=== PATIENT | female | born 1965 | race Caucasian/White ===

== ENCOUNTER → 2017-03-03 | Outpatient (CLI) | payer BC ==
[~2017-03-03] MED LIST: CEPH500C2 PO; CYAN3INJ IM; FERRTAB18 PO; IMT50 PO; LSN20 PO; MTR800 PO; NXM/40 PO; PEDICHW50 PO; PROM1SYP PO; VNTHFA/IN INH
[2017-03-03 18:24] LABS: URINE APPEARANCE CLEAR (CLEAR); URINE BILIRUBIN NEG (NEG); URINE COLOR YELLOW; URINE NITRITE NEG (NEG); URINE PH 5.5 (4.5-7.5); URINE SPECIFIC GRAVITY 1.007 (1.000-1.030); UROBILINOGEN NEG (NEG)
[2017-03-03 18:27] LABS: INR 0.9 (0.9-1.1); PARTIAL THROMBOPLASTIN RATIO 1.2; PROTHROMBIN TIME (PATIENT) 9.6 SECONDS (9.0-12.0)
[2017-03-03 18:28] LABS: BASO % 0.5 %; BASO ABS # 0.02 K/uL (0-0.2); COMPLETE YES; EOS % 8.9 %; HEMATOCRIT 38.4 % (37-47); LYMPH % 25.3 %; LYMPH ABS # 1.02 K/uL (1.2-3.4); MEAN CELL VOLUME 80.8 fL (80-100); MEAN CORPUSCULAR HEMOGLOBIN 25.1 pg (25-34); MEAN PLATELET VOLUME 9.2 fL (7.4-10.4); MONO % 13.9 %; NEUT % 51.4 %; PLATELET COUNT 307 K/uL (130-400); RED BLOOD COUNT 4.75 M/uL (4.2-5.4); WHITE BLOOD COUNT 4.03 K/uL (4.8-10.8)
[2017-03-03 18:29] LABS: MANUAL MICROSCOPIC REQUIRED? NO; REVIEW REQ? NO
[2017-03-03 18:43] LABS: BLOOD UREA NITROGEN 8 mg/dl (7-18); BUN/CREATININE RATIO 13.3 (10-20); CALCIUM 8.8 mg/dl (8.5-10.1); CARBON DIOXIDE 31 mmol/L (21-32); CHLORIDE 103 mmol/L (98-107); CREATININE 0.58 mg/dl (0.60-1.20); GLUCOSE 80 mg/dl (70-99); POTASSIUM 4.1 mmol/L (3.5-5.1); SODIUM 140 mmol/L (136-145)
--- NOTE | 2017-03-03 19:25 | DIAGNOSTIC IMAGING REPORT ---
TWO VIEW CHEST CLINICAL HISTORY: Preoperative examination. FINDINGS: PA and lateral chest radiographs are compared to study dated 06/24/2015 and correlated with chest CT dated 09/07/2015. The PA view is degraded by patient rotation. The cardiomediastinal silhouette is unremarkable. There is mild atherosclerotic calcification of the thoracic aorta. Chronic interstitial thickening is similar to previous. The lungs and pleural spaces are clear. There is no pneumothorax. The bony thorax appears intact. IMPRESSION: No active disease in the chest. Electronically signed by: Juan Carlos Jimenez M.D. 03/03/2017 7:24 PM Dictated Date/Time: 03/03/2017 7:23 PM
== END | disposition home or self-care (01) ==
LOC: C.RAD 16:50
PROVIDERS: ATTEND Orthopaedic Surgery Sports Medicine
DX: Z01.810 Encounter for preprocedural cardiovascular examination (principal)

== ENCOUNTER 2017-03-07 05:35 | Observation (INO) | payer BC ==
[2017-03-03 14:38] VITALS: Ht 160 cm; Wt 80.9 kg
--- NOTE | 2017-03-06 20:12 | HISTORY & PHYSICAL EXAMINATION ---
DATE OF ADMISSION: 03/07/2017 SUBJECTIVE CHIEF COMPLAINT: Left ankle pain and cellulitis. HISTORY OF PRESENT ILLNESS: This is a patient who had a pantalar fusion done years ago and developed chronic cellulitis of the left lower extremity. She subsequently had the hardware removed, actually the fusion had healed and had a spacer placed into the area of the arnulfo made of antibiotic cement with a metal arnulfo in the central portion. The patient was doing well; however, over the past few months she has had worsening chronic cellulitis of the left lower extremity. She has had a change in her p.o. antibiotics which she has been on for multiple years. At this time, she is going to be set up for removal of the antibiotic cement spacer. PAST MEDICAL HISTORY: Asthma and acid reflux. SOCIAL HISTORY: The patient denies alcohol and tobacco use. PAST SURGICAL HISTORY: x4, gastric bypass surgery, multiple ankle surgeries and skin removal surgery. ALLERGIES: MORPHINE AND GENTAMICIN. CURRENT MEDICATIONS: Lisinopril 2.5 mg one p.o. daily, Imitrex 25 mg one p.o. at the onset of a headache, Advair Diskus one puff every 4 hours as needed, Nexium 40 mg one p.o. daily, levofloxacin 500 mg one p.o. daily, Augmentin 500/125 mg one p.o. b.i.d. and ibuprofen 800 mg one p.o. b.i.d. p.r.n. OBJECTIVE PHYSICAL EXAMINATION: GENERAL: The patient is alert and oriented x3. She is in no acute distress. She is a well-dressed, well-nourished 51-year-old female. Her affect is appropriate. CARDIOVASCULAR: Heart has a regular rhythm and rate without murmurs. LUNGS: Clear to auscultation. EXTREMITIES: Dorsalis pedis, posterior tib pulse +2/4. Cap refill is less than 2 seconds. LYMPHATIC: No evidence of any swollen lymph nodes. MUSCULOSKELETAL: The patient has a compensated gait favoring the left lower extremity. Upon inspection of the left lower extremity, the patient has well-healed surgical incisions of the left ankle and foot. There is mild erythema and moderate edema noted of the left lower extremity, she has diffuse tenderness. There is no range of motion secondary to ankle and subtalar fusions. NEUROLOGIC: Sensation is normal and intact distally. X-RAY EXAM: Multiple views of the left ankle demonstrate a metal arnulfo with slight curvature at the most inferior aspect to what appears to be a spacer of cement from the plantar calcaneus into the distal one-third aspect of the tibia. ASSESSMENT AND DIAGNOSES: 1. Chronic and recurrent cellulitis, left lower extremity. 2. Retained implant, left lower extremity. PLAN: The above assessment was discussed with the patient. At this time, it is recommended the patient have removal of the antibiotic cement from the plantar heel and possible implantation of Stimulan antibiotic beads into the canal. All potential risks, benefits, complications, alternatives and rehab have been discussed with the patient. At this time, she wishes to proceed with the surgery as indicated and she will be scheduled for the surgery on 03/07/2017.
[~2017-03-07] VITALS: Ht 160 cm; Wt 80.9 kg
[2017-03-07] VITALS (10 sets, daily range): BP systolic 106–143; BP diastolic 67–89; PULSE 74–90; TEMP 36.7–37.1; O2SAT 92–100
[~2017-03-07 05:35] MED LIST changes: -CEPH500C2 PO; -FERRTAB18 PO; -MTR800 PO
[2017-03-07] MEDS ORDERED: CEFAZOLIN 2000 MG/60 ML D5W IV SCH (06:00)
[2017-03-07] MEDS ORDERED: LACTATED RINGER'S 1000ML IV SCH (06:00)
[2017-03-07] MEDS ORDERED: DEXAMETHASONE SOD INJ 4 MG/ML VIAL ONE (06:23)
[2017-03-07] MEDS ORDERED: BUPIVACAINE/EPINEPHRINE 0.25% 1:200,000 30 ML VIAL ONE (06:23)
[2017-03-07] MEDS ORDERED: FENTANYL CITRATE INJ 50 MCG/1 ML 2 ML VIAL ONE ×2 (06:53→09:51)
[2017-03-07] MEDS ORDERED: MIDAZOLAM HCL 1 MG/ML 2ML VIAL ONE ×3 (06:53→08:10)
[2017-03-07] MEDS ORDERED: PROPOFOL IV EMULSION 10 MG/ML 20 ML VIAL IV ONE ×2 (06:53→08:34)
[2017-03-07] MEDS ORDERED: LIDOCAINE HCL 2% 2 ML VIAL (20MG/ML) ONE ×2 (06:53→08:34)
[2017-03-07] MEDS ORDERED: BUPIVACAINE 0.5 % 5 MG/1 ML MPF 30ML VIAL ONE (07:06)
--- NOTE | 2017-03-07 07:36 | History & Physical Bridge Note ---
H&P Re-Evaluation Bridge Note: I have examined the patient, reviewed the History & Physical and in the interval since the performance of the History & Physical I have noted the following changes of clinical significance: No changes noted
[2017-03-07] MEDS ORDERED: BACITRACIN 50000 UNIT VIAL ONE (07:54)
[2017-03-07] MEDS: VANCOMYCIN HCL 1000MG/20ML VIAL ONE ×2 (08:45→08:47)
[2017-03-07] MEDS ORDERED: SOD PHOSPHATE/SOD BIPHOSPHATE ENEMA 132 ML BTL PR PRN (09:30)
[2017-03-07] MEDS ORDERED: PROMETHAZINE HCL INJ 6.25 MG in SODIUM CHLORIDE 0.9% 50ML 50 ML IV PRN (09:30)
[2017-03-07] MEDS ORDERED: PROMETHAZINE HCL 12.5 MG/10 ML UDP PO PRN (09:30)
[2017-03-07] MEDS ORDERED: FENTANYL CITRATE INJ 50 MCG/1 ML 2 ML VIAL IV PRN (09:30)
[2017-03-07] MEDS ORDERED: ALUMINUM/MAGNESIUM/SIMETH (MAALOX MAX) 30 ML UDC PO PRN (09:30)
[2017-03-07] MEDS ORDERED: ALBUTEROL HFA 8 GM INHALER INH PRN (09:30)
[2017-03-07] MEDS ORDERED: SUMATRIPTAN SUCCINATE 50 MG TAB PO PRN (09:30)
[2017-03-07] MEDS ORDERED: BISACODYL 10 MG SUPP PR PRN (09:30)
[2017-03-07] MEDS ORDERED: EpHEDrine SULFATE INJ 50 MG/ML AMP IV PRN (09:30)
[2017-03-07] MEDS ORDERED: MAGNESIUM HYDROXIDE SUSP 30 ML UDC PO PRN (09:30)
[2017-03-07] MEDS ORDERED: ONDANSETRON INJ 2 MG/ML 2 ML VIAL IV PRN (09:30)
[2017-03-07] MEDS ORDERED: ZOLPIDEM TARTRATE 5 MG TAB PO PRN (09:30)
[2017-03-07] MEDS ORDERED: ATROPINE SULFATE 0.1 MG/ML 5ML SYR IV PRN (09:30)
--- NOTE | 2017-03-07 09:33 | [facility] Post Operative Brief Note ---
Immediate Operative Summary Operative Date March 07, 2017. Pre-Operative Diagnosis Left Retained antibiotic tibial nail; Cellulitis Post-Operative Diagnosis Left Retained antibiotic tibial nail; Cellulitis Procedure(s) Performed Left Removal Antibiotic Tibial Nail, Irrigation and Debridement Tibia, Talus and Calcaneus Bone; Implantation of Stimulan Antibiotic Beads Surgeon Dr. Anthony Harman Repairer Cylinder Heads Surgeon(s) Kyle Daly PA-C Estimated Blood Loss 10ml Findings See Dict Specimens SPECIMEN A: Explant Drains None Anesthesia Local w/ spinal and sedation Complication(s) None Disposition Recovery Room / PACU
--- NOTE | 2017-03-07 09:49 | Discharge Instructions ---
Discharge Instructions Date of Service March 07, 2017. Admission Reason for Admission: Left Ankle Painful Hardware Discharge Discharge Diagnosis / Problem: left ankle retained hardware, recurrent cellulitis Discharge Goals Goal(s): Decrease discomfort Activity Recommendations Activity Limitations: per Instructions/Follow-up section Weightbearing Status: Left non-weightbearing . Instructions / Follow-Up Instructions / Follow-Up PAIN MEDICATIONS: Recent Dilaudid prescriptions have been filled from pain management. You are to continue your Dilaudid from them for post operative care after discharge. Their clinic will be responsible for your pain prescriptions. ACTIVITY RECOMMENDATIONS: Limitations: No weight bearing to affected limb at all times. SPECIAL CARE INSTRUCTIONS: * Some drainage onto the dressing is normal and is no cause for alarm. * Some swelling is natural especially after walking. * When resting, keep your foot elevated above the level of your heart. * Call [facility] if you notice: -Increased drainage -Fever over 101 degrees F -Severe constant pain BANDAGE: * Leave bandage/cast in place unless otherwise directed. * Keep bandage/cast dry at all times. FOLLOW UP VISIT WITH DR. CHAVEZ If appointment is not already scheduled: Please call [facility] after you get home today to schedule a follow-up appointment for [address] Chavez at . Current Hospital Diet Patient's current hospital diet: Regular Diet Discharge Diet Recommended Diet: Regular Diet Procedures Procedures Performed: Left Removal Antibiotic Tibial Nail, Irrigation and Debridement Tibia, Talus and Calcaneus Bone; Implantation of Stimulan Antibiotic Beads Pending Studies Studies pending at discharge: no Medical Emergencies . Who to Call and When: Medical Emergencies: If at any time you feel your situation is an emergency, please call 911 immediately. . Non-Emergent Contact Non-Emergency issues call your: Surgeon Call Non-Emergent contact if: temperature is above 101, wound has increased drainage . "Provider Documentation" section prepared by Kyle Daly. . VTE Core Measure Inpt VTE Proph given/why not?: Ramin Shirley
[2017-03-07] MEDS ORDERED: IV FLUIDS COMPLETED PRN (10:00)
[2017-03-07] MEDS ORDERED: ONDANSETRON INJ 2 MG/ML 2 ML VIAL ONE (10:01)
--- NOTE | 2017-03-07 10:03 | OPERATIVE REPORT ---
DATE OF OPERATION: 03/07/2017 PREOPERATIVE DIAGNOSES: 1. Left retained antibiotic tibial nail. 2. Cellulitis, left lower extremity. POSTOPERATIVE DIAGNOSIS: Same. PROCEDURES: 1. Left removal of antibiotic tibial nail. 2. Irrigation and debridement of the tibia, irrigation and debridement of the talus, irrigation and debridement of the calcaneus. 3. Implantation antibiotic laden Stimulan beads with vancomycin. SURGEON: Dr. Harman. LABOR EXPEDITER: Kyle Daly PA-C who was present for patient positioning, sterile prep and drape, management of retractors and instruments. He was present through the critical portions of the case including wound closure, application of sterile dressing and transport of the patient to recovery. ANESTHESIA: Local with spinal and sedation. SPECIMENS: Explant from the left tibia. DRAINS: None. COMPLICATIONS: None. BLOOD LOSS: 10 mL. 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 She subsequently had been treated for osteomyelitis of the distal tibia prior to that which was essentially cleared as proven by indium-labeled white cell scan with sulfur colloid studies. The patient had a placement of antibiotic laden cement tibial nail placed to treat osteomyelitis which was supposed successful; however, the nail had been implanted for several months and it was due time to be removed. The patient also had intermittent cases of cellulitis without abscess of the left lower extremity managed with oral antibiotics and rest. The patient was then scheduled for removal of antibiotic tibial nail and implantation of stimulon antibiotic beads. All potential risks, benefits, complications, alternatives, rehab, potential for incomplete relief of symptoms, need for further surgery, DVT, PE, , persistent pain, swelling, scarring, weakness, neurovascular injury, wound complications, need for further surgery up to possibly leading to amputation of the lower extremity was discussed with the patient. The patient decided to proceed with the procedure as indicated. OPERATION AND FINDINGS: PROCEDURE: The patient was taken to the operative suite, placed supine on the operating room table. After review of the consent and identification of proper operative site, the patient was then sedated and a spinal anesthetic was administered by the anesthesiologist. Next, the patient was laid supine on the operating room table and the left lower extremity was then sterilely prepped and draped in usual fashion with a tourniquet applied high on the left lower extremity over cast padding. This was then followed by incision in the plantar aspect of the left heel inside the previous incision with a 15 blade scalpel. Next, the Metzenbaum scissors were used to carefully dissect through the plantar heel pad along the site of previous incision down to the level of the plantar calcaneus. The distal end of the cement tibial nail was then encountered and using a pair of heavy pliers the nail was then removed without difficulty. Next, a small curet was then introduced into the tibia, talus and calcaneus to debride the endosteal zone of the bones mentioned and then pulsatile lavage 6 liters with bacitracin was used to lavage until clear. After this was completed stimulon vancomycin laden antibiotic beads were created and then placed into the medullary canal of the tibia within the talus and the calcaneus and impacted with multiple instruments and a small mallet. The beats were then impacted with a small bone tamp and mallet. The wound was then irrigated once again with pulsatile lavage and then the tissue was closed full thickness with 2-0 nylon suture. Once this was completed an ankle block and local anesthetic was injected 0.5% Marcaine plain, approximately 30 mL and sterile compressive dressing and posterior plaster splint was applied overwrapped with an Mathew wrap. The tourniquet was released. The patient was awakened and taken to recovery in stable condition. I attest to the content of the Intraoperative Record and any orders documented therein. Any exceptio ns are noted below.
--- NOTE | 2017-03-07 10:21 | Anesthesiology Progress Note ---
Anesthesia Post Op Note Date & Time March 07, 2017 at 10:20 Vital Signs Pain Intensity: 2 Vital Signs Past 12 Hours Date Time Temp Pulse Resp B/P Pulse Ox O2 Delivery O2 Flow Rate FiO2 03/07/17 10:10 71 18 121/65 99 Nasal Cannula 3 03/07/17 09:55 75 18 133/74 99 Nasal Cannula 3 03/07/17 09:45 36.9 74 18 129/74 100 Nasal Cannula 3 03/07/17 09:35 73 16 124/81 100 Nasal Cannula 3 03/07/17 09:25 36.7 77 16 106/69 100 Nasal Cannula 3 03/07/17 06:02 37 90 18 106/88 96 Room Air Notes Mental Status: alert / awake / arousable, participated in evaluation Pt Amnestic to Procedure: Yes Nausea / Vomiting: adequately controlled Pain: adequately controlled Airway Patency, RR, SpO2: stable & adequate BP & HR: stable & adequate Hydration State: stable & adequate Neuraxial Anesthesia: was administered, sensory block is resolving Anesthetic Complications: no major complications apparent
[2017-03-07] MEDS: HYDROmorphone INJ 1 MG/ML SYR IV PRN ×8 (11:14→22:05)
[2017-03-07] MEDS: D5W AND 1/2NSS + 20MEQ KCL 1,000 ML IV SCH (11:14)
--- NOTE | 2017-03-07 11:37 | DIAGNOSTIC IMAGING REPORT ---
LEFT ANKLE 3 VIEWS CLINICAL HISTORY: Postoperative examination. FINDINGS: Three portable views of the left ankle are compared to a study dated 10/29/2015. The examination is performed through a splint, obscuring fine bony detail. The skeletal structures are osteopenic. There are postoperative changes from fusion of the left ankle joint. There is complete fusion of the tibia, the talus, and the calcaneus. The distal fibula has been resected. The orthopedic hardware has been removed as compared to previous. Radiodense structures fill the hardware cavity, possibly representing antibiotic material. Additional small radiodensities are seen along the plantar aspect of the foot at the level of the anterior calcaneus. No acute fracture is identified. No bony erosion or periostitis is seen. Degenerative spurring is seen along the dorsal aspect of the tarsal bones. Soft tissue edema is present throughout the visualized left lower extremity. IMPRESSION: 1. Diffuse soft tissue edema with no acute bony abnormality clearly identified. 2. There are postoperative changes from ankle joint fusion. Orthopedic hardware has been removed from previous. 3. Radiodensities fill the orthopedic hardware cavity, possible representing antibiotic material. Clinical correlation will be required. Dictated: 03/07/2017 10:14 AM Transcribed: 03/07/2017 11:37 AM [place] Electronically signed by: Juan Carlos Jimenez M.D. 03/07/2017 11:49 AM Dictated Date/Time: 03/07/2017 10:14 AM
[2017-03-07] MEDS: KETOROLAC TROMETHAMINE 30 MG/ML VIAL IV. SCH ×2 (11:56→17:28)
--- NOTE | 2017-03-07 11:57 | Medical Consult ---
Consultation Date of Consultation: March 07, 2017. Attending Physician: Anthony Harman D.O. Reason for Consultation: Recurrent cellulitis, post op History of Present Illness Patient is a 51-year-old female who was admitted to the hospital under the orthopedic service for concerns of chronic and recurrent left lower extremity cellulitis in the setting of antibiotic laden cement tibial nail placement following osteomyelitis of the distal tibia. Since that the patient has been noted cellulitis the extremity. She has been treated with oral antibiotic therapy, and most recently was on p.o. Augmentin. She was admitted for removal of the tibial nail and now had placement of antibiotic beads following that removal process this admission. I did discuss this patient with Kyle Denise PA-C as well. I reviewed the patient's records thoroughly. Cultures from previous infections were reviewed, it was noted that the patient has had MSSA in the. 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 She is currently being treated with IV Ancef postoperatively. She has not had any labs micro completed. She did have ankle x-ray which showed diffuse tissue edema with no acute bony abnormality the left ankle. Postoperative changes from ankle joint effusion were noted, and orthopedic hardware removal was also noted from previous exam. Past Medical/Surgical History Medical Problems: (1) Cellulitis of left lower extremity Permanent Comment: Recurrent Status: Acute (2) Fever Status: Acute Medical Problems: (1) Acute lumbar back pain (2) Acute pulmonary embolus (3) Anemia (4) Ankle pain (5) Asthma (6) Cellulitis (7) Cellulitis (8) cellulitis (9) Cellulitis and abscess of left lower extremity (10) Cellulitis of left lower leg (11) Cellulitis of leg (12) Cellulitis, wound, post-operative (13) Chills (14) Chronic abdominal pain (15) Encounter for wound re-check (16) Foot pain, left (17) GERD (gastroesophageal reflux disease) (18) Hypertension (19) intractable abdominal pain (20) Left leg cellulitis (21) Left leg cellulitis (22) Left leg cellulitis (23) Left leg pain (24) Leg pain, left (25) Migraine headache (26) Pain of left lower leg (27) Retained suture (28) Right hip pain (29) Sepsis (30) SIRS (systemic inflammatory response syndrome) (31) status post gastric by pass surgery 2 years back (32) Tachycardia (33) Wound cellulitis Family History Patient reports no known family medical history. Noncontributory Social History Smoking Status: Never Smoker Drug Use: none Marital Status: Occupation Status: employed Allergies Coded Allergies: Gentamicin (Verified Allergy, Intermediate, HIVES/RASH-GAVE BENADRYL 50MG IV, 03/07/17) Latex1 -Allergic Contact Dermititis (Verified Allergy, Unknown, SWOLLEN EYES, 03/07/17) UNSURE - ONLY HAPPENED ONCE Morphine (Verified Adverse Reaction, Unknown, Shaking, diaphoretic, rash, 03/07/17) Home Medications Reported Home Medications Medications Dose Route/Sig Max Daily Dose Days Date Category Dose Instructions Ventolin Hfa (Albuterol) 200 Puffs/61492 Mcg Aers 2-4 Puffs INH Q6H PRN 03/03/17 Reported Flintstones Chewable (Pediatric Multiple Vitamin W/) 1 Chw Chw 1 Tab PO QAM 05/23/16 Reported Vitamin B-12 Inj (Cyanocobalamin) Inj 1,000 Mcg IM MONTHLY 04/13/15 Reported Lisinopril 20 Mg Tab 20 Mg PO QAM 04/13/15 Reported Sumatriptan Succinate 50 Mg Tab 50 Mg PO UD PRN 04/13/15 Reported TAKE 1 TABLET AT ONSET OF MIGRAINE, MAY REPEAT IN 2 HOURS IF NEEDED. MAXIMUM OF 4 TABLETS/24 HOURS. Phenergan 6.25MG/5ML (Promethazine HCl) Syrp 12.5 Mg PO Q4H PRN 08/26/14 Reported Nexium (Esomeprazole Magnesium) 40 Mg Cap 40 Mg PO QAM 10/16/13 Reported Current Inpatient Medications Current Inpatient Medications Medications (Trade) Dose Ordered Sig/Rena Route Start Time Stop Time Status Last Admin Dose Admin Lactated Ringer's 1,000 ml @ 15 mls/hr Q24H IV 03/07/17 06:00 03/08/17 05:59 Cefazolin Sodium (Ancef 2000mg/60 ml D5W) 60 ml @ 100 mls/hr PREOP IV 03/07/17 06:00 03/07/17 18:00 03/07/17 07:41 100 MLS/HR Fentanyl Citrate (Fentanyl Inj) 50 mcg Q5M PRN IV 03/07/17 09:30 03/07/17 14:30 Ondansetron HCl 4 mg 4 mg ONE PRN IV 03/07/17 09:30 03/07/17 14:30 Promethazine HCl/ Sodium Chloride (Phenergan Inj/ Nss 50ml) 50.25 ml @ 202 mls/hr ONE PRN IV 03/07/17 09:30 03/07/17 14:30 Ephedrine Sulfate (EpHEDrine SULFATE INJ) 5 mg Q5M PRN IV 03/07/17 09:30 03/07/17 14:30 Atropine Sulfate (Atropine Sulfate 0.1MG/Ml Inj) 0.5 mg Q1M PRN IV 03/07/17 09:30 03/07/17 14:30 Albuterol (Ventolin Hfa Inhaler) as needed for SOB Q6H PRN INH 03/07/17 09:30 04/06/17 09:29 Cyanocobalamin (Vitamin B-12 Inj) 1,000 mcg Th@0900 IM 03/13/17 09:00 04/12/17 08:59 Lisinopril (Zestril Tab) 20 mg QAM PO 03/08/17 09:00 04/07/17 08:59 Multivitamins (Flintstones Complete Tab) 1 tab QAM PO 03/08/17 09:00 04/07/17 08:59 Promethazine HCl (Phenergan Syrup) 12.5 mg Q4H PRN PO 03/07/17 09:30 04/06/17 09:29 Sumatriptan Succinate (Imitrex Tab) 50 mg UD PRN PO 03/07/17 09:30 04/06/17 09:29 Pantoprazole Sodium 40 mg 40 mg QAM PO 03/08/17 09:00 04/07/17 08:59 Potassium Chloride/Dextrose/ Sod Cl (D5W And 1/2nss + 20meq KCl) 1,000 ml @ 75 mls/hr [id number] IV 03/07/17 11:00 04/06/17 10:59 03/07/17 11:14 75 MLS/HR Ketorolac Tromethamine (Toradol Inj) 30 mg Q6H IV. 03/07/17 12:00 03/08/17 06:01 Magnesium Hydroxide (Milk Of Magnesia Susp) 30 ml Q6H PRN PO 03/07/17 09:30 04/06/17 09:29 Bisacodyl (Dulcolax Supp) 10 mg DAILY PRN DC 03/07/17 09:30 04/06/17 09:29 Sodium Biphosphate/ Sodium Phosphate (Fleet Enema) 132 ml DAILY PRN DC 03/07/17 09:30 04/06/17 09:29 Senna (Senokot Tab) 17.2 mg HS PO 03/07/17 21:00 04/06/17 20:59 Docusate Sodium (coLACE CAP) 100 mg BID PO 03/07/17 21:00 04/06/17 20:59 Diphenhydramine HCl (Benadryl Cap) 25 mg Q8H PRN PO 03/07/17 09:30 04/06/17 09:29 Al Hydrox/Mg Hydrox/Simethicone (Maalox Max Susp) 15 ml Q4H PRN PO 03/07/17 09:30 04/06/17 09:29 Zolpidem Tartrate (Ambien Tab) 5 mg HSZ PRN PO 03/07/17 09:30 04/06/17 09:29 Multivitamins 1 tab 1 tab QAM PO 03/08/17 09:00 04/07/17 08:59 Cefazolin Sodium/ Dextrose (Ancef Iv/D5 50ml) 60 ml @ 100 mls/hr Q8H IV 03/07/17 16:00 03/08/17 00:35 Hydromorphone HCl (Dilaudid Inj) 1 mg Q1HWA PRN IV 03/07/17 09:30 03/21/17 09:29 03/07/17 11:14 1 MG Miscellaneous (Iv Fluids Completed) 1 ea PRN PRN N/A 03/07/17 10:00 03/07/18 09:59 Review of Systems Constitutional: No chills, No fever, No sweats, No weakness Eyes: No worsening of vision ENT: No hearing loss Respiratory: No cough, No hemoptysis Cardiovascular: No chest pain, No palpitations Abdomen: No diarrhea, No nausea, No pain, No vomiting Musculoskeletal: + joint pain (left ankle/foot), + swelling (left lower extremity ) Genitourinary - Female: No dysuria, No urinary frequency, No urinary urgency Integumentary: + color change (erythema of the left lower extremity) Physical Exam Date Time Temp Pulse Resp B/P Pulse Ox O2 Delivery O2 Flow Rate FiO2 03/07/17 10:59 78 17 134/88 03/07/17 10:30 97 Nasal Cannula 2.0 03/07/17 10:30 37.1 90 18 131/81 97 Nasal Cannula 2.0 03/07/17 10:30 Nasal Cannula 2.0 03/07/17 10:10 71 18 121/65 99 Nasal Cannula 3 03/07/17 09:55 75 18 133/74 99 Nasal Cannula 3 03/07/17 09:45 36.9 74 18 129/74 100 Nasal Cannula 3 03/07/17 09:35 73 16 124/81 100 Nasal Cannula 3 03/07/17 09:25 36.7 77 16 106/69 100 Nasal Cannula 3 03/07/17 06:02 37 90 18 106/88 96 Room Air General Appearance: WD/WN, no apparent distress Head: normocephalic, atraumatic Eyes: normal inspection, sclerae normal ENT: hearing grossly normal Neck: supple, trachea midline Respiratory/Chest: chest non-tender, lungs clear, normal breath sounds, no respiratory distress, no accessory muscle use Cardiovascular: regular rate, rhythm, no murmur Abdomen/GI: normal bowel sounds, non tender, soft Extremities/Musculoskelatal: + pertinent finding (very large dressing in the left lower extremity) Neurologic/Psych: alert, normal mood/affect, oriented x 3 Skin: warm/dry, no rash Laboratory Results LEFT ANKLE THREE VIEWS CLINICAL HISTORY: Postoperative examination. FINDINGS: Three portable views of the left ankle are compared to a study dated 10/29/2015. The examination is performed through a splint, obscuring fine bony detail. The skeletal structures are osteopenic. There are postoperative changes from fusion of the left ankle joint. There is complete fusion of the tibia, the talus, and the calcaneus. The distal fibula has been resected. The orthopedic hardware has been removed as compared to previous. Radiodense structures fill the hardware cavity, possibly representing antibiotic material. Additional small radiodensities are seen along the plantar aspect of the foot at the level of the anterior calcaneus. No acute fracture is identified. No bony erosion or periostitis is seen. Degenerative spurring is seen along the dorsal aspect of the tarsal bones. Soft tissue edema is present throughout the visualized left lower extremity. IMPRESSION: 1. Diffuse soft tissue edema with no acute bony abnormality clearly identified. 2. There are postoperative changes from ankle joint fusion. Orthopedic hardware has been removed from previous. 3. Radiodensities fill the orthopedic hardware cavity, possible representing antibiotic material. Clinical correlation will be required. Assessment & Plan Patient with left lower extremity recurrent cellulitis in the setting of previously infected hardware of the left ankle and antibiotic spacer in place [employer]. Since admission, the antibiotic spacer was removed and she is receiving IV Ancef currently. The patient's previous cultures from her left ankle grew MSSA. She therefore no longer has any hardware in her ankle. Would consider MRI to assess for chronic bone infection with recurrent cellulitis in the setting of previous hardware/recent abx spacer. Recommend continued antibiotic therapy likely for at least 2 weeks but possible for longer course pending MRI of the left ankle/foot. This patient may be a good candidate for IV Dalbavancin. Will discuss with orthopedics. PROVIDER ADDENDUM: Patient examined and reviewed with Ms. Royal. Agree with above assessment.
[2017-03-07] MEDS: CEFAZOLIN IV 2,000 MG in DEXTROSE 5% 50ML 50 ML IV SCH (16:05)
[2017-03-07] MEDS: DOCUSATE SODIUM 100 MG CAP PO SCH (20:43)
[2017-03-07] MEDS: SENNA 8.6 MG TAB PO SCH (20:43)
[2017-03-08] MEDS: HYDROmorphone INJ 1 MG/ML SYR IV PRN ×18 (00:12→23:54)
[2017-03-08] MEDS: CEFAZOLIN IV 2,000 MG in DEXTROSE 5% 50ML 50 ML IV SCH (00:17)
[2017-03-08] MEDS: KETOROLAC TROMETHAMINE 30 MG/ML VIAL IV. SCH ×2 (00:17→06:16)
[2017-03-08] MEDS: D5W AND 1/2NSS + 20MEQ KCL 1,000 ML IV SCH ×2 (00:18→12:55)
[2017-03-08] MEDS ORDERED: PROMETHAZINE HCL 25 MG/20 ML UDP PO PRN (01:45)
[2017-03-08] MEDS ORDERED: PROMETHAZINE HCL SYRUP 6.25 MG/5 ML PO PRN (01:45)
[2017-03-08 03:15] VITALS: BP 120/73; PULSE 77; TEMP 36.8; O2SAT 96
[2017-03-08 06:27] LABS: HEMATOCRIT 32.9 % (37-47); MEAN CELL VOLUME 79.3 fL (80-100); MEAN CORPUSCULAR HEMOGLOBIN 24.8 pg (25-34); MEAN CORPUSCULAR HGB CONC 31.3 g/dl (32-36); PLATELET COUNT 278 K/uL (130-400); RED BLOOD COUNT 4.15 M/uL (4.2-5.4); WHITE BLOOD COUNT 5.48 K/uL (4.8-10.8)
[2017-03-08 07:03] VITALS: BP 132/80; PULSE 71; TEMP 36.8; O2SAT 96
[2017-03-08] MEDS: MULTIVITAMIN TAB PO SCH (08:07)
[2017-03-08] MEDS: PANTOprazole SOD 40 MG TAB PO SCH (08:07)
[2017-03-08] MEDS: LISINOPRIL 20 MG TAB PO SCH (08:07)
[2017-03-08] MEDS: FLINTSTONES COMPLETE CHEWABLE TAB PO SCH (08:07)
[2017-03-08] MEDS: DOCUSATE SODIUM 100 MG CAP PO SCH ×2 (08:07→20:53)
--- NOTE | 2017-03-08 09:53 | Orthopedic Progress Note ---
Orthopedic Progress Note Date of Service March 08, 2017. Subjective Post OP Day: 1 Reports: feeling well, pain controlled w PO medications, Denies: SOB, calf pain , chest pain, complaints, light headedness, nausea / vomiting Objective calves soft nontender, dressing C/D/I, A&O x3, toes mobile Date Time Temp Pulse Resp B/P Pulse Ox O2 Delivery O2 Flow Rate FiO2 03/08/17 08:14 Room Air 03/08/17 07:03 36.8 71 19 132/80 96 Room Air 03/08/17 03:15 36.8 77 16 120/73 96 Room Air 03/08/17 00:10 Room Air 03/07/17 23:54 36.8 79 16 115/76 95 Room Air 03/07/17 19:13 36.7 83 18 106/67 94 Room Air 03/07/17 16:00 94 Room Air 03/07/17 14:51 36.8 74 18 111/77 94 Room Air 03/07/17 13:30 85 18 124/84 97 03/07/17 12:23 37.0 77 19 132/82 92 Room Air 03/07/17 11:30 79 18 143/89 100 03/07/17 10:59 78 17 134/88 03/07/17 10:30 97 Nasal Cannula 2.0 03/07/17 10:30 37.1 90 18 131/81 97 Nasal Cannula 2.0 03/07/17 10:30 Nasal Cannula 2.0 03/07/17 10:10 71 18 121/65 99 Nasal Cannula 3 03/07/17 09:55 75 18 133/74 99 Nasal Cannula 3 Laboratory Results 24 Hours: Test 03/08/17 05:32 Hematocrit 32.9 % Hemoglobin 10.3 g/dL Assessment & Plan Assessment: POD #1 Left Removal Antibiotic Tibial Nail, Irrigation and Debridement Tibia, Talus and Calcaneus Bone; Implantation of Stimulan, Antibiotic Beads Plan: Patient feels well. Awaiting ID consult for possible home with IV antibiotics vs PO antibiotics. Should be able to D/C tomorrow Inhouse Planning Pain Management: Dilaudid Discharge Planning Discharge Planning: home with home health
[2017-03-08 15:15] VITALS: BP 148/91; PULSE 79; TEMP 36.9; O2SAT 96
[2017-03-08] MEDS: SENNA 8.6 MG TAB PO SCH (20:53)
[2017-03-08 23:32] VITALS: BP 142/87; PULSE 75; TEMP 36.8; O2SAT 96
[2017-03-09] MEDS: HYDROmorphone INJ 1 MG/ML SYR IV PRN ×6 (01:34→09:52)
[2017-03-09] MEDS: D5W AND 1/2NSS + 20MEQ KCL 1,000 ML IV SCH (01:38)
[2017-03-09 05:55] LABS: HEMATOCRIT 32.8 % (37-47); MEAN CELL VOLUME 79.2 fL (80-100); MEAN CORPUSCULAR HEMOGLOBIN 24.9 pg (25-34); MEAN CORPUSCULAR HGB CONC 31.4 g/dl (32-36); PLATELET COUNT 275 K/uL (130-400); RED BLOOD COUNT 4.14 M/uL (4.2-5.4); WHITE BLOOD COUNT 5.75 K/uL (4.8-10.8)
[2017-03-09 07:22] VITALS: BP_SYST 137; BP_SYST 144; BP_DIAS 77; BP_DIAS 87; PULSE 81; PULSE 93; TEMP 36.7; O2SAT 100
--- NOTE | 2017-03-09 08:06 | Orthopedic Progress Note ---
Orthopedic Progress Note Date of Service March 09, 2017. Subjective Post OP Day: 2 Reports: feeling well, Denies: SOB, chest pain, complaints, light headedness, nausea / vomiting Additional Notes: Patient is feeling well today. She states pain is tolerable at time of examination. She would like to be discharged today if possible. Objective calves soft nontender, capillary refill less than 2 sec., dressing C/D/I, A&O x3 , toes mobile Date Time Temp Pulse Resp B/P Pulse Ox O2 Delivery O2 Flow Rate FiO2 03/09/17 07:42 Room Air 03/09/17 07:22 36.7 81 16 144/87 100 Room Air 03/08/17 23:32 36.8 75 16 142/87 96 Room Air 03/08/17 23:00 Room Air 03/08/17 15:30 Room Air 03/08/17 15:15 36.9 79 17 148/91 96 Room Air 03/08/17 11:35 Room Air 03/08/17 08:14 Room Air Laboratory Results 24 Hours: Test 03/09/17 05:13 Hematocrit 32.8 % Hemoglobin 10.3 g/dL Assessment & Plan Assessment: POD #2 Left Removal Antibiotic Tibial Nail, Irrigation and Debridement Tibia, Talus and Calcaneus Bone; Implantation of Stimulan, Antibiotic Beads Plan: Patient feels well. D/C today Will go home on Keflex 500mg QID for 30 days. Inhouse Planning Pain Management: Dilaudid Discharge Planning Discharge Planning: home with home health Pain Management: other (Will follow up with Pain management)
[2017-03-09] MEDS ORDERED: CEPH500C2 PO (08:08)
[2017-03-09] MEDS: PANTOprazole SOD 40 MG TAB PO SCH (08:39)
[2017-03-09] MEDS: LISINOPRIL 20 MG TAB PO SCH (08:39)
[2017-03-09] MEDS: DOCUSATE SODIUM 100 MG CAP PO SCH (08:39)
[2017-03-09] MEDS: FLINTSTONES COMPLETE CHEWABLE TAB PO SCH (08:39)
[2017-03-09] MEDS: MULTIVITAMIN TAB PO SCH (08:40)
[2017-03-09 09:04] VITALS: BP 144/87; PULSE 81; TEMP 36.7; O2SAT 100
[2017-03-13] MEDS ORDERED: CYANOCOBALAMIN 1000 MCG/ML VIAL IM SCH (09:00)
--- NOTE | 2017-03-19 08:32 | Discharge Summary ---
Orthopedic Discharge Summary Admission Date/Reason March 07, 2017 at 09:40 Left Ankle Painful Hardware. Discharge Date/Disposition March 09, 2017 Home Diagnosis Principal Diagnosis: left hindfoot retained hardware, left ankle chronic recurrent cellulitis Procedure(s) Performed 1. Left removal of antibiotic tibial nail. 2. Irrigation and debridement of the tibia, irrigation and debridement of the talus, irrigation and debridement of the calcaneus. 3. Implantation antibiotic laden Stimulan beads with vancomycin Consultations Infectious Disease Medication Reconciliation New Medications: Cephalexin Monohydrate (Keflex) 500 Mg Cap 500 MG PO QID, #120 CAP Continued Medications: Albuterol Hfa (Ventolin Hfa) 200 Puffs/11221 Mcg Aers 2-4 PUFFS INH Q6H PRN for Shortness of Breath, #1 INHALER Cyanocobalamin (Vitamin B-12 Inj) Inj 1000 MCG IM MONTHLY Esomeprazole Magnesium (Nexium) 40 Mg Cap 40 MG PO QAM, CAP Lisinopril (Lisinopril) 20 Mg Tab 20 MG PO QAM Pediatric Multiple Vitamin W/ (Flintstones Chewable) 1 Chw Chw 1 TAB PO QAM, TAB Promethazine (Phenergan 6.25MG/5ML) Syrp 12.5 MG PO Q4H PRN for Nausea, ML Sumatriptan Succinate (Sumatriptan Succinate) 50 Mg Tab 50 MG PO UD PRN for Migraine TAKE 1 TABLET AT ONSET OF MIGRAINE, MAY REPEAT IN 2 HOURS IF NEEDED. MAXIMUM OF 4 TABLETS/24 HOURS. Admission Physical Exam As per Admitting History & Physical. Hospital Course The patient underwent the above noted procedure on 03.07.17. She was monitored for pain over the next 2 days. She was also seen by infectious disease for proper antibiotic choice on discharge. She was then d/c'd home on 03.09.17. Discharge Instructions Please refer to the electronic Patient Visit Report (Discharge Instructions) for additional information. Discharge Goals Goal(s): Decrease discomfort Activity Recommendations Activity Limitations: per Instructions/Follow-up section Weightbearing Status: Left non-weightbearing . Instructions / Follow-Up Instructions / Follow-Up PAIN MEDICATIONS: Recent Dilaudid prescriptions have been filled from pain management. You are to continue your Dilaudid from them for post operative care after discharge. Their clinic will be responsible for your pain prescriptions. ACTIVITY RECOMMENDATIONS: Limitations: No weight bearing to affected limb at all times. SPECIAL CARE INSTRUCTIONS: * Some drainage onto the dressing is normal and is no cause for alarm. * Some swelling is natural especially after walking. * When resting, keep your foot elevated above the level of your heart. * Call [facility] if you notice: -Increased drainage -Fever over 101 degrees F -Severe constant pain BANDAGE: * Leave bandage/cast in place unless otherwise directed. * Keep bandage/cast dry at all times. FOLLOW UP VISIT WITH DR. CHAVEZ If appointment is not already scheduled: Please call [facility] after you get home today to schedule a follow-up appointment for [address] Chavez at . Current Hospital Diet Patient's current hospital diet: Regular Diet Discharge Diet Recommended Diet: Regular Diet Procedures Procedures Performed: Left Removal Antibiotic Tibial Nail, Irrigation and Debridement Tibia, Talus and Calcaneus Bone; Implantation of Stimulan Antibiotic Beads Pending Studies Studies pending at discharge: no Medical Emergencies . Who to Call and When: Medical Emergencies: If at any time you feel your situation is an emergency, please call 911 immediately. . Non-Emergent Contact Non-Emergency issues call your: Surgeon Call Non-Emergent contact if: temperature is above 101, wound has increased drainage
== END 2017-03-09 10:43 | disposition home or self-care (01) ==
LOC: ENRESERVTM → ENRESERVDT → C.ACU 05:35 → C.3E 09:40
PROVIDERS: ADMIT Orthopaedic Surgery Sports Medicine; ATTEND Orthopaedic Surgery Sports Medicine
DX: Z45.89 Encounter for adjustment and management of other implanted devices (principal); L03.116 Cellulitis of left lower limb; J45.909 Unspecified asthma, uncomplicated; I10 Essential (primary) hypertension; E66.9 Obesity, unspecified; Z86.14 Personal history of Methicillin resistant Staphylococcus aureus infection; Z91.040 Latex allergy status; Z88.5 Allergy status to narcotic agent; Z98.84 Bariatric surgery status; Z98.890 Other specified postprocedural states; Z88.1 Allergy status to other antibiotic agents; Z68.31 Body mass index [BMI] 31.0-31.9, adult

== ENCOUNTER → 2017-10-03 | Outpatient (CLI) | payer BC ==
--- NOTE | 2017-10-03 19:53 | DIAGNOSTIC IMAGING REPORT ---
KUB CLINICAL HISTORY: Generalized abdominal pain. FINDINGS: 2 AP supine abdominal radiographs are correlated with abdominal CT dated 07/08/2015. There is a nonobstructed abdominal bowel gas pattern. Moderate to severe constipation is observed. Suture material is seen in the left upper quadrant. Cholecystectomy clips are noted. No evidence of intraperitoneal free air is seen on these supine images. Phleboliths are observed in the pelvis. The bony structures appear intact. Mild lumbosacral spondylosis is observed. IMPRESSION: Moderate to severe constipation. Electronically signed by: Juan Carlos Jimenez M.D. 10/03/2017 7:52 PM Dictated Date/Time: 10/03/2017 7:51 PM
== END | disposition home or self-care (01) ==
LOC: C.RAD 19:09
PROVIDERS: ATTEND Family Medicine
DX: R10.84 Generalized abdominal pain (principal); K59.00 Constipation, unspecified

== ENCOUNTER → 2017-12-09 | Outpatient (CLI) | payer BC ==
[2017-12-09 12:08] LABS: RETIC COUNT % 1.3 % (0.5-2.0)
[2017-12-09 12:34] LABS: ALT/SGPT 18 U/L (12-78); AST/SGOT 11 U/L (15-37); BLOOD UREA NITROGEN 15 mg/dl (7-18); CALCIUM 9.2 mg/dl (8.5-10.1); CARBON DIOXIDE 28 mmol/L (21-32); CREATININE 0.64 mg/dl (0.60-1.20); GLUCOSE 99 mg/dl (70-99); POTASSIUM 4.4 mmol/L (3.5-5.1); SODIUM 136 mmol/L (136-145); TOTAL PROTEIN 7.9 gm/dl (6.4-8.2)
[2017-12-09 12:37] LABS: ALBUMIN 3.5 gm/dl (3.4-5.0); ALKALINE PHOSPHATASE 123 U/L (45-117)
== END | disposition home or self-care (01) ==
LOC: C.LAB1850 10:57
PROVIDERS: ATTEND Family Medicine
DX: D64.9 Anemia, unspecified (principal)

== ENCOUNTER 2024-10-11 09:55 | Observation (INO) ==
--- NOTE | 2024-06-24 13:37 | PAT Medication Instructions ---
Medication Instructions Date of Service June 24, 2024 Home Medications Medication Instructions Recorded estradiol 0.01% (0.1 mg/gram) 1 g vaginal DAILY #42.5 grams 01/28/24 vaginal cream albuterol sulfate 90 mcg/actuation aerosol inhaler (Ventolin HFA) 2 puff inhalation Q4 PRN cyanocobalamin (vitamin B-12) 1,000 mcg/mL injection solution 1,000 mcg IM .EVERY 3 MONTHS PRN hydromorphone 4 mg tablet 4 mg PO Q6 PRN lisinopril 20 mg tablet 20 mg PO QAM 06/30/20 [History Confirmed 06/23/24] multivitamin-calcium carb chewable tablet (Flintstones Plus Calcium chewable tablet) 1 tab PO QAM promethazine 6.25 mg/5 mL oral syrup 25 mg PO .Q4-6HRS PRN estradiol 0.01% (0.1 mg/gram) vaginal cream 1 g vaginal DAILY bupropion HCl 300 mg 24 hr tablet, extended release 300 mg PO QAM fluconazole 150 mg tablet 150 mg PO Q3D PRN semaglutide 2 mg/dose (8 mg/3 mL) subcutaneous pen injector (Ozempic) 2 mg subcut WK STOP 7 days before surgery semaglutide 2 mg/dose (8 mg/3 mL) subcutaneous pen injector (Ozempic) 2 mg subcut WK Continue as directed fluconazole 150 mg tablet 150 mg PO Q3D PRN(if needed) STOP taking 24 hours before surgery estradiol 0.01% (0.1 mg/gram) vaginal cream 1 g vaginal DAILY DO NOT take the morning of surgery cyanocobalamin (vitamin B-12) 1,000 mcg/mL injection solution 1,000 mcg IM .EVERY 3 MONTHS PRN multivitamin-calcium carb chewable tablet (Flintstones Plus Calcium chewable tablet) 1 tab PO QAM Take morning of surgery With a small sip of water, OTHERWISE NOTHING TO EAT OR DRINK AFTER MIDNIGHT: albuterol sulfate 90 mcg/actuation aerosol inhaler (Ventolin HFA) 2 puff inhalation Q4 PRN(use if needed; please bring with you to hospital day of surgery if possible) hydromorphone 4 mg tablet 4 mg PO Q6 PRN(if needed) promethazine 6.25 mg/5 mL oral syrup 25 mg PO .Q4-6HRS PRN(if needed) bupropion HCl 300 mg 24 hr tablet, extended release 300 mg PO QAM Take evening before surgery albuterol sulfate 90 mcg/actuation aerosol inhaler (Ventolin HFA) 2 puff inhalation Q4 PRN(if needed) hydromorphone 4 mg tablet 4 mg PO Q6 PRN(if needed) promethazine 6.25 mg/5 mL oral syrup 25 mg PO .Q4-6HRS PRN(if needed) Other Notes If you have any questions please call us at [phone] or [phone] or [phone] or [phone]
--- NOTE | 2024-09-15 14:19 | Anesthesiology Consultation ---
Date of Service September 15, 2024 Assessment & Plan (1) Encounter for pre-operative examination: - check BSG am DOS. - semaglutide instructions: Patient informed at PAT visit to stop 7 days prior to surgery-voiced understanding. Patient advised to check with prescriber to see if alternative diabetic management changes recommended while holding semaglutide-if so, patient to call back to PAT to update chart and discuss if any further preop medication instructions needed. - Outpatient joint assessment: Patient is currently scheduled for inpatient pathway. If re-evaluated and patient/surgeon requests outpatient pathway, patient is not ideal candidate for outpatient joint program from anesthesia standpoint. Chart Review Chart Review: Acceptable Risk for Surgery and Patient seen in Pre Admission Testing Teaching & Discussion Pre-Anesthesia Teaching/Discussion Notes: Instructed NPO after midnight before surgery, except medications with 15 cc of water. Medication instructions provided according to the [facility] guidelines. History Surgery Operation Date: 10/11/24 07:00 Proposed Procedures p Right Reverse Total Shoulder Arthroplasty - James Maher, Height/Weight Height: 5 ft 3 in Weight: 82.7 kg Allergies Allergy/AdvReac Type Severity Reaction Status Date / Time gentamicin Allergy Intermediate Hives, Rash Verified 09/13/24 09:01 latex Allergy Intermediate Swelling Verified 09/13/24 09:01 of Eyes morphine Allergy Unknown Rash, Verified 09/13/24 09:01 Shaking, Diaphoretic Medications Home Medications Medication Instructions Recorded Confirmed Last Taken albuterol sulfate 90 mcg/actuation 2 puff inhalation Q4 PRN Shortness 06/30/20 09/13/24 Unknown aerosol inhaler (Ventolin HFA) Of Breath Or Wheezing cyanocobalamin (vitamin B-12) 1,000 mcg IM .EVERY 3 MONTHS PRN 06/30/20 09/13/24 Unknown 1,000 mcg/mL injection solution Depending on Lab Results hydromorphone 4 mg tablet 4 mg PO Q6H PRN Pain 06/30/20 09/13/24 Unknown (Dilaudid) lisinopril 20 mg tablet 20 mg PO QAM 06/30/20 09/13/24 Unknown multivitamin-calcium carb chewable 1 tab PO QAM 06/30/20 09/13/24 Unknown tablet (Flintstones Plus Calcium chewable tablet) promethazine 6.25 mg/5 mL oral 25 mg PO .Q4-6HRS PRN Nausea And 06/30/20 09/13/24 Unknown syrup Vomiting estradiol 0.01% (0.1 mg/gram) 1 g vaginal DAILY #42.5 grams 01/28/24 09/13/24 Unknown vaginal cream bupropion HCl 300 mg 24 hr tablet, 300 mg PO QAM 06/23/24 09/13/24 Unknown extended release (Wellbutrin XL) fluconazole 150 mg tablet 150 mg PO Q3D PRN yeast infection 06/23/24 09/13/24 Unknown semaglutide 2 mg/dose (8 mg/3 mL) 2 mg subcut WK 06/23/24 09/13/24 09/13/24 subcutaneous pen injector (Ozempic) esomeprazole magnesium 20 mg 20 mg PO QAM 09/13/24 09/13/24 Unknown capsule,delayed release (Nexium) Past Medical History Medical History (Updated 09/15/24 @ 14:47 by Melba Brown PA-C) Anemia has received iron infusions in the past-last infusion over one year ago Asthma controlled, stable per pt; albuterol inhaler use 4-5 times per week on average-denies change or worsening Depression with anxiety GERD (gastroesophageal reflux disease) controlled, stable per pt Hx of pulmonary embolus (~2014) states was not present on subsequent imaging after admission-denies anticoagulation Hypertension controlled, stable per pt Migraine denies recent migraine PONV (postoperative nausea and vomiting) denies needing scop patch Patient denies h/o stroke, seizures, heart attack, heart failure, DM, or blood transfusions. Exercise / Class Metabolic Activity II 4-5 Yardwork/Stairs/Walk up hill (denies chest discomfort or shortness of breath with one flight of stairs) Past Surgical History Surgical History History of ankle surgery 17-20 surgeries on left ankle History of x 4 History of cholecystectomy History of gastric bypass with hernia repair Past Anesthesia History No Hx of Anesthesia Complications and No Family Hx of Anesthesia Complications History of PONV No Hx of Motion Sickness and History of PONV (denies needing scop patch) Social History Smoking Status: Never smoker Do You Dip or Chew Tobacco: No Hx Alcohol Use: No Hx Substance Use: No substance use type: does not use Review of Systems Patient denies chest pain, shortness of breath, dyspnea on exertion, snoring, witnessed apneas, fever, chills, cough, wheezing, or palpitations. Physical Exam Vital Signs Vitals BP 121/82 P 80 TEMP 98.6 SP02 98% on RA RESP 18 Physical Patient resting comfortably in chair in no acute distress, alert and oriented, responding appropriately throughout visit Full cervical extension range of motion without pain TMD 3.5 finger breadths Mallampati Score 2 Dentition: several chipped teeth, bridge, denies chipped or loose teeth, caps/crowns, or implants Lungs: normal respiratory effort. Good air movement, clear throughout to auscultation, no adventitious breath sounds Cardiac: regular rate and rhythm, no murmurs noted Carotid arteries: negative bruit bilat Lab Results Anesthesia Preop Results Results Anesthesia Widget: WBC 4.96 K/ul (4.8-10.8) 09/15/24 Hgb 11.5 g/dl (12.0-16.0) L 09/15/24 Hct 37.2 % (37.0-47.0) 09/15/24 Plt 273 K/uL (130-400) 09/15/24 Na 138 mmol/L (136-145) 08/20/24 K 4.6 mmol/L (3.5-5.1) 08/20/24 Cl 102 mmol/L (98-107) 08/20/24 CO2 31 mmol/L (21-32) 08/20/24 BUN 17 mg/dl (6-23) 08/20/24 Creat 0.60 mg/dl (0.6-1.2) 08/20/24 Glucose Level 89 mg/dl (70-99(Fasting)) 08/20/24 PT 10.8 Seconds (9.0-12.0) 09/15/24 PTT 29 Seconds (21-31) 09/15/24 INR 1.0 (0.9-1.1) 09/15/24 HA1c 5.5 % (4.5-5.6) 08/20/24 Blood Type O Negative 09/15/24 Antibody Screen NEGATIVE 09/15/24 Testing Electrocardiogram Date: 09/15/24 NSR, rate 79 bpm Chest X-Ray Date: 09/17/24 No acute cardiopulmonary process.
[~2024-10-11 09:55] MED LIST changes: +BUPIVACAINE 0.5 % 5 MG/1 ML PF 10ML VIAL ONE; -CYAN3INJ IM; -IMT50 PO; -LSN20 PO; -NXM/40 PO; -PEDICHW50 PO; -PROM1SYP PO; +SODIUM CHLORIDE 0.9% PF INJ 10 ML VIAL ONE; -VNTHFA/IN INH
[2024-10-11] MEDS: GABAPENTIN 600 MG DOSE PO SCH (10:40)
[2024-10-11] MEDS: dexAMETHasone**PF** 10 MG/ML VIAL IV SCH (10:40)
[2024-10-11] MEDS: LR 15ML/HR IV SCH (10:41)
[2024-10-11] MEDS: LR 60ML/HR IV SCH (10:41)
[2024-10-11] MEDS: ACETAMINOPHEN 500 MG TAB PO SCH ×2 (10:41→21:28)
[2024-10-11] MEDS: FAMOTIDINE 20 MG TAB PO SCH (10:41)
[2024-10-11] MEDS ORDERED: MIDAZOLAM HCL 1 MG/ML 2ML VIAL ONE ×2 (11:03)
[2024-10-11] MEDS ORDERED: LIDOCAINE 2% 2 ML VIAL/AMP(20MG/ML) INFIL ONE (11:03)
[2024-10-11] MEDS ORDERED: DEXAMETHASONE SOD INJ 4 MG/ML VIAL ONE (11:03)
[2024-10-11] MEDS ORDERED: fentaNYL citrate PF 100 MCG/2 ML VIAL ONE (11:03)
[2024-10-11] MEDS ORDERED: DROPERIDOL 5 MG/2 ML VIAL ONE (11:03)
[2024-10-11] MEDS ORDERED: ONDANSETRON INJ 2 MG/ML 2 ML VIAL ONE (11:03)
[2024-10-11] MEDS ORDERED: PROPOFOL IV EMULSION 10 MG/ML 20 ML VIAL IV ONE ×2 (11:03→12:57)
[2024-10-11] MEDS: SODIUM CHLORIDE 0.9% 1,000 ML IV SCH (11:04)
--- NOTE | 2024-10-11 11:24 | History & Physical Bridge Note ---
Date of Service October 11, 2024 History & Physical Bridge Note I have examined the patient, reviewed the History & Physical and in the interval since the performance of the History & Physical I have noted the following changes of clinical significance: no changes noted
[2024-10-11] MEDS ORDERED: ONDANSETRON INJ 2 MG/ML 2 ML VIAL IV PRN ×2 (12:23→14:01)
[2024-10-11] MEDS ORDERED: PROMETHAZINE HCL 6.25 MG in SODIUM CHLORIDE 0.9% 50 ML IV PRN (12:23)
[2024-10-11] MEDS ORDERED: KETOROLAC 30 MG/ML VIAL IV PRN (12:23)
[2024-10-11] MEDS ORDERED: ATROPINE SULFATE 0.1 MG/ML 10ML SYR IV PRN (12:23)
[2024-10-11] MEDS: TRANEXAMIC ACID 1,000 MG **IV Pre-op IV SCH (12:34)
[2024-10-11] MEDS: ceFAZolin 2000MG 2,000 MG/15 ML SYR IV SCH ×2 (12:43→20:22)
[2024-10-11] MEDS: TRANEXAMIC ACID 1,000 MG **IV Intra-op IV SCH (13:37)
[2024-10-11] MEDS: ROPIV 0.5% 246mg, Ketorolac 30mg, EPINEPHrine 0.5mg in NSS INFIL SCH (13:39)
[2024-10-11] MEDS: ORTHO JOINT ANESTHETIC ONE (13:40)
--- NOTE | 2024-10-11 13:40 | Operative Report ---
PG Post Operative Report Pre & Post Diagnosis Operation Date: 10/11/24 12:00 Preoperative diagnosis: Cuff tear arthropathy of the right shoulder Postop diagnosis: Cuff tear arthropathy of the right shoulder I identified the patient and participated in the time-out.: Yes Procedure Operation Date: 10/11/24 12:00 Procedure: Right reverse shoulder arthroplasty Surgeon James Maher DO Development Professional Matilde Babcock PA-C Estimated Blood Loss 200 Findings Consistent with Post-Op Diagnosis Specimens Right humeral head Description of Procedure Implants used: I used a [employer]omet Comprehensive reverse total shoulder arthroplasty system with a size 8 press fit micro humeral stem, a +6 offset humeral tray and a standard humeral bearing, a 25 mm baseplate with a 6.5 mm central screw and superior and inferior locking screws, and a size 36 mm eccentric glenosphere. Cami arrived at [facility] for the above procedure. She was seen in the preoperative holding area and the operative extremity was identified and signed. She was given a preoperative antibiotic, TXA, and an interscalene nerve block. She was taken back to the operating room, laid on table in supine position, and put under general anesthesia. She was then put into the beachchair position. The shoulder was then prepped and draped in sterile fashion. A timeout was done and the patient and the operative extremity was properly identified. A deltopectoral approach was used. Dissection was taken down through the fascia and the deltoid was retracted laterally and the conjoined tendon was retracted medially. The anterior shoulder was exposed. The biceps tendon was traumatically tenotomized. The subscapularis was then directly released off the lesser tuberosity with a peel technique. The inferior capsule was released and the humeral head was dislocated. A canal finding reamer was sent down the center of the humeral canal. Sequential reaming up to a size 8 reamer was done. Off that reamer, a proximal humeral resection guide was placed. The proximal humerus was resected at 135 of inclination and 25 of retroversion. Osteophytes were then removed and the glenoid was exposed. Time was spent doing a complete capsular and labral release. The glenoid guide was then placed in the inferior aspect of the glenoid. A 3.2 mm Steinmann pin was then placed into the glenoid vault at 10 of inclination. The glenoid baseplate was then reamed. The final size 25 mm baseplate was then impacted in the place. A 6.5 mm central screw was then placed followed by alves perior and inferior locking screws. A 36 mm eccentric glenosphere was then impacted into place. Surrounding soft tissues were then injected with 100 cc an orthopedic pain control cocktail. The proximal humerus was then exposed. Sequential broaching of the humerus up to a size 8 broach was done. Off that broach a +6 offset humeral tray was trialed. The shoulder was then reduced, brought through a full range of motion, and felt to be stable. The shoulder was then dislocated and the broach was removed. The final size 8 micro press-fit humeral stem was then impacted into place. A standard humeral bearing was then snapped onto a +6 offset humeral tray. The humeral tray was then impacted onto the humeral stem. The shoulder was once again reduced, brought through a full range of motion, and felt to be stable. The subscapularis was poor quality and unable to be repaired. A dilute betadyne lavage was then done for 3 minutes. The joint was then irrigated with normal saline solution. Hemostasis was obtained. The interval was closed with 2-0 Vicryl suture. The skin was then closed with 2-0 Vicryl and derik. A Silverlon dressing was placed and the arm was rested in a regular arm sling. She was then extubated and transferred to a hospital bed. She taken to the postanesthesia care unit in stable condition. She tolerated the procedure well. Matilde Babcock PA-C, was present for the entire procedure. He was critical for patient positioning, prepping, draping, retraction exposure, wound closure and application of sterile dressing. I attest to the content of the Intraoperative Record and any orders documented therein. Any exceptions are noted below.
[2024-10-11] MEDS ORDERED: MAGNESIUM HYDROXIDE SUSP 30 ML UDC PO PRN (14:01)
[2024-10-11] MEDS ORDERED: NALOXONE HCL 0.4 MG/1 ML VIAL/CARP IV PRN (14:01)
[2024-10-11] MEDS ORDERED: METOCLOPRAMIDE HCL INJ 5 MG/ML 2 ML VIAL IV PRN (14:01)
[2024-10-11] MEDS ORDERED: bisacodyL 10 MG SUPP PR PRN (14:01)
[2024-10-11] MEDS ORDERED: diphenhydrAMINE Capsule 25 MG CAP PO PRN (14:01)
[2024-10-11] MEDS ORDERED: CYANOCOBALAMIN 1000 MCG/ML VIAL IM PRN (14:05)
[2024-10-11] MEDS ORDERED: ALBUTEROL HFA 8 GM INHALER INH PRN (14:05)
[2024-10-11] MEDS ORDERED: PROMETHAZINE HCL 12.5 MG/10 ML UDP PO PRN (14:05)
[2024-10-11] MEDS: fentaNYL citrate PF 100 MCG/2 ML VIAL IV PRN (14:30)
--- NOTE | 2024-10-11 14:52 | Anesthesiology Progress Note ---
Date of Service October 11, 2024 Anesthesia Post Procedure Vital Signs Vital Signs: Temp Pulse Pulse Resp BP Pulse Ox O2 Del Method 10/11/24 14:35 79 14 120/65 100 Nasal Cannula 10/11/24 14:25 80 17 117/66 93 Nasal Cannula 10/11/24 14:15 82 28 H 124/58 L 98 Oxymask 10/11/24 14:05 36.7 C 82 18 121/76 100 Oxymask 10/11/24 10:34 36.7 C 91 H 20 120/76 96 Room Air O2 Flow Rate 10/11/24 14:35 2 10/11/24 14:25 2 10/11/24 14:15 4 10/11/24 14:05 6 10/11/24 10:34 Pain Intensity Right Shoulder: Pain Intensity: 5 Transfer of Care Handoff Completed per policy Notes Mental Status: alert / awake / arousable Patient Amnestic to Procedure: Yes Nausea / Vomiting: adequately controlled Pain: adequately controlled Airway Patency, RR, SpO2: stable & adequate BP & HR: stable & adequate Hydration State: stable & adequate Anesthetic Complications: no major complications apparent
--- NOTE | 2024-10-11 15:09 | XRay Report ---
XR shoulder RT min 2V routine HISTORY: 59 years-old Female Post shoulder surgery right shoulder arthroplasty COMPARISON: Chest radiograph 09/17/2024 TECHNIQUE: 2 views of the right shoulder FINDINGS: Reverse right shoulder arthroplasty with overlying skin derik, expected postoperative soft tissue s welling with deep tissue air. No acute fracture, dislocation or opaque foreign body. Mild right basil ar atelectasis. IMPRESSION: Satisfactory alignment of the right shoulder arthroplasty. ACT 112: Negative or not required by law. The above report was generated using voice recognition software. It may contain grammatical, syntax o r spelling errors. Electronically signed by: Smooth Jimenez M.D. 10/11/2024 3:08 PM
[2024-10-11] MEDS: KETOROLAC TROMETHAMINE 15 MG/ML VIAL IV SCH (17:29)
[2024-10-11] MEDS: DOCUSATE SODIUM 100 MG CAP PO SCH (20:22)
[2024-10-11] MEDS: SENNA 8.6 MG TAB PO SCH (20:22)
[2024-10-11] MEDS: HYDROmorphone INJ 0.5 MG/0.5 ML SYR IV PRN (21:29)
--- NOTE | 2024-10-12 06:42 | Orthopedic Progress Note ---
Date of Service October 12, 2024 Assessment & Plan (1) Status post reverse total replacement of left shoulder: Overall she is doing fairly well. She is having a little bit of pain in the right shoulder but is controlled.. She will be seen by physical therapy today for ambulation and range of motion exercises. She can be discharged to home later today. She will follow-up with orthopedics in 2 weeks. She has a pain management contract and will use the narcotics that she has from her pain management physician. Ely Almanza was seen and examined at bedside this morning. Overall she is doing fairly well. She has a little bit of pain in her right shoulder but is currently controlled. She is wearing her sling as instructed. She has no complaints.. Review of Systems All systems reviewed & are unremarkable except as noted in HPI & below. Physical Exam On physical exam of the right shoulder, the dressing is clean and dry. She is wearing her sling as instructed. She has some motion of her hand and her wrist but the nerve block is still in effect. Results & Data Results & Data Laboratory Results . Diagnostic Findings Postoperative x-rays of the right shoulder show the prosthesis to be in anatomic alignment without any evidence of fracture, dislocation, or loosening.. PG Care Time/CCT Total # of Minutes Spent Total Time Spent with Patient: Total time spent is greater than 50% in coordination of care (as documented) at patient's floor/unit and/or counseling patient: Coding Level of Care Code 31105 Post Operative Follow-Up Diagnoses Status post reverse total replacement of left shoulder Z96.612
--- NOTE | 2024-10-12 06:44 | Discharge Summary ---
Date of Service October 12, 2024 Principal Diagnosis Same as "Discharge Diagnosis" noted below under Discharge Instructions. Discharge Exam On physical exam of the right shoulder, the dressing is clean and dry. She is wearing her sling as instructed. She has some motion of her hand and her wrist but the nerve block is still in effect. Discharge Data Procedures Performed Operation Date: 10/11/24 12:00 Actual Procedures p Right Reverse Total Shoulder Arthroplasty(Right) - James Maher DO Ordered Studies 10/11/24 05:00 US - OR guided needle placemen Routine Hospital Course (1) Status post reverse total replacement of left shoulder: On October 11, 2024 Cami arrived at [facility] and underwent a left reverse shoulder replacement without complication. She had a general anesthetic and a left interscalene nerve block. Postoperatively she was placed in a sling and transferred to the general orthopedic floors. Her hospital course was uneventful. On postop day #1, her vital signs were stable and her pain was well-controlled. She was able to participate well with physical therapy doing ambulation and range of motion exercises. She was then discharged to home. She will follow-up with orthopedics in 2 weeks. PG Care Time/CCT Total # of Minutes Spent Total Time Spent with Patient: Total time spent is greater than 50% in coordination of care (as documented) at patient's floor/unit and/or counseling patient: Discharge Plan Discharge Items Patient Disposition: Home - Self-Care Reason For Visit: POST OP CARE, S/P RIGHT REVERSE SHOULDER ARTHRO Discharge Diagnosis: Left reverse shoulder replacement Activity: As commented below Non-emergency contact: Surgeon Call non-emergency contact if: your wound has increased redness and your wound has increased drainage Follow-up/Referrals: James Mixon [Primary Care Provider] - Diet: Regular Addtl Attending Provider Instructions: Activity and Therapy Recommendations: * If you are using [facility] then therapy will be provided at your home until they feel you have accomplished all of your goals. * If you are using [facility] then Physical Therapy will be provided until they feel you are ready to start Outpatient Physical Therapy. * If you are not using home therapy then Outpatient Physical Therapy should start about 3-5 days from your day of surgery. Therapy will last about 8-12 weeks * Wear your sling for 3 weeks, unless otherwise instructed. You may remove your sling to shower and to dress, but otherwise, you should be in your sling at all times, including while sleeping * The shoulder replacement is very stable and you can use your hand while in the sling * You were shown a series of exercises in the hospital. Do these exercises daily including the exercises you were shown in physical therapy. Medications: * Continue taking your home narcotics. * Cefadroxil -take the antibiotic twice a day for 10 days to help prevent infection. * Other medications may be prescribed for specific circumstances. If you have any questions, please call the office at . * Resume previous home medications unless otherwise instructed Dressing Care: Leave the Silverlon dressing in place for 7 days. After 7 days you may remove the dressing. If the incision is not draining then you may leave the derik open to air. If there is a little bit of drainage or if the derik are getting stuck on your clothing then cover the incision with a dry dressing. The derik will be removed at your 2 week follow-up appointment. Showering: You may shower with the Silverlon dressing in place. Do not let the shower spray hit the dressing directly. Pat the Silverlon dressing dry. If the dressing becomes wet underneath, then simply remove the dressing. Keep the incision dry until you are 7 days out from the day of surgery. After 7 days you may remove the Silverlon dressing and shower with the derik exposed. Let soapy water run over the derik and pat them dry. Do not scrub or soak the incision. Diet: You may resume your previous diet. Things To Watch For: * Drainage from the incision site that occurs more than one week after your surgery. * Increased redness at the incision site. * Fever above 102 degrees Fahrenheit. * Unusual chest pain or shortness of breath. * Call [facility] at with any of the above problems Follow-Up Visit: Follow-up with Dr. Maher's office 2-3 weeks after your day of surgery. We will remove your derik and answer any questions. If you have any additional questions or concerns, Dr Maher is usually in the office at the same time and will be available An appointment was probably scheduled when you signed-up for surgery in the office. If you have any questions call More detailed instructions as well as Frequently Asked Questions were provided in a folder by our office when you signed-up for surgery. Please review these instructions when you get home. If you have any further questions or concerns, please feel free to call the office at [phone] Pending Studies at Discharge: No Stand-Alone Forms: My [facility], Smoking Cessation Medications and DC Order Prescriptions: New cefadroxil 500 mg capsule 500 mg PO BID 10 Days Qty: 20 0RF Continued estradiol 0.01 % (0.1 mg/gram) cream 1 g vaginal DAILY Qty: 42.5 4RF Rx Instructions: Use daily for 14 days, then 2-3 times per week thereafter. promethazine 6.25 mg/5 mL syrup 25 mg PO .Q4-6HRS PRN (Reason: Nausea And Vomiting) Rx Instructions: 20ml dose lisinopril 20 mg tablet 20 mg PO QAM cyanocobalamin (vitamin B-12) 1,000 mcg/mL solution 1,000 mcg IM .EVERY 3 MONTHS PRN (Reason: Depending on Lab Results) albuterol sulfate [Ventolin HFA] 90 mcg/actuation HFA aerosol inhaler 2 puff INHALATION Q4 PRN (Reason: Shortness Of Breath Or Wheezing) hydromorphone [Dilaudid] 4 mg tablet 4 mg PO Q6H PRN (Reason: Pain) Flintstones Plus Calcium Tablet,Chewable 1 tab PO QAM bupropion HCl [Wellbutrin XL] 300 mg tablet extended release 24 hr 300 mg PO QAM Ozempic 2 mg/dose (8 mg/3 mL) Pen Injector 2 mg SUBCUT WK Rx Instructions: Friday fluconazole 150 mg tablet 150 mg PO Q3D PRN (Reason: yeast infection) Rx Instructions: Take tablet today, then repeat in 3 days. esomeprazole magnesium [Nexium] 20 mg Capsule,Delayed Release(Dr/Ec) 20 mg PO QAM Discharge Orders: Discharge Order (Routine); Ordered 10/12/24 Ordered By: James Maher Admission Data Admit Date/Time: 10/11/24 14:01 Attending Provider: James Maher Admit Provider: James Maher Primary Care Provider: James Mixon
[2024-10-12 07:12] VITALS: RESP 14
[2024-10-12] MEDS: dexAMETHasone 4 MG TAB PO SCH (07:16)
[2024-10-12] MEDS: lisinopril 20 MG TAB PO SCH (07:18)
[2024-10-12] MEDS: PANTOprazole 40 MG TAB PO SCH (07:18)
[2024-10-12] MEDS: MULTIVITAMIN TAB PO SCH (07:21)
[2024-10-12] MEDS ORDERED: [UNRECOGNIZED DRUG - OTHER] PO SCH (09:00)
[2024-10-12 11:39] VITALS: BP 116/63; PULSE 80; TEMP 98.4; O2SAT 94
== END 2024-10-12 13:21 | disposition home or self-care (01) ==
LOC: ASU 09:55 → 3E 09:55

== ENCOUNTER 2025-03-12 16:50 | Inpatient (IN) ==
--- NOTE | 2025-03-12 16:56 | Emergency Department Note ---
History of Present Illness General Chief complaint: Fall Stated complaint: LIGHT HEADED FELL ON ARM FELL TWICE Time Seen by Provider: 03/12/25 16:52 History of Present Illness This is a 59-year-old female that presents to the emergency department via private vehicle with complaints of "lightheaded, fell on arm". The patient notes that for the past 4 days she has felt dizzy described as a room spinning sensation/lightheaded. She notes that today around 10:30 AM she was ambulating and fell landing on the right arm. She notes right arm pain since that time and points to the distal right bicep/elbow region. She states that the "off balance" sensation has been for the past 4 days. She feels overall weak but not on 1 side or the other. No fevers, chills, nausea or vomiting. No chest pain or shortness of breath. No speech trouble. She notes that following the fall today at 10:30 AM, she fell again at 3:45 AM secondary to the dizziness. She does not believe she struck her head. She does not believe that she lost consciousness or syncopized. No preceding or current illness. No fevers. Home Medications Medication Instructions Recorded Confirmed Type albuterol sulfate 90 mcg/actuation 2 puff inhalation Q4 PRN Shortness 06/30/20 03/12/25 History aerosol inhaler (Ventolin HFA) Of Breath Or Wheezing cyanocobalamin (vitamin B-12) 1,000 mcg IM WK Depending on Lab 06/30/20 03/12/25 History 1,000 mcg/mL injection solution Results (Dodex) hydromorphone 4 mg tablet 4 mg PO Q6H PRN Pain 06/30/20 03/12/25 History (Dilaudid) lisinopril 20 mg tablet (Zestril) 10 mg PO QAM 06/30/20 03/12/25 History promethazine 6.25 mg/5 mL oral 25 mg PO .Q4-6HRS PRN Nausea And 06/30/20 03/12/25 History syrup Vomiting bupropion HCl 300 mg 24 hr tablet, 300 mg PO QAM 06/23/24 03/12/25 History extended release (Wellbutrin XL) esomeprazole magnesium 20 mg 20 mg PO QAM 09/13/24 03/12/25 History capsule,delayed release (Nexium) cyclobenzaprine 10 mg tablet 10 mg PO TID PRN muscle spasm #20 02/16/25 03/12/25 Rx tabs amoxicillin 500 mg tablet 2,000 mg PO DIRECTED PRN 1 HR 03/12/25 03/12/25 History PRIOR TO DENTAL PROCEDURES conjugated estrogens 0.625 mg/gram 0.625 mg vaginal .[id number] 03/12/25 03/12/25 History vaginal cream (Premarin) Allergies Allergy/AdvReac Type Severity Reaction Status Date / Time gentamicin Allergy Intermediate Hives, Rash Verified 03/12/25 17:35 latex Allergy Intermediate Swelling Verified 03/12/25 17:35 of Eyes morphine Allergy Intermediate Rash, Verified 03/12/25 17:35 Shaking, Diaphoretic Past Med/Surg History Problem List (Updated 03/13/25 @ 01:28 by Madhu Genao PA-C) Arm pain, right (Acute) Dizziness (Acute) Fall (Acute) Status post reverse total replacement of left shoulder (~10/2024) Dyspareunia in female Migraine headache (Chronic) Hypertension (Chronic) GERD (gastroesophageal reflux disease) (Chronic) Retained orthopedic hardware (Acute) Medical History PONV (postoperative nausea and vomiting) denies needing scop patch Anemia has received iron infusions in the past-last infusion over one year ago Depression with anxiety Hx of pulmonary embolus (~2014) states was not present on subsequent imaging after admission-denies anticoagulation Migraine denies recent migraine Hypertension controlled, stable per pt GERD (gastroesophageal reflux disease) controlled, stable per pt Asthma controlled, stable per pt; albuterol inhaler use 4-5 times per week on average-denies change or worsening Surgical History History of gastric bypass with hernia repair History of cholecystectomy History of x 4 History of ankle surgery 17-20 surgeries on left ankle Family History (Updated 03/12/25 @ 20:58 by Mau Combs MD, PhD) Father , at 75 years of age from lung CA in the setting of tobacco abuse. No problems noted. Mother , at 73 years of age from acute CVA, in the setting of lung CA with concomitant tobacco abuse, but no DM. No problems noted. 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: No Beliefs That Will Affect Care: None Current Living Situation: Spouse Feels Safe at Home: Yes Assistive Devices: Glasses Review of Systems A total of 10 systems reviewed and were otherwise negative Physical Exam Vital Signs Vital Signs - 24 hr 03/12/25 16:58 03/12/25 17:20 03/12/25 17:34 Temperature 36.4 C L Temperature Source Temporal Artery Scan Pulse Rate 96 H 90 Pulse Rate from SpO2 Sensor Respiratory Rate 18 20 20 Blood Pressure 139/80 Blood Pressure [Left Arm] 114/87 Blood Pressure Mean 99 Blood Pressure Mean [Left Arm] 96 Pulse Oximetry 98 92 96 Oxygen Delivery Method Room Air Room Air Sepsis Recent Fever Within 48 Hours No Sepsis New/Unexplained Change in Mental Status No Sepsis Action Taken by Nursing No Action Required 03/12/25 17:42 03/12/25 17:43 03/12/25 18:06 Temperature Temperature Source Pulse Rate 93 H 93 H Pulse Rate from SpO2 Sensor 87 Respiratory Rate 30 H 21 Blood Pressure Blood Pressure [Left Arm] Blood Pressure Mean Blood Pressure Mean [Left Arm] Pulse Oximetry 95 Oxygen Delivery Method Sepsis Recent Fever Within 48 Hours Sepsis New/Unexplained Change in Mental Status Sepsis Action Taken by Nursing 03/12/25 18:15 03/12/25 18:30 03/12/25 18:33 Temperature Temperature Source Pulse Rate 91 H 98 H Pulse Rate from SpO2 Sensor Respiratory Rate 18 23 Blood Pressure 146/90 H Blood Pressure [Left Arm] Blood Pressure Mean 98 Blood Pressure Mean [Left Arm] Pulse Oximetry Oxygen Delivery Method Sepsis Recent Fever Within 48 Hours Sepsis New/Unexplained Change in Mental Status Sepsis Action Taken by Nursing 03/12/25 18:45 03/12/25 18:51 03/12/25 19:00 Temperature Temperature Source Pulse Rate 100 H 103 H 96 H Pulse Rate from SpO2 Sensor 91 H 89 95 H Respiratory Rate 29 H 19 17 Blood Pressure Blood Pressure [Left Arm] Blood Pressure Mean Blood Pressure Mean [Left Arm] Pulse Oximetry 97 96 97 Oxygen Delivery Method Sepsis Recent Fever Within 48 Hours Sepsis New/Unexplained Change in Mental Status Sepsis Action Taken by Nursing VITAL SIGNS - Vital signs and nursing notes were reviewed. Stable and afebrile. GENERAL -59-year-old female appearing her stated age who is in no acute distress. Communicates well with provider and answers questions appropriately. SKIN - Without rashes. Ecchymosis to the right upper extremity noted. HEAD - NC/AT. EYES - PERRL with EOMI bilaterally. Sclera anicteric. Palpebral conjunctiva pink and moist with no injection noted. EARS - No deformities of external structures noted on gross examination bilaterally. No pain elicited with palpation of the tragus bilaterally. External auditory canals without discharge or otorrhea. Tympanic membranes pearly putnam without retraction or bulging. No fluid or purulent material visualized behind the TM. Handle of malleus, umbo, cone of light, pars tensa/flaccid all easily visualized. NOSE - Midline and without cyanosis. No epistaxis or purulent drainage noted. Septum midline without deviation or septal hematoma noted. MOUTH/OROPHARYNX - Without perioral cyanosis. Buccal mucosa pink and moist and without leukoplakia. Tongue midline with equal elevation of palate bilaterally. No tonsillar hypertrophy, erythema, or exudates noted. Fair dentition noted. NECK - Neck with FROM. Supple to palpation. No lymphadenopathy noted. No nuchal rigidity. LUNGS - Chest wall symmetric without accessory muscle use, intercostals retractions, or central cyanosis. Normal vesicular breath sounds CTA B/L. No wheezes, rales, or rhonchi appreciated. CARDIAC - RRR with S1/S2. No murmur, rubs, or gallops appreciated. ABDOMEN - Abdominal contour normal without pulsations or visible masses. BS normoactive all four quadrants. No tenderness, palpable masses, hepatosplenomegaly, or ascites noted. EXTREMITIES - No clubbing or peripheral cyanosis. +5/5 strength noted in UE/LE bilaterally. Right upper extremity tender throughout the distal bicep/distal humerus tracking to the right elbow. Remainder of the extremities are nontender. Extremities are appropriately warm and well-perfused. Bilateral radial pulses within normal limits. NEUROLOGIC - Cranial nerves II through XII grossly intact. Sensory intact to light touch throughout. Negative finger-nose. Negative drift. PSYCH -alert, oriented and pleasant on exam. Course Administered Medications Famotidine (Famotidine 40 Mg Tablet) [facility] [place] Stop: 04/11/25 19:59 Last Admin: 03/12/25 20:28 Dose: 40 mg Documented By: JOSE Hydromorphone HCl (Hydromorphone Inj 0.5 Mg/0.5 Ml Syr) 0.5 mg IV Q4H PRN PRN Reason: Pain Stop: 03/26/25 22:32 Last Admin: 03/13/25 00:18 Dose: 0.5 mg Documented By: CHERELLE Discontinued Medications Hydromorphone HCl (Hydromorphone Inj 0.5 Mg/0.5 Ml Syr) 0.25 mg IV NOW STA Stop: 03/12/25 17:30 Last Admin: 03/12/25 17:38 Dose: 0.25 mg Documented By: JOSE Hydromorphone HCl (Hydromorphone Inj 0.5 Mg/0.5 Ml Syr) 0.25 mg IV NOW STA Stop: 03/12/25 18:28 Last Admin: 03/12/25 18:30 Dose: 0.25 mg Documented By: JOSE Hydromorphone HCl (Hydromorphone Hcl 4 Mg Tab) 4 mg PO Q2H PRN PRN Reason: pain scale 6 to 10 Stop: 03/26/25 19:59 Last Admin: 03/12/25 22:04 Dose: 4 mg Documented By: CHERELLE Sodium Chloride (Nss) 1,000 mls @ 500 mls/hr IV .Q2H ONE Stop: 03/12/25 20:21 Last Infusion: 03/12/25 22:06 Dose: Infused Documented By: Admin: 03/12/25 18:30 Dose: 500 mls/hr Documented By: JOSE Ioversol (Optiray 320 125ml) 119 ml IV ONCE ONE Stop: 03/12/25 18:00 Last Admin: 03/12/25 17:59 Dose: 119 ml Documented By: BELLE Ondansetron HCl (Ondansetron Inj 2 Mg/Ml 2 Ml Vial) 4 mg IV NOW STA Stop: 03/12/25 17:30 Last Admin: 03/12/25 17:38 Dose: 4 mg Documented By: JOSE Medical Decision Making Laboratory Data 03/12/25 17:31 03/12/25 17:31 Lab Results 03/12/25 03/12/25 Range/Units 17:31 17:41 WBC 4.31 L (4.8-10.8) K/ul RBC 5.33 (4.20-5.40) M/uL Hgb 11.8 L (12.0-16.0) g/dl POC Hgb 13.6 (12.0-16.0) g/dl Hct 38.1 (37.0-47.0) % POC Hct 40 (37-47) % MCV 71.5 L (80.0-100.0) fL MCH 22.1 L (25.0-34.0) pg MCHC 31.0 L (32.0-36.0) g/dL RDW Std Deviation 45.4 (36.4-46.3) fL RDW Coeff of Jaymie 18.9 H (11.5-14.5) % Plt Count 278 (130-400) K/uL MPV 9.1 L (9.4-12.4) fL Immature Gran % (Auto) 0.2 % Neut % (Auto) 70.6 % Lymph % (Auto) 16.9 % [place] % (Auto) 10.2 % Eos % (Auto) 1.2 % Baso % (Auto) 0.9 % Neut # (Auto) 3.04 (1.40-6.50) K/uL Lymph # (Auto) 0.73 L (1.20-3.40) K/uL [place] # (Auto) 0.44 (0.11-0.59) K/uL Eos # (Auto) 0.05 (0.00-0.50) K/uL Baso # (Auto) 0.04 (0.00-0.20) K/uL Immature Gran # (Auto) 0.01 (0.01-0.20) K/uL PT 10.9 (9.0-12.0) Seconds INR 1.0 (0.9-1.1) APTT 31 (21-31) Seconds PTT Ratio 1.2 POC Sodium 141 (135-144) mmol/L Sodium 142 (136-145) mmol/L POC Potassium 3.9 (3.3-5.0) mmol/L Potassium 3.9 (3.5-5.1) mmol/L POC Chloride 104 (101-112) mmol/L Chloride 106 (98-107) mmol/L Carbon Dioxide 28 (21-32) mmol/L POC Total CO2 24 (24-31) mmol/L Anion Gap 8 (3-11) POC Anion Gap 19.0 (16-25) mmol/L POC BUN 9 (7-18) mg/dl BUN 10 (6-23) mg/dl Creatinine 0.52 L (0.6-1.2) mg/dl POC Creatinine 0.6 (0.6-1.3) mg/dl Est Cr Clr Drug Dosing 116.7 ml/min eGFR 107.63 BUN/Creatinine Ratio 19.2 (10-20) Glucose 98 (70-99(Fasting)) mg/dl POC Glucose (other) 99 (70-99) mg/dl Calcium 9.8 (8.6-10.3) mg/dl POC Ioniz Calcium Chris 1.26 (1.12-1.32) mmol/l Magnesium 1.9 (1.7-2.4) mg/dl Total Bilirubin 0.5 (0.2-1.0) mg/dl AST 20 (13-39) U/L ALT 21 (7-52) U/L Alkaline Phosphatase 112 H (34-104) U/L Troponin I High Sens 5.4 (0-14) pg/ml Total Protein 7.2 (6.0-8.3) gm/dl Albumin 4.1 (3.4-5.0) gm/dl Globulin 3.1 (2.5-4.0) gm/dl Albumin/Globulin Ratio 1.3 (0.9-2) TSH 1.086 (0.300-4.500) uIu/ml Lyme Disease Screen Negative (Negative) Imaging Data Radiologist's Impression: Chest X-Ray 03/12/25 17:19 EXAM: Radiograph of the Chest 1 View INDICATION: Trauma TECHNIQUE: Frontal view of the chest. COMPARISON: No relevant prior studies available. FINDINGS: Lungs and pleural spaces: No consolidation or pulmonary edema. No pleural effusion or pneumothorax. Heart: Shape and configuration within normal limits allowing for technique. Mediastinum: Small sliding hiatal hernia noted. Bones/joints: Visualized portion of right shoulder arthroplasty components well-seated and intact. No acute osseous abnormality. Rotator cuff thinning noted in the left shoulder. Soft tissues: No abnormality noted. No radiopaque foreign body noted. Vasculature: Mild ectatic aorta with minimal large calcification. Upper abdomen: No abnormality noted. IMPRESSION: No acute cardiopulmonary disease. ACT 112: N/A Electronically signed by Elizabeth Gamboa 03-12-2025 6:24 PM Head CTA 03/12/25 17:19 EXAM: CT Angiography Head and Neck With Intravenous Contrast INDICATION: Lightheadedness. Fell twice today. TECHNIQUE: [place]/head and neck CT angiography protocol performed with intravenous contrast. Sagittal and coronal reformatted images were created and reviewed. This CT exam was performed using one or more of the following dose reduction techniques: automated exposure control, adjustment of the mA and/or kV according to patient size, and/or use of iterative reconstruction technique. MIP reconstructed images were created and reviewed. CONTRAST: 119ml of Optiray 320 was administered intravenously. COMPARISON: None. FINDINGS: HEAD: Right anterior cerebral artery: No abnormality noted. No occlusion or significant stenosis. Anterior communicating artery is present. No aneurysm. Right middle cerebral artery: No abnormality noted. No occlusion or significant stenosis. No aneurysm. Right posterior cerebral artery: No abnormality noted. No occlusion or significant stenosis. No aneurysm. Right intracranial internal carotid artery: There is mild atherosclerotic plaque of the intracranial right internal carotid artery. No stenosis, aneurysm, occlusion or dissection. Right intracranial vertebral artery: No abnormality noted. No significant stenosis. No dissection or occlusion. Left anterior cerebral artery: No abnormality noted. No occlusion or significant stenosis. No aneurysm. Left middle cerebral artery: No abnormality noted. No occlusion or significant stenosis. No aneurysm. Left posterior cerebral artery: No abnormality noted. No occlusion or significant stenosis. No aneurysm. Left intracranial internal carotid artery: There is mild atherosclerosis of the intracranial left internal carotid artery. No stenosis, aneurysm, occlusion or dissection. There is mild atherosclerotic plaque of the intracranial left internal carotid artery. No stenosis, aneurysm, occlusion or dissection. Left intracranial vertebral artery: No abnormality noted. No significant stenosis. No dissection or occlusion. Basilar artery: No abnormality noted. No occlusion or significant stenosis. No aneurysm. Other vasculature: Patent dural venous sinuses. No vascular malformation. NECK: Right common carotid artery: No abnormality noted. No significant stenosis. No dissection or occlusion. Right extracranial internal carotid artery: No abnormality noted. No significant stenosis. No dissection or occlusion. Right external carotid artery: No abnormality noted. No occlusion. Right extracranial vertebral artery: No abnormality noted. No significant stenosis. No dissection or occlusion. Left common carotid artery: No abnormality noted. No significant stenosis. No dissection or occlusion. Left extracranial internal carotid artery: No abnormality noted. No significant stenosis. No dissection or occlusion. Left external carotid artery: No abnormality noted. No occlusion. Left extracranial vertebral artery: No abnormality noted. No significant stenosis. No dissection or occlusion. Brachiocephalic and subclavian arteries: There is mild calcific plaque at the origin of the left subclavian artery. No stenosis, dissection or aneurysm. Lung apices: No significant abnormality noted. HEAD and NECK: Bones/joints: No significant abnormality. Soft tissues: No abnormality noted. CAROTID STENOSIS REFERENCE USING NASCET CRITERIA: % ICA stenosis = (1 - narrowest ICA diameter/diameter of distal cervical ICA) x 100. Mild - <50% stenosis. Moderate - 50-69% stenosis. Severe - 70-94% stenosis. Near occlusion - 95-99% stenosis. Occluded - 100% stenosis. IMPRESSION: 1. No angiographic abnormality in the head or neck. 2. 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 ACT 112: N/A Electronically signed by Elizabeth Gamboa 03-12-2025 6:20 PM Neck CTA 03/12/25 17:19 EXAM: CT Angiography Head and Neck With Intravenous Contrast INDICATION: Lightheadedness. Fell twice today. TECHNIQUE: [place]/head and neck CT angiography protocol performed with intravenous contrast. Sagittal and coronal reformatted images were created and reviewed. This CT exam was performed using one or more of the following dose reduction techniques: automated exposure control, adjustment of the mA and/or kV according to patient size, and/or use of iterative reconstruction technique. MIP reconstructed images were created and reviewed. CONTRAST: 119ml of Optiray 320 was administered intravenously. COMPARISON: None. FINDINGS: HEAD: Right anterior cerebral artery: No abnormality noted. No occlusion or significant stenosis. Anterior communicating artery is present. No aneurysm. Right middle cerebral artery: No abnormality noted. No occlusion or significant stenosis. No aneurysm. Right posterior cerebral artery: No abnormality noted. No occlusion or significant stenosis. No aneurysm. Right intracranial internal carotid artery: There is mild atherosclerotic plaque of the intracranial right internal carotid artery. No stenosis, aneurysm, occlusion or dissection. Right intracranial vertebral artery: No abnormality noted. No significant stenosis. No dissection or occlusion. Left anterior cerebral artery: No abnormality noted. No occlusion or significant stenosis. No aneurysm. Left middle cerebral artery: No abnormality noted. No occlusion or significant stenosis. No aneurysm. Left posterior cerebral artery: No abnormality noted. No occlusion or significant stenosis. No aneurysm. Left intracranial internal carotid artery: There is mild atherosclerosis of the intracranial left internal carotid artery. No stenosis, aneurysm, occlusion or dissection. There is mild atherosclerotic plaque of the intracranial left internal carotid artery. No stenosis, aneurysm, occlusion or dissection. Left intracranial vertebral artery: No abnormality noted. No significant stenosis. No dissection or occlusion. Basilar artery: No abnormality noted. No occlusion or significant stenosis. No aneurysm. Other vasculature: Patent dural venous sinuses. No vascular malformation. NECK: Right common carotid artery: No abnormality noted. No significant stenosis. No dissection or occlusion. Right extracranial internal carotid artery: No abnormality noted. No significant stenosis. No dissection or occlusion. Right external carotid artery: No abnormality noted. No occlusion. Right extracranial vertebral artery: No abnormality noted. No significant stenosis. No dissection or occlusion. Left common carotid artery: No abnormality noted. No significant stenosis. No dissection or occlusion. Left extracranial internal carotid artery: No abnormality noted. No significant stenosis. No dissection or occlusion. Left external carotid artery: No abnormality noted. No occlusion. Left extracranial vertebral artery: No abnormality noted. No significant stenosis. No dissection or occlusion. Brachiocephalic and subclavian arteries: There is mild calcific plaque at the origin of the left subclavian artery. No stenosis, dissection or aneurysm. Lung apices: No significant abnormality noted. HEAD and NECK: Bones/joints: No significant abnormality. Soft tissues: No abnormality noted. CAROTID STENOSIS REFERENCE USING NASCET CRITERIA: % ICA stenosis = (1 - narrowest ICA diameter/diameter of distal cervical ICA) x 100. Mild - <50% stenosis. Moderate - 50-69% stenosis. Severe - 70-94% stenosis. Near occlusion - 95-99% stenosis. Occluded - 100% stenosis. IMPRESSION: 1. No angiographic abnormality in the head or neck. 2. 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 ACT 112: N/A Electronically signed by Elizabeth Gamboa 03-12-2025 6:20 PM Elbow X-Ray 03/12/25 17:20 EXAM: Radiographs of the Right Elbow Complete 3 Views INDICATION: Trauma TECHNIQUE: Frontal, lateral and oblique views of the right elbow. COMPARISON: No relevant prior studies available. FINDINGS: Bones/joints: No fracture, erosion or dislocation. Soft tissues: No abnormality noted. No radiopaque foreign body noted. IMPRESSION: No abnormality noted. ACT 112: N/A Electronically signed by Elizabeth Gamboa 03-12-2025 6:20 PM Forearm X-Ray 03/12/25 17:20 EXAM: Radiographs of the Right Forearm 2 Views INDICATION: Trauma TECHNIQUE: Frontal and lateral views of the right forearm. COMPARISON: No relevant prior studies available. FINDINGS: Bones/joints: No fracture, erosion or dislocation. Soft tissues: See below. Tubes, lines and devices: Intravenous catheter noted in the soft tissues dorsal medial distal forearm. No other foreign body noted. IMPRESSION: No fracture of the right forearm. ACT 112: N/A Electronically signed by Elizabeth Gamboa 03-12-2025 6:24 PM Humerus X-Ray 03/12/25 17:20 EXAM: Radiographs of the Right Humerus 2 Views INDICATION: Trauma TECHNIQUE: Frontal and lateral views of the right humerus. COMPARISON: No relevant prior studies available. FINDINGS: Limitations: None. Bones/joints: Shoulder arthroplasty components well-seated, intact and normally position. No fracture or dislocation. Visualized right ribs and scapula intact. Soft tissues: No abnormality noted. No radiopaque foreign body noted. IMPRESSION: No acute abnormality of the right humerus. ACT 112: N/A Electronically signed by Elizabeth Gamboa 03-12-2025 6:24 PM Chest CTA 03/12/25 17:26 EXAM: CT Angiography Chest With Intravenous Contrast INDICATION: Lightheadedness. Syncope. TECHNIQUE: Axial computed tomographic angiography images of the chest with intravenous contrast. Sagittal and coronal reformatted images were created and reviewed. This CT exam was performed using one or more of the following dose reduction techniques: automated exposure control, adjustment of the mA and/or kV according to patient size, and/or use of iterative reconstruction technique. MIP reconstructed images were created and reviewed. CONTRAST: 119ml of Optiray 320 was administered intravenously. COMPARISON: 11/06/2024 FINDINGS: Pulmonary arteries: No abnormality noted. No pulmonary embolism. Aorta: See below. Lungs and pleural spaces: No change 3 mm right pulmonary nodule along the right fissure series 6 image 60/111. Stable subpleural probable granuloma in the right lower lobe. [place] stable benign-appearing nodules along the fissures measuring up to 6 mm. No further assessment required. No bronchiectasis, honeycombing or reticulation. Heart: No abnormality noted. No cardiomegaly. No significant pericardial effusion. No evidence of RV dysfunction. Mediastinum: Postoperative changes of the stomach and GE junction with stable small sliding hiatal hernia. Bones/joints: Streak artifact from right shoulder arthroplasty. No acute osseous abnormality. Soft tissues: No abnormality noted. Lymph nodes: Stable bilateral hilar adenopathy. Stable shotty nodes lateral to the aorta. IMPRESSION: 1. No pulmonary embolus noted. 2. No pulmonary infiltrate. 3. Stable adenopathy. ACT 112: N/A Electronically signed by Elizabeth Gamboa 03-12-2025 6:41 PM MDM Narrative Patient was seen and evaluated as above in room C07. Review was performed of nursing notes and vital signs. After obtaining a thorough history and physical examination the above work up was performed. Patient presents to us today for evaluation of right arm pain status post fall x 2. She notes ongoing dizziness/vertigo type sensation over the past 4 days. There are no acute deficits on my examination. No preceding or current illness. NIHSS on my exam is 0. EKG reveals normal sinus rhythm at a rate of 97 bpm. QTc 426. QRS 84. No ST elevation on this rhythm tracing. Options of care were discussed with the patient. I-STAT obtained and patient was sent to CT and had stat x-rays performed. X-rays of the right humerus, elbow and forearm as well as chest x-ray plus CTA head with and without contrast and neck CTA with contrast were performed plus CT PE study. Imaging as above and per radiology without significant finding. Patient clinically dry in appearance and notes less oral intake today than usual. I did order IV fluid 1 L. She was given IV Dilaudid for pain, Zofran for nausea. Labs with mild leukopenia 4.31. Mild anemia, similar to previous at 11.8. Coags normal. No emergent metabolic disturbance. Troponin within normal range. TSH reveals euthyroid state. Lyme testing negative. Arm sling ordered for the right arm. At this time I do believe that further evaluation and management in the inpatient setting is warranted. Hospitalist service was consulted. Please refer to further documentation regarding her stay. GCS: 15 In the evaluation and treatment of this patient the following differential diagnoses were entertained: Fracture, dislocation, subluxation, contusion, sprain, strain, intracranial hemorrhage, concussion, CVA, TIA, among others. Impression & Plan Fall, Dizziness, Arm pain, right Discharge Plan Visit Data Chief Complaint: Fall Stated Complaint: LIGHT HEADED FELL ON ARM FELL TWICE ED Provider: Saul Mtz ED Midlevel Provider: Madhu Genao Discharge Problem: Fall, Dizziness, Arm pain, right Patient Disposition: Admitted As Inpatient Condition: Good Discharge Instructions Interventions: ED Discharge Assessment Last Done: 03/12/25 21:32
[2025-03-12] MEDS: ONDANSETRON INJ 2 MG/ML 2 ML VIAL IV STA (17:38)
[2025-03-12] MEDS: HYDROmorphone INJ 0.5 MG/0.5 ML SYR IV STA ×2 (17:38→18:30)
[2025-03-12 17:45] LABS: Basophils # (auto) 0.04 K/uL (0.00-0.20); Basophils % (auto) 0.9 %; Eosinophils # (auto) 0.05 K/uL (0.00-0.50); Eosinophils % (auto) 1.2 %; Hematocrit (blood only) 38.1 % (37.0-47.0); Hemoglobin 11.8 g/dl (12.0-16.0); Immature Granulocytes # (auto) 0.01 K/uL (0.01-0.20); Immature Granulocytes % (auto) 0.2 %; Lymphocytes # (auto) 0.73 K/uL (1.20-3.40); Lymphocytes % (auto) 16.9 %; Mean Corpuscular Hemoglobin 22.1 pg (25.0-34.0); Mean Corpuscular Volume 71.5 fL (80.0-100.0); Mean Platelet Volume 9.1 fL (9.4-12.4); Monocytes # (auto) 0.44 K/uL (0.11-0.59); Monocytes % (auto) 10.2 %; Neutrophils # (auto) 3.04 K/uL (1.40-6.50); Neutrophils % (auto) 70.6 %; Platelet Count 278 K/uL (130-400); RDW Coefficient of Variation 18.9 % (11.5-14.5); RDW Standard Deviation 45.4 fL (36.4-46.3); Red Blood Count 5.33 M/uL (4.20-5.40); White Blood Count 4.31 K/ul (4.8-10.8)
[2025-03-12 17:53] LABS: iSTAT Creatinine 0.6 mg/dl (0.6-1.3); iSTAT Hemoglobin 13.6 g/dl (12.0-16.0); iSTAT Ionized Calcium 1.26 mmol/l (1.12-1.32); iSTAT Potassium 3.9 mmol/L (3.3-5.0)
[2025-03-12] MEDS: OPTIRAY 320 125ml IV ONE (17:59)
[2025-03-12 18:04] LABS: Albumin Globulin Ratio 1.3 (0.9-2); Albumin Level 4.1 gm/dl (3.4-5.0); BUN Creatinine Ratio 19.2 (10-20); Bilirubin,Total 0.5 mg/dl (0.2-1.0); Calcium 9.8 mg/dl (8.6-10.3); Creatinine Clr Calc Pharmacy 116.7 ml/min; Globulin 3.1 gm/dl (2.5-4.0); Magnesium 1.9 mg/dl (1.7-2.4); Potassium 3.9 mmol/L (3.5-5.1); Total Protein 7.2 gm/dl (6.0-8.3)
[2025-03-12 18:11] LABS: Troponin I High Sensitivity 5.4 pg/ml (0-14)
[2025-03-12 18:14] LABS: Partial Thromboplastin Ratio 1.2; Partial Thromboplastin Time 31 Seconds (21-31); Prothrombin Time 10.9 Seconds (9.0-12.0)
--- NOTE | 2025-03-12 18:20 | CT Scan Report ---
EXAM: CT Angiography Head and Neck With Intravenous Contrast INDICATION: Lightheadedness. Fell twice today. TECHNIQUE: [place]/head and neck CT angiography protocol performed with intravenous contrast. Sagittal and coronal reformatted images were created and reviewed. This CT exam was performed using one or more of the following dose reduction techniques: automated exposure control, adjustment of the mA and/or kV according to patient size, and/or use of iterative reconstruction technique. MIP reconstructed images were created and reviewed. CONTRAST: 119ml of Optiray 320 was administered intravenously. COMPARISON: None. FINDINGS: HEAD: Right anterior cerebral artery: No abnormality noted. No occlusion or significant stenosis. Anterior communicating artery is present. No aneurysm. Right middle cerebral artery: No abnormality noted. No occlusion or significant stenosis. No aneurysm. Right posterior cerebral artery: No abnormality noted. No occlusion or significant stenosis. No aneurysm. Right intracranial internal carotid artery: There is mild atherosclerotic plaque of the intracranial right internal carotid artery. No stenosis, aneurysm, occlusion or dissection. Right intracranial vertebral artery: No abnormality noted. No significant stenosis. No dissection or occlusion. Left anterior cerebral artery: No abnormality noted. No occlusion or significant stenosis. No aneurysm. Left middle cerebral artery: No abnormality noted. No occlusion or significant stenosis. No aneurysm. Left posterior cerebral artery: No abnormality noted. No occlusion or significant stenosis. No aneurysm. Left intracranial internal carotid artery: There is mild atherosclerosis of the intracranial left internal carotid artery. No stenosis, aneurysm, occlusion or dissection. There is mild atherosclerotic plaque of the intracranial left internal carotid artery. No stenosis, aneurysm, occlusion or dissection. Left intracranial vertebral artery: No abnormality noted. No significant stenosis. No dissection or occlusion. Basilar artery: No abnormality noted. No occlusion or significant stenosis. No aneurysm. Other vasculature: Patent dural venous sinuses. No vascular malformation. NECK: Right common carotid artery: No abnormality noted. No significant stenosis. No dissection or occlusion. Right extracranial internal carotid artery: No abnormality noted. No significant stenosis. No dissection or occlusion. Right external carotid artery: No abnormality noted. No occlusion. Right extracranial vertebral artery: No abnormality noted. No significant stenosis. No dissection or occlusion. Left common carotid artery: No abnormality noted. No significant stenosis. No dissection or occlusion. Left extracranial internal carotid artery: No abnormality noted. No significant stenosis. No dissection or occlusion. Left external carotid artery: No abnormality noted. No occlusion. Left extracranial vertebral artery: No abnormality noted. No significant stenosis. No dissection or occlusion. Brachiocephalic and subclavian arteries: There is mild calcific plaque at the origin of the left subclavian artery. No stenosis, dissection or aneurysm. Lung apices: No significant abnormality noted. HEAD and NECK: Bones/joints: No significant abnormality. Soft tissues: No abnormality noted. CAROTID STENOSIS REFERENCE USING NASCET CRITERIA: % ICA stenosis = (1 - narrowest ICA diameter/diameter of distal cervical ICA) x 100. Mild - <50% stenosis. Moderate - 50-69% stenosis. Severe - 70-94% stenosis. Near occlusion - 95-99% stenosis. Occluded - 100% stenosis. IMPRESSION: 1. No angiographic abnormality in the head or neck. 2. 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 ACT 112: N/A Electronically signed by Elizabeth Gamboa 03-12-2025 6:20 PM
[2025-03-12 18:21] LABS: Thyroid Stimulating Hormone 1.086 uIu/ml (0.300-4.500)
--- NOTE | 2025-03-12 18:21 | XRay Report ---
EXAM: Radiographs of the Right Elbow Complete 3 Views INDICATION: Trauma TECHNIQUE: Frontal, lateral and oblique views of the right elbow. COMPARISON: No relevant prior studies available. FINDINGS: Bones/joints: No fracture, erosion or dislocation. Soft tissues: No abnormality noted. No radiopaque foreign body noted. IMPRESSION: No abnormality noted. ACT 112: N/A Electronically signed by Elizabeth Gamboa 03-12-2025 6:20 PM
--- NOTE | 2025-03-12 18:24 | XRay Report ---
EXAM: Radiographs of the Right Forearm 2 Views INDICATION: Trauma TECHNIQUE: Frontal and lateral views of the right forearm. COMPARISON: No relevant prior studies available. FINDINGS: Bones/joints: No fracture, erosion or dislocation. Soft tissues: See below. Tubes, lines and devices: Intravenous catheter noted in the soft tissues dorsal medial distal forearm. No other foreign body noted. IMPRESSION: No fracture of the right forearm. ACT 112: N/A Electronically signed by Elizabeth Gamboa 03-12-2025 6:24 PM
--- NOTE | 2025-03-12 18:24 | XRay Report ---
EXAM: Radiograph of the Chest 1 View INDICATION: Trauma TECHNIQUE: Frontal view of the chest. COMPARISON: No relevant prior studies available. FINDINGS: Lungs and pleural spaces: No consolidation or pulmonary edema. No pleural effusion or pneumothorax. Heart: Shape and configuration within normal limits allowing for technique. Mediastinum: Small sliding hiatal hernia noted. Bones/joints: Visualized portion of right shoulder arthroplasty components well-seated and intact. No acute osseous abnormality. Rotator cuff thinning noted in the left shoulder. Soft tissues: No abnormality noted. No radiopaque foreign body noted. Vasculature: Mild ectatic aorta with minimal large calcification. Upper abdomen: No abnormality noted. IMPRESSION: No acute cardiopulmonary disease. ACT 112: N/A Electronically signed by Elizabeth Gamboa 03-12-2025 6:24 PM
--- NOTE | 2025-03-12 18:24 | XRay Report ---
EXAM: Radiographs of the Right Humerus 2 Views INDICATION: Trauma TECHNIQUE: Frontal and lateral views of the right humerus. COMPARISON: No relevant prior studies available. FINDINGS: Limitations: None. Bones/joints: Shoulder arthroplasty components well-seated, intact and normally position. No fracture or dislocation. Visualized right ribs and scapula intact. Soft tissues: No abnormality noted. No radiopaque foreign body noted. IMPRESSION: No acute abnormality of the right humerus. ACT 112: N/A Electronically signed by Elizabeth Gamboa 03-12-2025 6:24 PM
[2025-03-12] MEDS: SODIUM CHLORIDE 0.9% 1,000 ML IV ONE (18:30)
--- NOTE | 2025-03-12 18:42 | CT Scan Report ---
EXAM: CT Angiography Chest With Intravenous Contrast INDICATION: Lightheadedness. Syncope. TECHNIQUE: Axial computed tomographic angiography images of the chest with intravenous contrast. Sagittal and coronal reformatted images were created and reviewed. This CT exam was performed using one or more of the following dose reduction techniques: automated exposure control, adjustment of the mA and/or kV according to patient size, and/or use of iterative reconstruction technique. MIP reconstructed images were created and reviewed. CONTRAST: 119ml of Optiray 320 was administered intravenously. COMPARISON: 11/06/2024 FINDINGS: Pulmonary arteries: No abnormality noted. No pulmonary embolism. Aorta: See below. Lungs and pleural spaces: No change 3 mm right pulmonary nodule along the right fissure series 6 image 60/111. Stable subpleural probable granuloma in the right lower lobe. [place] stable benign-appearing nodules along the fissures measuring up to 6 mm. No further assessment required. No bronchiectasis, honeycombing or reticulation. Heart: No abnormality noted. No cardiomegaly. No significant pericardial effusion. No evidence of RV dysfunction. Mediastinum: Postoperative changes of the stomach and GE junction with stable small sliding hiatal hernia. Bones/joints: Streak artifact from right shoulder arthroplasty. No acute osseous abnormality. Soft tissues: No abnormality noted. Lymph nodes: Stable bilateral hilar adenopathy. Stable shotty nodes lateral to the aorta. IMPRESSION: 1. No pulmonary embolus noted. 2. No pulmonary infiltrate. 3. Stable adenopathy. ACT 112: N/A Electronically signed by Elizabeth Gamboa 03-12-2025 6:41 PM
[2025-03-12] MEDS ORDERED: ACETAMINOPHEN 325 MG TAB PO PRN ×2 (19:10→19:53)
--- NOTE | 2025-03-12 20:14 | History & Physical Report ---
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 I didn't fall down at all. Then, today (03/12/2025), I fell down twice in my home: the first time was at 9:45am in my mud room, just before I went outside to my garage, I fell down and landed on my right arm on the floor of the mud room. I did not pass out. I got up by myself. The second time I fell was at 3:45pm upstairs in the hallway, and I landed with both my hands outstretched. My hands and wrists don't hurt at all. The pain in my right arm is like a 6-7 (out of 10 point intensity scale), but the ER doctor said my right arm is not broken. I haven't fall down before. I don't know why I fell down twice today, other than my feeling off balance at work last week, but not so today. I dunno." Primary Care Provider: James Mixon 59 years old female with PMH of FULL CODE @ home, obesity with BMI 30.5 (height 160.0 cm; weight 78.1 kg), s/p gastric bypass surgery (2008, [facility] @ [place]) with pre-surgical weight of 325 pounds and post-surgical weight of 165 pounds, followed by subsequent development of chronic microcytic, hypochromic anemia with baseline Hb range, 10.0 - 11.5 g/dL (04/18/2020 - 02/25/2025), due to iron deficiency (for which patient received IV iron infusion in the past 2 weeks) and vitamin B12 deficiency (for which patient receives intermittent vitamin B12 supplement(s)), GERD on esomeprazole 20mg PO qam for the past several years, MRSA+ nares (date unknown), HTN on lisinopril 10mg PO qam prn HTN, mild intermittent asthma, never intubated or ventilated, on albuterol MDI 90ug/puff, 2 puffs PO q4 prn SOB/THOMAS, major depression on bupropion XL 300mg PO qam, chronic pain disorder in left ankle after having undergone 20+ surgeries on/in the left ankle over the past 15 years with [facility] Orthopedic Surgeon Dr. Anthony Harman, now on dilaudid 4mg PO q2-4h prn pain in/on left ankle and flexeril 10mg PO tid prn muscle spasms in left ankle/leg, with subsequent development of chronic nominal elevation in ALK PHOS level, with baseline ALK PHOS range, 107-132 U/L (12/09/2017 - 11/05/2024), who underwent right reverse shoulder replacement (10/11/2025, [facility] Orthopedic Surgeon Dr. 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 I didn't fall down at all. Then, today (03/12/2025), I fell down twice in my home: the first time was at 9:45am in my mud room, just before I went outside to my garage, I fell down and landed on my right arm on the floor of the mud room. I did not pass out. I got up by myself. The second time I fell was at 3:45pm upstairs in the hallway, and I landed with both my hands outstretched. My hands and wrists don't hurt at all. The pain in my right arm is like a 6-7 (out of 10 point intensity scale), but the ER doctor said my right arm is not broken. I haven't fall down before. I don't know why I fell down twice today, other than my feeling off balance at work last week, but not so today. I dunno." Patient denies antecedent/coincident anosmia, ageusia, hypogeusia, myalgias, arthralgias, rhinorrhea, otorrhea, fevers, chills, diaphoresis, shortness of breath, dyspnea on exertion, cough, wheeze, sore throat, hemoptysis, chest pains, palpitations, pleurisy, nausea, vomiting, diarrhea, abdominal pain, pelvic pain, flank pain, back pain, shoulder pain, hematemesis, hematochezia, melena, hematuria, dysuria, frequency, urgency, headaches, dizziness, lightheadedness, visual changes, hearing changes, weakness, syncope, travel history, sick contacts, or food/drug ingestions novel or new. All other review of systems are reported as negative by the patient on observation date 03/12/2025. In [facility] ER bed #C7, patient was afebrile @ 36.4 degrees Celsius, HR 96, RR 18, O2 sat 98% on room air, and BP 139/80 (03/12/2025, 4:58pm). Exam was noted for non-tender, resolving ecchymoses on right biceps, and full range of motion @ right shoulder, biceps, triceps, elbow, forearm, wrist, and fingers, with patient's right arm supported by a cloth sling. Patient's left ankle, s/p 20+ surgeries on/in the left ankle over the past 15 years with [facility] Orthopedic Surgeon Dr. Anthony Harman, now on dilaudid 4mg PO q2-4h prn pain in/on left ankle and flexeril 10mg PO tid prn muscle spasms in left ankle/leg, appeared minimally deformed with no edema, induration, warmth, tenderness, crepitus, fluctuance, discharge (sanguineous, serous, suppurative), ulceration, malodor, or lymphangitic streaking. Labs in [facility] ER bed #C7 included: WBC 4.31, N71 L17 M10 E1 B1, Hb 11.8, MCV 71.5, MCHC 31.0, platelet 278 (03/12/2025, 5:31pm). Na 142, K 3.9, BUN 10, creatinine 0.52, glucose 98, Ca 9.8, AST 20, ALT 21, ALK PHOS 112, TBili 0.5 (03/12/2025, 5:31pm). Mg 1.9 (03/12/2025, 5:31pm). PO4 __ (03/12/2025, 7:45pm). TSH 1.086 uIU/mL (03/12/2025, 5:31pm). TSH 1.111 uIU/mL (03/12/2025, 7:45pm). U/A (03/12/2025, 5:19pm; re-ordered 7:10pm): ____ Urine drug screen (03/12/2025, 7:19pm): BIOFIRE respiratory pathogen panel (03/12/2025, 8:00pm): MRSA nares screen (03/12/2025, 8:00pm): Additional testing in [facility] ER bed #C7 included: Portable CXR (03/12/2025, 5:19pm): No infiltrate, effusion, cardiomegaly, pulmonary vascular congestion, or pneumothorax. Small sliding hiatal hernia in situ. (by my review). CTA head (03/12/2025, 5:19pm): No angiographic abnormality in the head or neck. 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 CTA neck (03/12/2025, 5:19pm): No angiographic abnormality in the head or neck. 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 Right elbow x-ray (03/12/2025, 5:20pm): No fracture, erosion, or dislocation of right elbow. Right forearm x-ray (03/12/2025, 5:20pm): No fracture, erosion, or dislocation of right forearm. Right humerus x-ray (03/12/2025, 5:20pm): No fracture, erosion, or dislocation of right humerus. CTA chest (03/12/2025, 5:20pm): No PE. No infiltrate. No change 3 mm right pulmonary nodule along the right fissure series 6 image 60/111. Stable subpleural probable granuloma in the right lower lobe. Appearance stable benign-appearing nodules along the fissures measuring up to 6 mm. Stable bilateral hilar adenopathy. Stable shotty nodes lateral to the aorta. cf., 11/05/2024 CTA chest. Patient was subsequently placed in OBSERVATION on the hospitalist service @ [facility] on 03/12/2025 with the following diagnoses: 1. Acute ambulatory dysfunction resulting in 2 mechanical falls at home on 03/12/2025, 9:45am, 3:45pm, most probably due to acute viral syndrome given the concomitant findings of acute leukopenia with WBC 4.31, acute peripheral lymphocytopenia with L17%, and acute peripheral monocytosis with M10% (03/12/2025, 5:31pm). R/O alternative etiologies for acute ambulatory dysfunction including acute UTI; hypophosphatemia; polypharmacy involving concomitant administration of home-scheduled esomeprazole 20mg PO qam (recognizing that drugs in the proton pump inhibitor class are well known to cause falls, fractures, hyponatremia, thrombocytopenia, etc), promethazine 25mg PO q4-6 prn nausea/vomiting, dilaudid 4mg PO q2-4 prn pain in left ankle after having undergone 20+ surgeries on/in the left ankle over the past 15 years with [facility] Orthopedic Surgeon Dr. Anthony Harman). 2. Incidental finding of "small sliding hiatal hernia in situ." (as reported on 03/12/2025, 5:19pm portable CXR). 3. Chronic pain disorder in left ankle after having undergone 20+ surgeries on/in the left ankle over the past 15 years with [facility] Orthopedic Surgeon Dr. Anthony Harman, now on dilaudid 4mg PO q2-4h prn pain in/on left ankle and flexeril 10mg PO tid prn muscle spasms in left ankle/leg. 4. Chronic nominal elevation in ALK PHOS level, with baseline ALK PHOS range, 107-132 U/L (12/09/2017 - 11/05/2024), cf., admission ALK PHOS 112 U/L (03/12/2025, 5:31pm). To address #1, patient awaits BIOFIRE respiratory pathogen panel (03/12/2025, 8:00pm); even a foy-negative result from BIOFIRE respiratory pathogen panel testing will not dissuade my firm conviction that patient suffers from an acute viral syndrome as there are not many, if any, plausible explanations to account for the concomitant findings of acute leukopenia with WBC 4.31, acute peripheral lymphocytopenia with L17%, and acute peripheral monocytosis with M10% (03/12/2025, 5:31pm). In most acute viral syndromes, the targets of infection are the lymphocytes and the monocytes, with direct cytopathic effects on lymphocytes (culminating in lymphocytopenia) and direct recruitment of monocytes/macrophages (culminating in monocytosis). To address the less likely alternatives of acute UTI; hypothyroidism; hypophosphatemia; and polypharmacy, patient awaits U/A with microscopy; PO4; and urine drug toxicology screening, respectively, while discontinuing patient's home-scheduled esomeprazole 20mg PO qam immediately/permanently, as well as patient's home-scheduled promethazine 25mg PO q4-6 prn nausea/vomiting. At this time, I have opted to continue patient's home-scheduled dilaudid 4mg PO q2-4 prn pain in left ankle after having undergone 20+ surgeries on/in the left ankle over the past 15 years with [facility] Orthopedic Surgeon Dr. Anthony Harman), as I surmise that this patient will not be able to sleep overnight (03/12/2025) without this medication. Of final note, patient awaits PT/OT Service evaluations in the 03/13/2025, 8:00am to determine if patient can be discharged back to her home safely or if patient should be discharged to SNF for short-term rehab. 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 To address #2, patient has been started on famotidine 40mg PO qam, as I have discontinued patient's home-scheduled esomeprazole 20mg PO qam immediately/permanently on 03/12/2025, 8:00pm, given the potential for patient's home-scheduled esomeprazole 20mg PO qam to cause falls, fractures, hyponatremia, thrombocytopenia, etc). To address #3, patient continues to receive her home-scheduled dilaudid 4mg PO q2-4h prn pain in/on left ankle and flexeril 10mg PO tid prn muscle spasms in left ankle/leg. To address #4, patient is being observed without any need for further ALK PHOS level testing as I surmise that the nominal ALK PHOS elevation is due to chronic inflammation in this patient who has undergone 20+ surgeries on/in the left ankle over the past 15 years with [facility] Orthopedic Surgeon Dr. Anthony Harman). Allergies Allergy/AdvReac Type Severity Reaction Status Date / Time gentamicin Allergy Intermediate Hives, Rash Verified 03/12/25 17:35 latex Allergy Intermediate Swelling Verified 03/12/25 17:35 of Eyes morphine Allergy Intermediate Rash, Verified 03/12/25 17:35 Shaking, Diaphoretic Home Medications Medication Instructions Recorded Confirmed Type albuterol sulfate 90 mcg/actuation 2 puff inhalation Q4 PRN Shortness 06/30/20 03/12/25 History aerosol inhaler (Ventolin HFA) Of Breath Or Wheezing cyanocobalamin (vitamin B-12) 1,000 mcg IM WK Depending on Lab 06/30/20 03/12/25 History 1,000 mcg/mL injection solution Results (Dodex) hydromorphone 4 mg tablet 4 mg PO Q6H PRN Pain 06/30/20 03/12/25 History (Dilaudid) lisinopril 20 mg tablet (Zestril) 10 mg PO QAM 06/30/20 03/12/25 History promethazine 6.25 mg/5 mL oral 25 mg PO .Q4-6HRS PRN Nausea And 06/30/20 03/12/25 History syrup Vomiting bupropion HCl 300 mg 24 hr tablet, 300 mg PO QAM 06/23/24 03/12/25 History extended release (Wellbutrin XL) esomeprazole magnesium 20 mg 20 mg PO QAM 09/13/24 03/12/25 History capsule,delayed release (Nexium) cyclobenzaprine 10 mg tablet 10 mg PO TID PRN muscle spasm #20 02/16/25 03/12/25 Rx tabs amoxicillin 500 mg tablet 2,000 mg PO DIRECTED PRN 1 HR 03/12/25 03/12/25 History PRIOR TO DENTAL PROCEDURES conjugated estrogens 0.625 mg/gram 0.625 mg vaginal .[id number] 03/12/25 03/12/25 History vaginal cream (Premarin) Past Med/Surg History Problem List Status post reverse total replacement of left shoulder (~10/2024) Dyspareunia in female Migraine headache (Chronic) Hypertension (Chronic) GERD (gastroesophageal reflux disease) (Chronic) Retained orthopedic hardware (Acute) Medical History PONV (postoperative nausea and vomiting) denies needing scop patch Anemia has received iron infusions in the past-last infusion over one year ago Depression with anxiety Hx of pulmonary embolus (~2014) states was not present on subsequent imaging after admission-denies anticoagulation Migraine denies recent migraine Hypertension controlled, stable per pt GERD (gastroesophageal reflux disease) controlled, stable per pt Asthma controlled, stable per pt; albuterol inhaler use 4-5 times per week on average-denies change or worsening Surgical History History of gastric bypass with hernia repair History of cholecystectomy History of x 4 History of ankle surgery 17-20 surgeries on left ankle Family History Father , at 75 years of age from lung CA in the setting of tobacco abuse. No problems noted. Mother , at 73 years of age from acute CVA, in the setting of lung CA with concomitant tobacco abuse, but no DM. No problems noted. 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 Patient is , and has 2 sons (aged 32 years and 20 years) and 2 daughters (aged 37 years and 28 years), all alive and well. Patient lives in her own home with her , and ambulates without assistance from cane, walker, or wheelchair. Patient drives a car independently, to/from her home and work. Patient comes to [facility] ER from her home via private family car driven by her daughter, today, 03/12/2025. Review of Systems Constitutional: As above in the History of Present Illness. Physical Exam Constitutional: General: Comfortable, coherent, cooperative. Wide awake and alert. Not confused, lethargic, or obtunded. Patient speaks in complete, fluent, and articulate sentences without pause, cough, or wheeze, with O2 sat 98% on room air (03/12/2025, 4:58pm). HEENT: Normocephalic, atraumatic. Extra-ocular muscles intact. Pupils equally round and reactive to light. No nystagmus, gaze paresis, anisocoria, miosis, mydriasis, hyphema, scleral injection, conjunctivitis, or pterygium. No otorrhea or rhinorrhea. No pharyngeal erythema, edema, or discharge. Neck: Supple, no stridor, bruit, goiter, or hepato-jugular reflux. Jugular venous pressure is estimated to be 3 cm above the sternal angle of Heber, which in turn, is 5 cm above the level of the right atrium; with jugular venous pressure estimated to be 8 cm, then, there is no jugular venous distention on 03/12/2025. Lymphatics: No cervical (anterior/posterior), supraclavicular, infraclavicular, axillary, epitrochlear, or inguinal adenopathy. Chest: Symmetric rise and fall with respirations. Non-tender to palpation. Lungs: Clear to auscultation and percussion. No audible expiratory wheeze, egophony, pectoriloquy, increase in tactile fremitus, or flatness/dullness to percussion at the bases. Heart: Regular rate and rhythm. S1 and S2 noted. No S3 or S4 summation gallop. No tripartite friction rub. Grade II/ early systolic murmur @ LLSB without radiation to the carotids, axilla, or back, and which remains invariant in regards to the respiratory cycle. Abdomen: Soft, non-tender, non-distended. No rebound, guarding, Morgan's sign, or organomegaly. Bowel sounds auscultated in all 4 quadrants. Extremities: No clubbing, cyanosis, or edema. 2+ pedal pulses bilaterally. Non-tender, resolving ecchymoses on right biceps, and full range of motion @ right shoulder, biceps, triceps, elbow, forearm, wrist, and fingers, with patient's right arm supported by a cloth sling. Patient's left ankle, s/p 20+ surgeries on/in the left ankle over the past 15 years with [facility] Orthopedic Surgeon Dr. Anthony Harman, now on dilaudid 4mg PO q2- 4h prn pain in/on left ankle and flexeril 10mg PO tid prn muscle spasms in left ankle/leg, appeared minimally deformed with no edema, induration, warmth, tenderness, crepitus, fluctuance, discharge (sanguineous, serous, suppurative), ulceration, malodor, or lymphangitic streaking. Skin: No decubitus ulcer, exanthem, or enanthem. Genito-urinary: No urethral discharge. No peralta catheter. Neurology: Alert and oriented in regards to person, place, time, and situation. DTR+ and symmetric. 5/5 motor strength in all 4 extremities, both proximally and distally. No pronator drift. No facial droop. No dysarthria. Psychiatry: No homicidal ideation. No suicidal ideation. No flat affect; smiles appropriately Results & Data Results & Data Vital Signs (Past 12 Hours) Vital Signs Temp Pulse Pulse Resp BP BP Pulse Ox 03/12/25 19:30 92 H 18 146/90 H 98 03/12/25 19:24 104 H 21 95 03/12/25 19:15 83 19 96 03/12/25 19:10 86 20 134/102 H 98 03/12/25 19:00 96 H 17 97 03/12/25 18:51 103 H 19 96 03/12/25 18:45 100 H 29 H 97 03/12/25 18:33 146/90 H 03/12/25 18:30 98 H 23 03/12/25 18:15 91 H 18 03/12/25 18:06 21 03/12/25 17:43 93 H 03/12/25 17:42 93 H 30 H 95 03/12/25 17:34 90 20 96 03/12/25 17:20 20 114/87 92 03/12/25 16:58 36.4 C L 96 H 18 139/80 98 O2 Del Method 03/12/25 19:30 03/12/25 19:24 03/12/25 19:15 03/12/25 19:10 Room Air 03/12/25 19:00 03/12/25 18:51 03/12/25 18:45 03/12/25 18:33 03/12/25 18:30 03/12/25 18:15 03/12/25 18:06 03/12/25 17:43 03/12/25 17:42 03/12/25 17:34 Room Air 03/12/25 17:20 Room Air 03/12/25 16:58 Laboratory Results As above in the History of Present Illness. Diagnostic Findings As above in the History of Present Illness. Code Status & VTE Plan VTE Prophylaxis Plan VTE Prophylaxis will be ordered: Yes PG Care Time/CCT Total # of Minutes Spent Total Time Spent with Patient: Total time spent is greater than 50% in coordination of care (as documented) at patient's floor/unit and/or counseling patient: Coding Level of Care Code 15386 INT INP/OBS CARE 2/55MIN
[2025-03-12 20:24] LABS: Phosphorus 3.8 mg/dl (2.5-4.9)
[2025-03-12] MEDS: FAMOTIDINE 40 MG TABLET PO SCH (20:28)
[2025-03-12 20:40] LABS: Thyroid Stimulating Hormone 1.111 uIu/ml (0.300-4.500)
[2025-03-12 21:05] LABS: Adenovirus PCR Not Detected (NotDetected); Bordetella parapertussis PCR Not Detected (NotDetected); Bordetella pertussis PCR Not Detected (NotDetected); Chlamydia pneumoniae PCR Not Detected (NotDetected); Coronavirus 229E PCR Not Detected (NotDetected); Coronavirus CoV-2 (COVID19)PCR Not Detected (NotDetected); Coronavirus HKU1 PCR Not Detected (NotDetected); Coronavirus NL63 PCR Not Detected (NotDetected); Coronavirus OC43PCR Not Detected (NotDetected); Human Metapneumovirus PCR Not Detected (NotDetected); Influenza A PCR Not Detected (NotDetected); Influenza B PCR Not Detected (NotDetected); Mycoplasma pneumoniae PCR Not Detected (NotDetected); Parainfluenza Virus 1 PCR Not Detected (NotDetected); Parainfluenza Virus 2 PCR Not Detected (NotDetected); Parainfluenza Virus 3 PCR Not Detected (NotDetected); Parainfluenza Virus 4 PCR Not Detected (NotDetected); Respiratory Syncytial VirusPCR Not Detected (NotDetected); Rhinovirus/Enterovirus PCR Not Detected (NotDetected)
[2025-03-12] MEDS: HYDROmorphone HCL 4 MG TAB PO PRN (22:04)
[2025-03-12] MEDS ORDERED: ALBUTEROL HFA 8 GM INHALER INH PRN (22:45)
[2025-03-12 23:01] LABS: Appearance Urine Clear (Clear); Bilirubin Urine Negative (Negative); Blood Urine Negative (Negative); Color Urine Yellow; Glucose Urine UA Negative (Negative); Ketones Urine Negative (Negative); Leukocyte Esterase Urine Negative (Negative); Nitrite Urine Negative (Negative); Protein Urine Negative (Negative); Specific Gravity Urine > 1.045 (1.000-1.030); Urobilinogen Urine Negative (Negative); pH Urine 6.5 (4.5-7.5)
[2025-03-12 23:44] LABS: Amphetamines+Metham, Urine Neg (Neg); Barbiturates, Urine Neg (Neg); Benzodiazepine, Urine Neg (Neg); Cocaine, Urine Neg (Neg); Fentanyl, Urine Neg (Neg); MDMA (Ecstacy), Urine Pos (Neg); Marijuana, Urine Neg (Neg); Methadone, Urine Neg (Neg); Opiate, Urine Pos (Neg); Phencyclidine, Urine Neg (Neg)
[2025-03-13] MEDS: HYDROmorphone INJ 0.5 MG/0.5 ML SYR IV PRN ×2 (00:18→12:21)
--- NOTE | 2025-03-13 07:16 | Electrocardiogram Report ---
Test Reason : Blood Pressure : */* mmHG Vent. Rate : 97 BPM Atrial Rate : 97 BPM P-R Int : 140 ms QRS Dur : 84 ms QT Int : 336 ms P-R-T Axes : 59 -11 63 degrees QTcB Int : 426 ms Normal sinus rhythm Normal ECG When compared with ECG of 05-Nov-2024 22:51, No significant change was found Confirmed by Everette Snow ([id number]) on 03/13/2025 7:15:42 AM Referred By: REFERRED SELF Confirmed By: Everette Snow
[2025-03-13] MEDS: buPROPion XL 300 MG TABCR PO SCH (08:17)
[2025-03-13 08:50] LABS: Basophils # (auto) 0.03 K/uL (0.00-0.20); Basophils % (auto) 0.8 %; Eosinophils # (auto) 0.17 K/uL (0.00-0.50); Eosinophils % (auto) 4.3 %; Hematocrit (blood only) 33.8 % (37.0-47.0); Hemoglobin 10.1 g/dl (12.0-16.0); Immature Granulocytes # (auto) 0.02 K/uL (0.01-0.20); Immature Granulocytes % (auto) 0.5 %; Lymphocytes # (auto) 0.58 K/uL (1.20-3.40); Lymphocytes % (auto) 14.5 %; Mean Corpuscular Hemoglobin 21.9 pg (25.0-34.0); Mean Corpuscular Hgb Conc 29.9 g/dL (32.0-36.0); Mean Corpuscular Volume 73.2 fL (80.0-100.0); Monocytes # (auto) 0.39 K/uL (0.11-0.59); Monocytes % (auto) 9.8 %; Neutrophils % (auto) 70.1 %; Platelet Count 236 K/uL (130-400); RDW Standard Deviation 47.8 fL (36.4-46.3); Red Blood Count 4.62 M/uL (4.20-5.40); White Blood Count 3.99 K/ul (4.8-10.8)
--- NOTE | 2025-03-13 12:29 | Magnetic Resonance Report ---
MR brain wo con CLINICAL HISTORY: dizziness, lightheadedness COMPARISON STUDY: CT scan yesterday and MRI of 11/30/2009 FINDINGS: No restricted diffusion seen to suggest acute infarction. No mass effect, midline shift, or hydrocephalus. No significant signal abnormality in the brain. IMPRESSION: No evidence of acute infarction. ACT 112: Negative or not required by law. Electronically signed by: Catracho Kaiser M.D. 03/13/2025 12:28 PM
[2025-03-13] MEDS ORDERED: ALBUTEROL HFA 8 GM INHALER INH PRN (14:05)
--- NOTE | 2025-03-13 20:25 | Hospitalist Progress Note ---
Date of Service March 13, 2025 Assessment & Plan (1) Dizziness: Plan: See Plan below for details. (2) Viral syndrome: Plan: See Plan below for details. Plan 59 years old female with PMH of FULL CODE @ home, obesity with BMI 30.5 (height 160.0 cm; weight 78.1 kg), s/p gastric bypass surgery (2008, [facility] @ [place]) with pre-surgical weight of 325 pounds and post-surgical weight of 165 pounds, followed by subsequent development of chronic microcytic, hypochromic anemia with baseline Hb range, 10.0 - 11.5 g/dL (04/18/2020 - 02/25/2025), due to iron deficiency (for which patient received IV iron infusion in the past 2 weeks) and vitamin B12 deficiency (for which patient receives intermittent vitamin B12 supplement(s)), GERD on esomeprazole 20mg PO qam for the past several years, MRSA+ nares (date unknown), HTN on lisinopril 10mg PO qam prn HTN, mild intermittent asthma, never intubated or ventilated, on albuterol MDI 90ug/puff, 2 puffs PO q4 prn SOB/THOMAS, major depression on bupropion XL 300mg PO qam, chronic pain disorder in left ankle after having undergone 20+ surgeries on/in the left ankle over the past 15 years with [facility] Surgeon Dr. Anthony Harman, now on dilaudid 4mg PO q2-4h prn pain in/on left ankle and flexeril 10mg PO tid prn muscle spasms in left ankle/leg, with subsequent development of chronic nominal elevation in ALK PHOS level, with baseline ALK PHOS range, 107-132 U/L (12/09/2017 - 11/05/2024), who underwent right reverse shoulder replacement (10/11/2025, [facility] Orthopedic Surgeon Dr. 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 I didn't fall down at all. Then, today (03/12/2025), I fell down twice in my home: the first time was at 9:45am in my mud room, just before I went outside to my garage, I fell down and landed on my right arm on the floor of the mud room. I did not pass out. I got up by myself. The second time I fell was at 3:45pm upstairs in the hallway, and I landed with both my hands outstretched. My hands and wrists don't hurt at all. The pain in my right arm is like a 6-7 (out of 10 point intensity scale), but the ER doctor said my right arm is not broken. I haven't fall down before. I don't know why I fell down twice today, other than my feeling off balance at work last week, but not so today. I brittany." Patient was subsequently placed in OBSERVATION on the hospitalist service @ [facility] on 03/12/2025 with the following diagnoses: 1. Acute ambulatory dysfunction resulting in 2 mechanical falls at home on 03/12/2025, 9:45am, 3:45pm, most probably due to acute viral syndrome given the concomitant findings of acute leukopenia with WBC 4.31, acute peripheral lymphoc ytopenia with L17%, and acute peripheral monocytosis with M10% (03/12/2025, 5:31pm). R/O alternative etiologies for acute ambulatory dysfunction including acute UTI; hypophosphatemia; polypharmacy involving concomitant administration of home-scheduled esomeprazole 20mg PO qam (recognizing that drugs in the proton pump inhibitor class are well known to cause falls, fractures, hyponatremia, thrombocytopenia, etc), promethazine 25mg PO q4-6 prn nausea/vomiting, dilaudid 4mg PO q2-4 prn pain in left ankle after having undergone 20+ surgeries on/in the left ankle over the past 15 years with [facility] Orthopedic Surgeon Dr. Anthony Harman). 2. Incidental finding of "small sliding hiatal hernia in situ." (as reported on 03/12/2025, 5:19pm portable CXR). 3. Chronic pain disorder in left ankle after having undergone 20+ surgeries on/in the left ankle over the past 15 years with [facility] Orthopedic Surgeon Dr. Anthony Harman, now on dilaudid 4mg PO q2-4h prn pain in/on left ankle and flexeril 10mg PO tid prn muscle spasms in left ankle/leg. 4. Chronic nominal elevation in ALK PHOS level, with baseline ALK PHOS range, 107-132 U/L (12/09/2017 - 11/05/2024), cf., admission ALK PHOS 112 U/L (03/12/2025, 5:31pm). To address #1, patient underwent BIOFIRE respiratory pathogen panel (03/12/2025, 8:00pm) and which was reported as negative for all tested microbes; even a foy- negative result from BIOFIRE respiratory pathogen panel testing does not dissuade my firm conviction that patient suffers from an acute viral syndrome as there are not many, if any, plausible explanations to account for the concomitant findings of acute leukopenia with WBC 4.31, acute peripheral lymphocytopenia with L17%, and acute peripheral monocytosis with M10% (03/12/2025, 5:31pm). In most acute viral syndromes, the targets of infection are the lymphocytes and the monocytes, with direct cytopathic effects on lymphocytes (culminating in lymphocytopenia) and direct recruitment of monocytes/macrophages (culminating in monocytosis). To address the less likely alternatives of acute UTI; hypothyroidism; hypophosphatemia; and polypharmacy, patient awaits U/A with microscopy; PO4; and urine drug toxicology screening, respectively, while discontinuing patient's home-scheduled esomeprazole 20mg PO qam immediately/permanently, as well as patient's home-scheduled promethazine 25mg PO q4-6 prn nausea/vomiting. At this time, I have opted to continue patient's home-scheduled dilaudid 4mg PO q2-4 prn pain in left ankle after lucero ving undergone 20+ surgeries on/in the left ankle over the past 15 years with [facility] Orthopedic Surgeon Dr. Anthony Harman), as I surmise that this patient will not be able to sleep overnight (03/12/2025 or 03/13/2025) without this medication. Of final note, patient awaits PT/OT Service evaluations in the 03/14/2025, 8:00am to determine if patient can be discharged back to her home safely or if patient should be discharged to SNF for short-term rehab. 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 To address #2, patient has been started on famotidine 40mg PO qam, as I have discontinued patient's home-scheduled esomeprazole 20mg PO qam immediately/permanently on 03/12/2025, 8:00pm, given the potential for patient's home-scheduled esomeprazole 20mg PO qam to cause falls, fractures, hyponatremia, thrombocytopenia, etc). To address #3, patient continues to receive her home-scheduled dilaudid 4mg PO q2-4h prn pain in/on left ankle and flexeril 10mg PO tid prn muscle spasms in left ankle/leg. I have also started patient on dilaudid 0.5mg IV q2h prn pain in/on the right arm on 03/13/2025, 10:05am. To address #4, patient is being observed without any need for further ALK PHOS level testing as I surmise that the nominal ALK PHOS elevation is due to chronic inflammation in this patient who has undergone 20+ surgeries on/in the left ankle over the past 15 years with [facility] Orth[facility] Surgeon Dr. Anthony Harman). Admission and Anticipated Discharge Date Admission Date: March 12, 2025 Subjective "I still feel lightheaded and dizzy. No room spinning or blurry vision. My right arm hurts. I know you ordered the dilaudid pill every 2 hours, but could I have the dilaudid shot every 2 hours if I need it? Thanks. I should be able to go home tomorrow." Review of Systems Constitutional: Negative for antecedent/coincident anosmia, ageusia, hypogeusia, myalgias, arthralgias, rhinorrhea, otorrhea, fevers, chills, diaphoresis, shortness of breath, dyspnea on exertion, cough, wheeze, sore throat, hemoptysis, chest pains, palpitations, pleurisy, nausea, vomiting, diarrhea, abdominal pain, pelvic pain, flank pain, back pain, shoulder pain, hematemesis, hematochezia, melena, hematuria, dysuria, frequency, urgency, headaches, dizziness, lightheadedness, visual changes, hearing changes, weakness, syncope, travel history, sick contacts, or food/drug ingestions novel or new. All other review of systems are reported as negative by the patient on observation date 03/13/2025. Physical Exam Constitutional: General: Comfortable, coherent, cooperative. Wide awake and alert. Not confused, lethargic, or obtunded. Patient speaks in complete, fluent, and articulate sentences without pause, cough, or wheeze, with O2 sat 95% on room air (03/13/2025, 7:05am). HEENT: Normocephalic, atraumatic. Extra-ocular muscles intact. Pupils equally round and reactive to light. No nystagmus, gaze paresis, anisocoria, miosis, mydriasis, hyphema, scleral injection, conjunctivitis, or pterygium. No otorrhea or rhinorrhea. No pharyngeal erythema, edema, or discharge. Neck: Supple, no stridor, bruit, goiter, or hepato-jugular reflux. Jugular venous pressure is estimated to be 3 cm above the sternal angle of [place], which in turn, is 5 cm above the level of the right atrium; with jugular venous pressure estimated to be 8 cm, then, there is no jugular venous distention on 03/13/2025. Lymphatics: No cervical (anterior/posterior), supraclavicular, infraclavicular, axillary, epitrochlear, or inguinal adenopathy. Chest: Symmetric rise and fall with respirations. Non-tender to palpation. Lungs: Clear to auscultation and percussion. No audible expiratory wheeze, egophony, pectoriloquy, increase in tactile fremitus, or flatness/dullness to percussion at the bases. Heart: Regular rate and rhythm. S1 and S2 noted. No S3 or S4 summation gallop. No tripartite friction rub. Grade II/ early systolic murmur @ LLSB without radiation to the carotids, axilla, or back, and which remains invariant in regards to the respiratory cycle. Abdomen: Soft, non-tender, non-distended. No rebound, guarding, Morgan's sign, or organomegaly. Bowel sounds auscultated in all 4 quadrants. Extremities: No clubbing, cyanosis, or edema. 2+ pedal pulses bilaterally. Non-tender, resolving ecchymoses on right biceps, and full range of motion @ right shoulder, biceps, triceps, elbow, forearm, wrist, and fingers, with patient's right arm supported by a cloth sling. Patient's left ankle, s/p 20+ surgeries on/in the left ankle over the past 15 years with [facility] Orth[facility] Surgeon Dr. Anthony Harman, now on dilaudid 4mg PO q2- 4h prn pain in/on left ankle and flexeril 10mg PO tid prn muscle spasms in left ankle/leg, appeared minimally deformed with no edema, induration, warmth, tenderness, crepitus, fluctuance, discharge (sanguineous, serous, suppurative), ulceration, malodor, or lymphangitic streaking. Skin: No decubitus ulcer, exanthem, or enanthem. Genito-urinary: No urethral discharge. No peralta catheter. Neurology: Alert and oriented in regards to person, place, time, and situation. DTR+ and symmetric. 5/5 motor strength in all 4 extremities, both proximally and distally. No pronator drift. No facial droop. No dysarthria. Psychiatry: No homicidal ideation. No suicidal ideation. No flat affect; smiles appropriately Results & Data Results & Data Vital Signs (Past 12 Hours) Vital Signs Temp Pulse Resp BP Pulse Ox O2 Del Method 03/13/25 19:17 36.8 C 81 16 115/66 95 Room Air 03/13/25 15:00 36.7 C 82 18 119/68 98 Room Air Laboratory Results Abnormal lab results 03/12/25 03/13/25 Range/Units 22:00 08:36 WBC 3.99 L (4.8-10.8) K/ul Hgb 10.1 L (12.0-16.0) g/dl Hct 33.8 L (37.0-47.0) % MCV 73.2 L (80.0-100.0) fL MCH 21.9 L (25.0-34.0) pg MCHC 29.9 L (32.0-36.0) g/dL RDW Std Deviation 47.8 H (36.4-46.3) fL RDW Coeff of Jaymie 19.0 H (11.5-14.5) % MPV 9.0 L (9.4-12.4) fL Lymph # (Auto) 0.58 L (1.20-3.40) K/uL Ur Specific [place] > 1.045 H (1.000-1.030) Urine Opiates Screen Pos H (Neg) MDMA (Ecstasy) Screen Pos H (Neg) Diagnostic Findings Chest X-Ray 03/12/25 17:19 EXAM: Radiograph of the Chest 1 View INDICATION: Trauma TECHNIQUE: Frontal view of the chest. COMPARISON: No relevant prior studies available. FINDINGS: Lungs and pleural spaces: No consolidation or pulmonary edema. No pleural effusion or pneumothorax. Heart: Shape and configuration within normal limits allowing for technique. Mediastinum: Small sliding hiatal hernia noted. Bones/joints: Visualized portion of right shoulder arthroplasty components well-seated and intact. No acute osseous abnormality. Rotator cuff thinning noted in the left shoulder. Soft tissues: No abnormality noted. No radiopaque foreign body noted. Vasculature: Mild ectatic aorta with minimal large calcification. Upper abdomen: No abnormality noted. IMPRESSION: No acute cardiopulmonary disease. ACT 112: N/A Electronically signed by Elizabeth Gamboa 03-12-2025 6:24 PM Head CTA 03/12/25 17:19 EXAM: CT Angiography Head and Neck With Intravenous Contrast INDICATION: Lightheadedness. Fell twice today. TECHNIQUE: [place]/head and neck CT angiography protocol performed with intravenous contrast. Sagittal and coronal reformatted images were created and reviewed. This CT exam was performed using one or more of the following dose reduction techniques: automated exposure control, adjustment of the mA and/or kV according to patient size, and/or use of iterative reconstruction technique. MIP reconstructed images were created and reviewed. CONTRAST: 119ml of Optiray 320 was administered intravenously. COMPARISON: None. FINDINGS: HEAD: Right anterior cerebral artery: No abnormality noted. No occlusion or significant stenosis. Anterior communicating artery is present. No aneurysm. Right middle cerebral artery: No abnormality noted. No occlusion or significant stenosis. No aneurysm. Right posterior cerebral artery: No abnormality noted. No occlusion or significant stenosis. No aneurysm. Right intracranial internal carotid artery: There is mild atherosclerotic plaque of the intracranial right internal carotid artery. No stenosis, aneurysm, occlusion or dissection. Right intracranial vertebral artery: No abnormality noted. No significant stenosis. No dissection or occlusion. Left anterior cerebral artery: No abnormality noted. No occlusion or significant stenosis. No aneurysm. Left middle cerebral artery: No abnormality noted. No occlusion or significant stenosis. No aneurysm. Left posterior cerebral artery: No abnormality noted. No occlusion or significant stenosis. No aneurysm. Left intracranial internal carotid artery: There is mild atherosclerosis of the intracranial left internal carotid artery. No stenosis, aneurysm, occlusion or dissection. There is mild atherosclerotic plaque of the intracranial left internal carotid artery. No stenosis, aneurysm, occlusion or dissection. Left intracranial vertebral artery: No abnormality noted. No significant stenosis. No dissection or occlusion. Basilar artery: No abnormality noted. No occlusion or significant stenosis. No aneurysm. Other vasculature: Patent dural venous sinuses. No vascular malformation. NECK: Right common carotid artery: No abnormality noted. No significant stenosis. No dissection or occlusion. Right extracranial internal carotid artery: No abnormality noted. No significant stenosis. No dissection or occlusion. Right external carotid artery: No abnormality noted. No occlusion. Right extracranial vertebral artery: No abnormality noted. No significant stenosis. No dissection or occlusion. Left common carotid artery: No abnormality noted. No significant stenosis. No dissection or occlusion. Left extracranial internal carotid artery: No abnormality noted. No significant stenosis. No dissection or occlusion. Left external carotid artery: No abnormality noted. No occlusion. Left extracranial vertebral artery: No abnormality noted. No significant stenosis. No dissection or occlusion. Brachiocephalic and subclavian arteries: There is mild calcific plaque at the origin of the left subclavian artery. No stenosis, dissection or aneurysm. Lung apices: No significant abnormality noted. HEAD and NECK: Bones/joints: No significant abnormality. Soft tissues: No abnormality noted. CAROTID STENOSIS REFERENCE USING NASCET CRITERIA: % ICA stenosis = (1 - narrowest ICA diameter/diameter of distal cervical ICA) x 100. Mild - <50% stenosis. Moderate - 50-69% stenosis. Severe - 70-94% stenosis. Near occlusion - 95-99% stenosis. Occluded - 100% stenosis. IMPRESSION: 1. No angiographic abnormality in the head or neck. 2. 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 ACT 112: N/A Electronically signed by Elizabeth Gamboa 03-12-2025 6:20 PM Neck CTA 03/12/25 17:19 EXAM: CT Angiography Head and Neck With Intravenous Contrast INDICATION: Lightheadedness. Fell twice today. TECHNIQUE: [place]/head and neck CT angiography protocol performed with intravenous contrast. Sagittal and coronal reformatted images were created and reviewed. This CT exam was performed using one or more of the following dose reduction techniques: automated exposure control, adjustment of the mA and/or kV according to patient size, and/or use of iterative reconstruction technique. MIP reconstructed images were created and reviewed. CONTRAST: 119ml of Optiray 320 was administered intravenously. COMPARISON: None. FINDINGS: HEAD: Right anterior cerebral artery: No abnormality noted. No occlusion or significant stenosis. Anterior communicating artery is present. No aneurysm. Right middle cerebral artery: No abnormality noted. No occlusion or significant stenosis. No aneurysm. Right posterior cerebral artery: No abnormality noted. No occlusion or significant stenosis. No aneurysm. Right intracranial internal carotid artery: There is mild atherosclerotic plaque of the intracranial right internal carotid artery. No stenosis, aneurysm, occlusion or dissection. Right intracranial vertebral artery: No abnormality noted. No significant stenosis. No dissection or occlusion. Left anterior cerebral artery: No abnormality noted. No occlusion or significant stenosis. No aneurysm. Left middle cerebral artery: No abnormality noted. No occlusion or significant stenosis. No aneurysm. Left posterior cerebral artery: No abnormality noted. No occlusion or significant stenosis. No aneurysm. Left intracranial internal carotid artery: There is mild atherosclerosis of the intracranial left internal carotid artery. No stenosis, aneurysm, occlusion or dissection. There is mild atherosclerotic plaque of the intracranial left internal carotid artery. No stenosis, aneurysm, occlusion or dissection. Left intracranial vertebral artery: No abnormality noted. No significant stenosis. No dissection or occlusion. Basilar artery: No abnormality noted. No occlusion or significant stenosis. No aneurysm. Other vasculature: Patent dural venous sinuses. No vascular malformation. NECK: Right common carotid artery: No abnormality noted. No significant stenosis. No dissection or occlusion. Right extracranial internal carotid artery: No abnormality noted. No significant stenosis. No dissection or occlusion. Right external carotid artery: No abnormality noted. No occlusion. Right extracranial vertebral artery: No abnormality noted. No significant stenosis. No dissection or occlusion. Left common carotid artery: No abnormality noted. No significant stenosis. No dissection or occlusion. Left extracranial internal carotid artery: No abnormality noted. No significant stenosis. No dissection or occlusion. Left external carotid artery: No abnormality noted. No occlusion. Left extracranial vertebral artery: No abnormality noted. No significant stenosis. No dissection or occlusion. Brachiocephalic and subclavian arteries: There is mild calcific plaque at the origin of the left subclavian artery. No stenosis, dissection or aneurysm. Lung apices: No significant abnormality noted. HEAD and NECK: Bones/joints: No significant abnormality. Soft tissues: No abnormality noted. CAROTID STENOSIS REFERENCE USING NASCET CRITERIA: % ICA stenosis = (1 - narrowest ICA diameter/diameter of distal cervical ICA) x 100. Mild - <50% stenosis. Moderate - 50-69% stenosis. Severe - 70-94% stenosis. Near occlusion - 95-99% stenosis. Occluded - 100% stenosis. IMPRESSION: 1. No angiographic abnormality in the head or neck. 2. 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 ACT 112: N/A Electronically signed by Elizabeth Gamboa 03-12-2025 6:20 PM Elbow X-Ray 03/12/25 17:20 EXAM: Radiographs of the Right Elbow Complete 3 Views INDICATION: Trauma TECHNIQUE: Frontal, lateral and oblique views of the right elbow. COMPARISON: No relevant prior studies available. FINDINGS: Bones/joints: No fracture, erosion or dislocation. Soft tissues: No abnormality noted. No radiopaque foreign body noted. IMPRESSION: No abnormality noted. ACT 112: N/A Electronically signed by Elizabeth Gamboa 03-12-2025 6:20 PM Forearm X-Ray 03/12/25 17:20 EXAM: Radiographs of the Right Forearm 2 Views INDICATION: Trauma TECHNIQUE: Frontal and lateral views of the right forearm. COMPARISON: No relevant prior studies available. FINDINGS: Bones/joints: No fracture, erosion or dislocation. Soft tissues: See below. Tubes, lines and devices: Intravenous catheter noted in the soft tissues dorsal medial distal forearm. No other foreign body noted. IMPRESSION: No fracture of the right forearm. ACT 112: N/A Electronically signed by Elizabeth Gamboa 03-12-2025 6:24 PM Humerus X-Ray 03/12/25 17:20 EXAM: Radiographs of the Right Humerus 2 Views INDICATION: Trauma TECHNIQUE: Frontal and lateral views of the right humerus. COMPARISON: No relevant prior studies available. FINDINGS: Limitations: None. Bones/joints: Shoulder arthroplasty components well-seated, intact and normally position. No fracture or dislocation. Visualized right ribs and scapula intact. Soft tissues: No abnormality noted. No radiopaque foreign body noted. IMPRESSION: No acute abnormality of the right humerus. ACT 112: N/A Electronically signed by Elizabeth Gamboa 03-12-2025 6:24 PM Chest CTA 03/12/25 17:26 EXAM: CT Angiography Chest With Intravenous Contrast INDICATION: Lightheadedness. Syncope. TECHNIQUE: Axial computed tomographic angiography images of the chest with intravenous contrast. Sagittal and coronal reformatted images were created and reviewed. This CT exam was performed using one or more of the following dose reduction techniques: automated exposure control, adjustment of the mA and/or kV according to patient size, and/or use of iterative reconstruction technique. MIP reconstructed images were created and reviewed. CONTRAST: 119ml of Optiray 320 was administered intravenously. COMPARISON: 11/06/2024 FINDINGS: Pulmonary arteries: No abnormality noted. No pulmonary embolism. Aorta: See below. Lungs and pleural spaces: No change 3 mm right pulmonary nodule along the right fissure series 6 image 60/111. Stable subpleural probable granuloma in the right lower lobe. [place] stable benign-appearing nodules along the fissures measuring up to 6 mm. No further assessment required. No bronchiectasis, honeycombing or reticulation. Heart: No abnormality noted. No cardiomegaly. No significant pericardial effusion. No evidence of RV dysfunction. Mediastinum: Postoperative changes of the stomach and GE junction with stable small sliding hiatal hernia. Bones/joints: Streak artifact from right shoulder arthroplasty. No acute osseous abnormality. Soft tissues: No abnormality noted. Lymph nodes: Stable bilateral hilar adenopathy. Stable shotty nodes lateral to the aorta. IMPRESSION: 1. No pulmonary embolus noted. 2. No pulmonary infiltrate. 3. Stable adenopathy. ACT 112: N/A Electronically signed by Elizabeth Gamboa 03-12-2025 6:41 PM Brain MRI 03/13/25 10:43 MR brain wo con CLINICAL HISTORY: dizziness, lightheadedness COMPARISON STUDY: CT scan yesterday and MRI of 11/30/2009 FINDINGS: No restricted diffusion seen to suggest acute infarction. No mass effect, midline shift, or hydrocephalus. No significant signal abnormality in the brain. IMPRESSION: No evidence of acute infarction. ACT 112: Negative or not required by law. Electronically signed by: Catracho Kaiser M.D. 03/13/2025 12:28 PM PG Care Time/CCT Total # of Minutes Spent Total Time Spent with Patient: Total time spent is greater than 50% in coordination of care (as documented) at patient's floor/unit and/or counseling patient: Coding Level of Care Code 56327 SUB INP/OBS CARE 2/35MIN Diagnoses Dizziness R42 Viral syndrome B34.9
[2025-03-14] MEDS: CYCLOBENZAPRINE HCL 10 MG TAB PO PRN (03:21)
--- NOTE | 2025-03-14 08:15 | Discharge Summary ---
Discharge Summary Date of Service March 14, 2025 Principal Dx & Hospital Course #1 = Principal Diagnosis (1) Dizziness: See Plan below for details. (2) Viral syndrome: See Plan below for details. Plan 59 years old female with PMH of FULL CODE @ home, obesity with BMI 30.5 (height 160.0 cm; weight 78.1 kg), s/p gastric bypass surgery (2008, [facility] @ [place]) with pre-surgical weight of 325 pounds and post-surgical weight of 165 pounds, followed by subsequent development of chronic microcytic, hypochromic anemia with baseline Hb range, 10.0 - 11.5 g/dL (04/18/2020 - 02/25/2025), due to iron deficiency (for which patient received IV iron infusion in the past 2 weeks) and vitamin B12 deficiency (for which patient receives intermittent vitamin B12 supplement(s)), GERD on esomeprazole 20mg PO qam for the past several years, MRSA+ nares (date unknown), HTN on lisinopril 10mg PO qam prn HTN, mild intermittent asthma, never intubated or ventilated, on albuterol MDI 90ug/puff, 2 puffs PO q4 prn SOB/THOMAS, major depression on bupropion XL 300mg PO qam, chronic pain disorder in left ankle after having undergone 20+ surgeries on/in the left ankle over the past 15 years with [facility] Surgeon Dr. Anthony Harman, now on dilaudid 4mg PO q2-4h prn pain in/on left ankle and flexeril 10mg PO tid prn muscle spasms in left ankle/leg, with subsequent development of chronic nominal elevation in ALK PHOS level, with baseline ALK PHOS range, 107-132 U/L (12/09/2017 - 11/05/2024), who underwent right reverse shoulder replacement (10/11/2025, [facility] Dr. 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 I didn't fall down at all. Then, today (03/12/2025), I fell down twice in my home: the first time was at 9:45am in my mud room, just before I went outside to my garage, I fell down and landed on my right arm on the floor of the mud room. I did not pass out. I got up by myself. The second time I fell was at 3:45pm upstairs in the hallway, and I landed with both my hands outstretched. My hands and wrists don't hurt at all. The pain in my right arm is like a 6-7 (out of 10 point intensity scale), but the ER doctor said my right arm is not broken. I haven't fall down before. I don't know why I fell down twice today, other than my feeling off balance at work last week, but not so today. I zaheero." Patient was subsequently placed in OBSERVATION on the hospitalist service @ [facility] on 03/12/2025 with the following diagnoses: 1. Acute ambulatory dysfunction resulting in 2 mechanical falls at home on 03/12/2025, 9:45am, 3:45pm, most probably due to acute viral syndrome given the concomitant findings of acute leukopenia with WBC 4.31, acute peripheral lymphocytopenia with L17%, and acute peripheral monocytosis with M10% (03/12/2025, 5:31pm). R/O alternative etiologies for acute ambulatory dysfunction including acute UTI; hypophosphatemia; polypharmacy involving concomitant administration of home-scheduled esomeprazole 20mg PO qam (recognizing that drugs in the proton pump inhibitor class are well known to cause falls, fractures, hyponatremia, thrombocytopenia, etc), promethazine 25mg PO q4-6 prn nausea/vomiting, dilaudid 4mg PO q2-4 prn pain in left ankle after having undergone 20+ surgeries on/in the left ankle over the past 15 years with [facility] Surgeon Dr. Anthony Harman). 2. Incidental finding of "small sliding hiatal hernia in situ." (as reported on 03/12/2025, 5:19pm portable CXR). 3. Chronic pain disorder in left ankle after having undergone 20+ surgeries on/in the left ankle over the past 15 years with [facility] Surgeon Dr. Anthony Harman, now on dilaudid 4mg PO q2-4h prn pain in/on left ankle and flexeril 10mg PO tid prn muscle spasms in left ankle/leg. 4. Chronic nominal elevation in ALK PHOS level, with baseline ALK PHOS range, 107-132 U/L (12/09/2017 - 11/05/2024), cf., admission ALK PHOS 112 U/L (03/12/2025, 5:31pm). To address #1, patient underwent BIOFIRE respiratory pathogen panel (03/12/2025, 8:00pm) and which was reported as negative for all tested microbes; even a foy- negative result from BIOFIRE respiratory pathogen panel testing does not dissuade my firm conviction that patient suffers from an acute viral syndrome as there are not many, if any, plausible explanations to account for the concomitant findings of acute leukopenia with WBC 4.31, acute peripheral lymphocytopenia with L17%, and acute peripheral monocytosis with M10% (03/12/2025, 5:31pm). In most acute viral syndromes, the targets of infection are the lymphocytes and the monocytes, with direct cytopathic effects on lymph ocytes (culminating in lymphocytopenia) and direct recruitment of monocytes/macrophages (culminating in monocytosis). To address the less likely alternatives of acute UTI; hypothyroidism; hypophosphatemia; and polypharmacy, patient awaits U/A with microscopy; PO4; and urine drug toxicology screening, respectively, while discontinuing patient's home-scheduled esomeprazole 20mg PO qam immediately/permanently, as well as patient's home-scheduled promethazine 25mg PO q4-6 prn nausea/vomiting. At this time, I have opted to continue patient's home-scheduled dilaudid 4mg PO q2-4 prn pain in left ankle after having undergone 20+ surgeries on/in the left ankle over the past 15 years with [facility] Surgeon Dr. Anthony Harman), as I surmise that this patient will not be able to sleep overnight (03/12/2025 or 03/13/2025) without this medication. Of final note, patient underwent PT/OT Service evaluations in the 03/14/2025, 8:00am to determine if patient could be discharged back to her home safely or if patient should be discharged to SNF for short-term rehab. Subsequently, patient was deemed fit for discharge back to her home. 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 To address #2, patient was started on famotidine 40mg PO qam, as I discontinued patient's home-scheduled esomeprazole 20mg PO qam immediately/permanently on 03/12/2025, 8:00pm, given the potential for patient's home-scheduled esomeprazole 20mg PO qam to cause falls, fractures, hyponatremia, thrombocytopenia, etc). Patient will continue with famotidine 40mg PO qam on hospital discharge back to her home on 03/14/2025. To this end, patient's [id number] ([address] [place] [id number]) received an electronic prescription for famotidine 40mg PO qam, #30 tablets, no refills, prior to hospital discharge back to her home on 03/14/2025. To address #3, patient continues to receive her home-scheduled dilaudid 4mg PO q2-4h prn pain in/on left ankle and flexeril 10mg PO tid prn muscle spasms in left ankle/leg. I also started patient on dilaudid 0.5mg IV q2h prn pain in/on the right arm on 03/13/2025, 10:05am. Patient will continue only with her home- scheduled dilaudid 4mg PO q2-4h prn pain in/on left ankle and flexeril 10mg PO tid prn muscle spasms in left ankle/leg on hospital discharge back to her home on 03/14/2025. Patient will NOT continue with dilaudid 0.5mg IV q2h prn pain in/on the right arm on hospital discharge back to her home on 03/14/2025. Instead, patient will utilize her home-scheduled dilaudid 4mg PO q2-4h prn pain in/on right arm on hospital discharge back to her home on 03/14/2025. To address #4, patient was observed without any need for further ALK PHOS level testing as I surmise that the nominal ALK PHOS elevation is due to chronic inflammation in this patient who has undergone 20+ surgeries on/in the left ankle over the past 15 years with [facility] Surgeon Dr. Anthony Harman). Admission HPI Per Admitting Provider 59 years old female with PMH of FULL CODE @ home, obesity with BMI 30.5 (height 160.0 cm; weight 78.1 kg), s/p gastric bypass surgery (2008, [facility] @ [place]) with pre-surgical weight of 325 pounds and post-surgical weight of 165 pounds, followed by subsequent development of chronic microcytic, hypochromic anemia with baseline Hb range, 10.0 - 11.5 g/dL (04/18/2020 - 02/25/2025), due to iron deficiency (for which patient received IV iron infusion in the past 2 weeks) and vitamin B12 deficiency (for which patient receives intermittent vitamin B12 supplement(s)), GERD on esomeprazole 20mg PO qam for the past several years, MRSA+ nares (date unknown), HTN on lisinopril 10mg PO qam prn HTN, mild intermittent asthma, never intubated or ventilated, on albuterol MDI 90ug/puff, 2 puffs PO q4 prn SOB/THOMAS, major depression on bupropion XL 300mg PO qam, chronic pain disorder in left ankle after having undergone 20+ surgeries on/in the left ankle over the past 15 years with [facility] Surgeon Dr. Anthony Harman, now on dilaudid 4mg PO q2-4h prn pain in/on left ankle and flexeril 10mg PO tid prn muscle spasms in left ankle/leg, with subsequent development of chronic nominal elevation in ALK PHOS level, with baseline ALK PHOS range, 107-132 U/L (12/09/2017 - 11/05/2024), who underwent right reverse shoulder replacement (10/11/2025, [facility]geon Dr. 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 I didn't fall down at all. Then, today (03/12/2025), I fell down twice in my home: the first time was at 9:45am in my mud room, just before I went outside to my garage, I fell down and landed on my right arm on the floor of the mud room. I did not pass out. I got up by myself. The second time I fell was at 3:45pm upstairs in the hallway, and I landed with both my hands outstretched. My hands and wrists don't hurt at all. The pain in my right arm is like a 6-7 (out of 10 point intensity scale), but the ER doctor said my right arm is not broken. I haven't fall down before. I don't know why I fell down twice today, other than my feeling off balance at work last week, but not so today. I brittany." Patient denies antecedent/coincident anosmia, ageusia, hypogeusia, myalgias, arthralgias, rhinorrhea, otorrhea, fevers, chills, diaphoresis, shortness of breath, dyspnea on exertion, cough, wheeze, sore throat, hemoptysis, chest pains, palpitations, pleurisy, nausea, vomiting, diarrhea, abdominal pain, pelvic pain, flank pain, back pain, shoulder pain, hematemesis, hematochezia, melena, hematuria, dysuria, frequency, urgency, headaches, dizziness, li ghtheadedness, visual changes, hearing changes, weakness, syncope, travel history, sick contacts, or food/drug ingestions novel or new. All other review of systems are reported as negative by the patient on observation date 03/12/2025. In [facility] ER bed #C7, patient was afebrile @ 36.4 degrees Celsius, HR 96, RR 18, O2 sat 98% on room air, and BP 139/80 (03/12/2025, 4:58pm). Exam was noted for non-tender, resolving ecchymoses on right biceps, and full range of motion @ right shoulder, biceps, triceps, elbow, forearm, wrist, and fingers, with patient's right arm supported by a cloth sling. Patient's left ankle, s/p 20+ surgeries on/in the left ankle over the past 15 years with [facility] Surgeon Dr. Anthony Harman, now on dilaudid 4mg PO q2-4h prn pain in/on left ankle and flexeril 10mg PO tid prn muscle spasms in left ankle/leg, appeared minimally deformed with no edema, induration, warmth, tenderness, crepitus, fluctuance, discharge (sanguineous, serous, suppurative), ulceration, malodor, or lymphangitic streaking. Labs in [facility] ER bed #C7 included: WBC 4.31, N71 L17 M10 E1 B1, Hb 11.8, MCV 71.5, MCHC 31.0, platelet 278 (03/12/2025, 5:31pm). Na 142, K 3.9, BUN 10, creatinine 0.52, glucose 98, Ca 9.8, AST 20, ALT 21, ALK PHOS 112, TBili 0.5 (03/12/2025, 5:31pm). Mg 1.9 (03/12/2025, 5:31pm). PO4 __ (03/12/2025, 7:45pm). TSH 1.086 uIU/mL (03/12/2025, 5:31pm). TSH 1.111 uIU/mL (03/12/2025, 7:45pm). U/A (03/12/2025, 5:19pm; re-ordered 7:10pm): ____ Urine drug screen (03/12/2025, 7:19pm): BIOFIRE respiratory pathogen panel (03/12/2025, 8:00pm): MRSA nares screen (03/12/2025, 8:00pm): Additional testing in [facility] ER bed #C7 included: Portable CXR (03/12/2025, 5:19pm): No infiltrate, effusion, cardiomegaly, pulmonary vascular congestion, or pneumothorax. Small sliding hiatal hernia in situ. (by my review). CTA head (03/12/2025, 5:19pm): No angiographic abnormality in the head or neck. 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 CTA neck (03/12/2025, 5:19pm): No angiographic abnormality in the head or neck. 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 Right elbow x-ray (03/12/2025, 5:20pm): No fracture, erosion, or dislocation of right elbow. Right forearm x-ray (03/12/2025, 5:20pm): No fracture, erosion, or dislocation of right forearm. Right humerus x-ray (03/12/2025, 5:20pm): No fracture, erosion, or dislocation of right humerus. CTA chest (03/12/2025, 5:20pm): No PE. No infiltrate. No change 3 mm right pulmonary nodule along the right fissure series 6 image 60/111. Stable subpleural probable granuloma in the right lower lobe. Appearance stable benign-appearing nodules along the fissures measuring up to 6 mm. Stable bilateral hilar adenopathy. Stable shotty nodes lateral to the aorta. cf., 11/05/2024 CTA chest. Patient was subsequently placed in OBSERVATION on the hospitalist service @ [facility] on 03/12/2025 with the following diagnoses: 1. Acute ambulatory dysfunction resulting in 2 mechanical falls at home on 03/12/2025, 9:45am, 3:45pm, most probably due to acute viral syndrome given the concomitant findings of acute leukopenia with WBC 4.31, acute peripheral lymphocytopenia with L17%, and acute peripheral monocytosis with M10% (03/12/2025, 5:31pm). R/O alternative etiologies for acute ambulatory dysfunction including acute UTI; hypophosphatemia; polypharmacy involving concomitant administration of home-scheduled esomeprazole 20mg PO qam (recognizing that drugs in the proton pump inhibitor class are well known to cause falls, fractures, hyponatremia, thrombocytopenia, etc), promethazine 25mg PO q4-6 prn nausea/vomiting, dilaudid 4mg PO q2-4 prn pain in left ankle after having undergone 20+ surgeries on/in the left ankle over the past 15 years with [facility] Surgeon Dr. Anthony Harman). 2. Incidental finding of "small sliding hiatal hernia in situ." (as reported on 03/12/2025, 5:19pm portable CXR). 3. Chronic pain disorder in left ankle after having undergone 20+ surgeries on/in the left ankle over the past 15 years with [facility] Surgeon Dr. Anthony Harman, now on dilaudid 4mg PO q2-4h prn pain in/on left ankle and flexeril 10mg PO tid prn muscle spasms in left ankle/leg. 4. Chronic nominal elevation in ALK PHOS level, with baseline ALK PHOS range, 107-132 U/L (12/09/2017 - 11/05/2024), cf., admission ALK PHOS 112 U/L (03/12/2025, 5:31pm). To address #1, patient awaits BIOFIRE respiratory pathogen panel (03/12/2025, 8:00pm); even a foy-negative result from BIOFIRE respiratory pathogen panel testing will not dissuade my firm conviction that patient suffers from an acute viral syndrome as there are not many, if any, plausible explanations to account for the concomitant findings of acute leukopenia with WBC 4.31, acute peripheral lymphocytopenia with L17%, and acute peripheral monocytosis with M10% (03/12/2025, 5:31pm). In most acute viral syndromes, the targets of infection are the lymphocytes and the monocytes, with direct cytopathic effects on lymphocytes (culminating in lymphocytopenia) and direct recruitment of monocytes/macrophages (culminating in monocytosis). To address the less likely alternatives of acute UTI; hypothyroidism; hypophosphatemia; and polypharmacy, patient awaits U/A with microscopy; PO4; and urine drug toxicology screening, respectively, while discontinuing patient's home-scheduled esomeprazole 20mg PO qam immediately/permanently, as well as patient's home-scheduled promethazine 25mg PO q4-6 prn nausea/vomiting. At this time, I have opted to continue patient's home-scheduled dilaudid 4mg PO q2-4 prn pain in left ankle after having undergone 20+ surgeries on/in the left ankle over the past 15 years with [facility]opedic Surgeon Dr. Anthony Harman), as I surmise that this patient will not be able to sleep overnight (03/12/2025) without this medication. Of final note, patient awaits PT/OT Service evalu ations in the 03/13/2025, 8:00am to determine if patient can be discharged back to her home safely or if patient should be discharged to SNF for short-term rehab. 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 To address #2, patient has been started on famotidine 40mg PO qam, as I have discontinued patient's home-scheduled esomeprazole 20mg PO qam imme diately/permanently on 03/12/2025, 8:00pm, given the potential for patient's home-scheduled esomeprazole 20mg PO qam to cause falls, fractures, hyponatremia, thrombocytopenia, etc). To address #3, patient continues to receive her home-scheduled dilaudid 4mg PO q2-4h prn pain in/on left ankle and flexeril 10mg PO tid prn muscle spasms in left ankle/leg. To address #4, patient is being observed without any need for further ALK PHOS level testing as I surmise that the nominal ALK PHOS elevation is due to chronic inflammation in this patient who has undergone 20+ surgeries on/in the left ankle over the past 15 years with [facility] Surgeon Dr. Anthony Harman). Discharge Exam Constitutional General: Comfortable, coherent, cooperative. Wide awake and alert. Not confused, lethargic, or obtunded. Patient speaks in complete, fluent, and articulate sentences without pause, cough, or wheeze, with O2 sat 96% on room air (03/14/2025, 7:31am). HEENT: Normocephalic, atraumatic. Extra-ocular muscles intact. Pupils equally round and reactive to light. No nystagmus, gaze paresis, anisocoria, miosis, mydriasis, hyphema, scleral injection, conjunctivitis, or pterygium. No otorrhea or rhinorrhea. No pharyngeal erythema, edema, or discharge. Neck: Supple, no stridor, bruit, goiter, or hepato-jugular reflux. Jugular venous pressure is estimated to be 3 cm above the sternal angle of Heber, which in turn, is 5 cm above the level of the right atrium; with jugular venous pressure estimated to be 8 cm, then, there is no jugular venous distention on 03/14/2025. Lymphatics: No cervical (anterior/posterior), supraclavicular, infraclavicular, axillary, epitrochlear, or inguinal adenopathy. Chest: Symmetric rise and fall with respirations. Non-tender to palpation. Lungs: Clear to auscultation and percussion. No audible expiratory wheeze, egophony, pectoriloquy, increase in tactile fremitus, or flatness/dullness to percussion at the bases. Heart: Regular rate and rhythm. S1 and S2 noted. No S3 or S4 summation gallop. No tripartite friction rub. Grade II/ early systolic murmur @ LLSB without radiation to the carotids, axilla, or back, and which re andrea invariant in regards to the respiratory cycle. Abdomen: Soft, non-tender, non-distended. No rebound, guarding, Morgan's sign, or organomegaly. Bowel sounds auscultated in all 4 quadrants. Extremities: No clubbing, cyanosis, or edema. 2+ pedal pulses bilaterally. Non-tender, resolving ecchymoses on right biceps, and full range of motion @ right shoulder, biceps, triceps, elbow, forearm, wrist, and fingers, with patient's right arm supported by a cloth sling. Patient's left ankle, s/p 20+ surgeries on/in the left ankle over the past 15 years with [facility]opedic Surgeon Dr. Anthony Harman, now on dilaudid 4mg PO q2- 4h prn pain in/on left ankle and flexeril 10mg PO tid prn muscle spasms in left ankle/leg, appeared minimally deformed with no edema, induration, warmth, tenderness, crepitus, fluctuance, discharge (sanguineous, serous, suppurative), ulceration, malodor, or lymphangitic streaking. Skin: No decubitus ulcer, exanthem, or enanthem. Genito-urinary: No urethral discharge. No peralta catheter. Neurology: Alert and oriented in regards to person, place, time, and situation. DTR+ and symmetric. 5/5 motor strength in all 4 extremities, both proximally and distally. No pronator drift. No facial droop. No dysarthria. Psychiatry: No homicidal ideation. No suicidal ideation. No flat affect; smiles appropriately Discharge Plan Discharge Items Patient Disposition: Home - Self-Care Reason For Visit: GENERALIZED WEAKNESS Discharge Diagnosis: Acute viral syndrome / labyrinthitis Condition on Discharge: Good Activity: Resume your previous activity Lifting: Gradually increase as tolerated Bathing: No limitations Sexual Activity: When tolerated Exercise/Sports: As tolerated Driving/Machine Use: No limitations Weightbearing: Full weightbearing Non-emergency contact: Primary Care Provider Call non-emergency contact if: you have any medication questions Follow-up/Referrals: James Mixon [Primary Care Provider] - Diet: Heart Healthy Addtl Attending Provider Instructions: See your PCP Dr. James Mixon within 5 days of hospital discharge. Pending Studies at Discharge: No Stand-Alone Forms: [facility]age, Smoking Cessation Medications and DC Order Prescriptions: New famotidine 40 mg Tablet 40 mg PO QAM Qty: 30 0RF Continued cyclobenzaprine 10 mg tablet 10 mg PO TID PRN (Reason: muscle spasm) Qty: 20 0RF lisinopril [Zestril] 20 mg tablet 10 mg PO QAM cyanocobalamin (vitamin B-12) [Dodex] 1,000 mcg/mL solution 1,000 mcg IM WK Rx Instructions: FRIDAYS albuterol sulfate [Ventolin HFA] 90 mcg/actuation HFA aerosol inhaler 2 puff INHALATION Q4 PRN (Reason: Shortness Of Breath Or Wheezing) hydromorphone [Dilaudid] 4 mg tablet 4 mg PO Q6H PRN (Reason: Pain) Premarin 0.625 mg/gram cream 0.625 mg vaginal .[id number] bupropion HCl [Wellbutrin XL] 300 mg tablet extended release 24 hr 300 mg PO QAM Discontinued promethazine 6.25 mg/5 mL syrup 25 mg PO .Q4-6HRS PRN (Reason: Nausea And Vomiting) Rx Instructions: 20ml dose amoxicillin 500 mg tablet 2,000 mg PO DIRECTED PRN (Reason: 1 HR PRIOR TO DENTAL PROCEDURES) esomeprazole magnesium [Nexium] 20 mg Capsule,Delayed Release(Dr/Ec) 20 mg PO QAM Patient Comments: Pt ran out of medication Discharge Orders: Discharge Order (Routine); Ordered 03/14/25 Ordered By: Mau Combs Admission Data Admit Date/Time: 03/12/25 19:10 Attending Provider: Mau Combs Admit Provider: Mau Combs Primary Care Provider: James Mixon Other Providers: Mau Combs Hospital Stay Data Consultations 03/12/25 18:27 ED Decision to Admit Stat Diagnostic Imagining Performed 03/12/25 17:19 CT angio head wo/w Stat CT angio neck with con Stat 03/12/25 17:26 CT angio chest PE protocol Stat 03/13/25 10:43 MRI Brain [MR brain wo con] Stat Pending Results Patient Have Any Pending Studies at Discharge: No Discharge Instructions Given to Patient (Per Discharging Provider) See your PCP Dr. James Mixon within 5 days of hospital discharge. Total Time Total Time Spent Total Time Spent (In Minutes): 35 minutes. Of this time period, 19 minutes were spent in coordinating patient's discharge. Coding Level of Care Code 68782 INP/OBS DISCH >30 MIN Diagnoses Dizziness R42 Viral syndrome B34.9
[2025-03-14] MEDS: HYDROmorphone HCL 4 MG TAB PO PRN (11:44)
[2025-03-15] MEDS: LIDOCAINE 5% 1 PATCH TD STA (13:50)
--- NOTE | 2025-03-15 14:26 | Hospitalist Progress Note ---
Date of Service March 15, 2025 Assessment & Plan (1) Dizziness: Plan: See Plan below for details. (2) Viral syndrome: Plan: See Plan below for details. Plan 59 years old female with PMH gastric bypass surgery (2008,) chronic microcytic, hypochromic anemia iron deficiency (for which patient received IV iron infusion in the past 2 weeks) and vitamin B12 deficiency (for which patient receives intermittent vitamin B12 supplement(s)), GERD, HTN, mild intermittent asthma, major depression on bupropion XL 300mg PO qam, chronic pain disorder in left ankle after having undergone 20+ surgeries on/in the left ankle over the past 15 years with [facility] Orthopedic Surgeon Dr. Anthony Harman, now on dilaudid 4mg PO q2-4h prn pain in/on left ankle and flexeril 10mg PO tid prn muscle spasms in left ankle/leg, with subsequent development of chronic nominal elevation in ALK PHOS level, underwent right reverse shoulder replacement (10/11/2025, [facility] Orthopedic Surgeon Dr. James Maher) to treat acute biceps tears, followed by painless ecchymoses on right biceps, who comes to [facility] ER on 03/12/2025 with falling at home # Acute ambulatory dysfunction resulting in 2 mechanical falls at home on 03/12/2025, ruled out metabolic causes of weakness or unsteadiness, PT/OT eval does feel pt is fit to return home, does admit to having poor appetite of late. PPI stopped and started on famotidine # Chronic pain disorder in left ankle after having undergone 20+ surgeries on/in the left ankle over the past 15 years with [facility] Orthopedic Surgeon Dr. Anthony Harman, now on dilaudid 4mg PO q2-4h prn pain in/on left ankle and flexeril 10mg PO tid prn muscle spasms in left ankle/leg. m will try lidoderm patch to right arm # Chronic nominal elevation in ALK PHOS level, with baseline ALK PHOS range, 107-132 U/L (12/09/2017 - 11/05/2024), cf., admission ALK PHOS 112 U/L (03/12/2025, 5:31pm). Admission and Anticipated Discharge Date Admission Date: March 12, 2025 Subjective pt states remains concerned about going home as will not return until 03/16 still significant pain to right arm Physical Exam Physical Exam: awake and alert, right arm is with pain but not significantly large hematoma Results & Data Results & Data Vital Signs (Past 12 Hours) Vital Signs Temp Pulse Resp BP Pulse Ox O2 Del Method 03/15/25 07:01 98.6 F 82 18 105/65 95 Room Air PG Care Time/CCT Total # of Minutes Spent Total Time Spent with Patient: Total time spent is greater than 50% in coordination of care (as documented) at patient's floor/unit and/or counseling patient: Coding Level of Care Code 80323 SUB INP/OBS CARE 2/35MIN Diagnoses Dizziness R42 Viral syndrome B34.9
[2025-03-16 07:02] VITALS: BP 128/78; PULSE 81; RESP 16; TEMP 98.6; O2SAT 97
--- NOTE | 2025-03-16 15:30 | Discharge Summary ---
Discharge Summary Date of Service March 16, 2025 Principal Dx & Hospital Course #1 = Principal Diagnosis (1) Dizziness: See Plan below for details. (2) Viral syndrome: See Plan below for details. Plan 59 years old female with PMH gastric bypass surgery (2008,) chronic microcytic, hypochromic anemia iron deficiency (for which patient received IV iron infusion in the past 2 weeks) and vitamin B12 deficiency (for which patient receives intermittent vitamin B12 supplement(s)), GERD, HTN, mild intermittent asthma, major depression on bupropion XL 300mg PO qam, chronic pain disorder in left ankle after having undergone 20+ surgeries on/in the left ankle over the past 15 years with [facility] Orthopedic Surgeon Dr. Anthony Harman, now on dilaudid 4mg PO q2-4h prn pain in/on left ankle and flexeril 10mg PO tid prn muscle spasms in left ankle/leg, with subsequent development of chronic nominal elevation in ALK PHOS level, underwent right reverse shoulder replacement (10/11/2025, [facility] Orthopedic Surgeon Dr. James Maher) to treat acute biceps tears, followed by painless ecchymoses on right biceps, who comes to [facility] ER on 03/12/2025 with falling at home # Acute ambulatory dysfunction resulting in 2 mechanical falls at home on 03/12/2025, ruled out metabolic causes of weakness or unsteadiness, PT/OT eval does feel pt is fit to return home, does admit to having poor appetite of late. PPI stopped and started on famotidine # Chronic pain disorder in left ankle after having undergone 20+ surgeries on/in the left ankle over the past 15 years with [facility] Orthopedic Surgeon Dr. Anthony Harman, now on dilaudid 4mg PO q2-4h prn pain in/on left ankle and flexeril 10mg PO tid prn muscle spasms in left ankle/leg. m will try lidoderm patch to right arm # Chronic nominal elevation in ALK PHOS level, with baseline ALK PHOS range, 107-132 U/L (12/09/2017 - 11/05/2024), cf., admission ALK PHOS 112 U/L (03/12/2025, 5:31pm). Notes For Next Care Provider follow and attention to alk phos elevation perhaps PT for left upper arm injury continue to follow vitamin and mineral deficiencies Admission HPI Per Admitting Provider 59 years old female with PMH of FULL CODE @ home, obesity with BMI 30.5 (height 160.0 cm; weight 78.1 kg), s/p gastric bypass surgery (2008, [facility] [place]) with pre-surgical weight of 325 pounds and post-surgical weight of 165 pounds, followed by subsequent development of chronic microcytic, hypochromic anemia with baseline Hb range, 10.0 - 11.5 g/dL (04/18/2020 - 02/25/2025), due to iron deficiency (for which patient received IV iron infusion in the past 2 weeks) and vitamin B12 deficiency (for which patient receives intermittent vitamin B12 supplement(s)), GERD on esomeprazole 20mg PO qam for the past several years, MRSA+ nares (date unknown), HTN on lisinopril 10mg PO qam prn HTN, mild intermittent asthma, never intubated or ventilated, on albuterol MDI 90ug/puff, 2 puffs PO q4 prn SOB/THOMAS, major depression on bupropion XL 300mg PO qam, chronic pain disorder in left ankle after having undergone 20+ surgeries on/in the left ankle over the past 15 years with [facility] Orthopedic Surgeon Dr. Anthony Harman, now on dilaudid 4mg PO q2-4h prn pain in/on left ankle and flexeril 10mg PO tid prn muscle spasms in left ankle/leg, with subsequent development of chronic nominal elevation in ALK PHOS level, with baseline ALK PHOS range, 107-132 U/L (12/09/2017 - 11/05/2024), who underwent right reverse shoulder replacement (10/11/2025, [facility] Orthopedic Surgeon Dr. 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 I didn't fall down at all. Then, today (03/12/2025), I fell down twice in my home: the first time was at 9:45am in my mud room, just before I went outside to my garage, I fell down and landed on my right arm on the floor of the mud room. I did not pass out. I got up by myself. The second time I fell was at 3:45pm upstairs in the hallway, and I landed with both my hands outstretched. My hands and wrists don't hurt at all. The pain in my right arm is like a 6-7 (out of 10 point intensity scale), but the ER doctor said my right arm is not broken. I haven't fall down before. I don't know why I fell down twice today, other than my feeling off balance at work last week, but not so today. I brittany." Patient denies antecedent/coincident anosmia, ageusia, hypogeusia, myalgias, arthralgias, rhinorrhea, otorrhea, fevers, chills, diaphoresis, shortness of breath, dyspnea on exertion, cough, wheeze, sore throat, hemoptysis, chest pains, palpitations, pleurisy, nausea, vomiting, diarrhea, abdominal pain, pelvic pain, flank pain, back pain, shoulder pain, hematemesis, hematochezia, melena, hematuria, dysuria, frequency, urgency, headaches, dizziness, lightheadedness, visual changes, hearing changes, weakness, syncope, travel history, sick contacts, or food/drug ingestions novel or new. All other review of systems are reported as negative by the patient on observation date 03/12/2025. In [facility] ER bed #C7, patient was afebrile @ 36.4 degrees Celsius, HR 96, RR 18, O2 sat 98% on room air, and BP 139/80 (03/12/2025, 4:58pm). Exam was noted for non-tender, resolving ecchymoses on right biceps, and full range of motion @ right shoulder, biceps, triceps, elbow, forearm, wrist, and fingers, with patient's right arm supported by a cloth sling. Patient's left ankle, s/p 20+ surgeries on/in the left ankle over the past 15 years with [facility] Orthopedic Surgeon Dr. Anthony Harman, now on dilaudid 4mg PO q2-4h prn pain in/on left ankle and flexeril 10mg PO tid prn muscle spasms in left ankle/leg, appeared minimally deformed with no edema, induration, warmth, tenderness, crepitus, fluctuance, discharge (sanguineous, serous, suppurative), ulceration, malodor, or lymphangitic streaking. Labs in [facility] ER bed #C7 included: WBC 4.31, N71 L17 M10 E1 B1, Hb 11.8, MCV 71.5, MCHC 31.0, platelet 278 (03/12/2025, 5:31pm). Na 142, K 3.9, BUN 10, creatinine 0.52, glucose 98, Ca 9.8, AST 20, ALT 21, ALK PHOS 112, TBili 0.5 (03/12/2025, 5:31pm). Mg 1.9 (03/12/2025, 5:31pm). PO4 __ (03/12/2025, 7:45pm). TSH 1.086 uIU/mL (03/12/2025, 5:31pm). TSH 1.111 uIU/mL (03/12/2025, 7:45pm). U/A (03/12/2025, 5:19pm; re-ordered 7:10pm): ____ Urine drug screen (03/12/2025, 7:19pm): BIOFIRE respiratory pathogen panel (03/12/2025, 8:00pm): MRSA nares screen (03/12/2025, 8:00pm): Additional testing in [facility] ER bed #C7 included: Portable CXR (03/12/2025, 5:19pm): No infiltrate, effusion, cardiomegaly, pulmonary vascular congestion, or pneumothorax. Small sliding hiatal hernia in situ. (by my review). CTA head (03/12/2025, 5:19pm): No angiographic abnormality in the head or neck. 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 CTA neck (03/12/2025, 5:19pm): No angiographic abnormality in the head or neck. 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 Right elbow x-ray (03/12/2025, 5:20pm): No fracture, erosion, or dislocation of right elbow. Right forearm x-ray (03/12/2025, 5:20pm): No fracture, erosion, or dislocation of right forearm. Right humerus x-ray (03/12/2025, 5:20pm): No fracture, erosion, or dislocation of right humerus. CTA chest (03/12/2025, 5:20pm): No PE. No infiltrate. No change 3 mm right pulmonary nodule along the right fissure series 6 image 60/111. Stable subpleural probable granuloma in the right lower lobe. Appearance stable benign-appearing nodules along the fissures measuring up to 6 mm. Stable bilateral hilar adenopathy. Stable shotty nodes lateral to the aorta. cf., 11/05/2024 CTA chest. Patient was subsequently placed in OBSERVATION on the hospitalist service @ [facility] on 03/12/2025 with the following diagnoses: 1. Acute ambulatory dysfunction resulting in 2 mechanical falls at home on 03/12/2025, 9:45am, 3:45pm, most probably due to acute viral syndrome given the concomitant findings of acute leukopenia with WBC 4.31, acute peripheral lymphocytopenia with L17%, and acute peripheral monocytosis with M10% (03/12/2025, 5:31pm). R/O alternative etiologies for acute ambulatory dysfunction including acute UTI; hypophosphatemia; polypharmacy involving concomitant administration of home-scheduled esomeprazole 20mg PO qam (recognizing that drugs in the proton pump inhibitor class are well known to cause falls, fractures, hyponatremia, thrombocytopenia, etc), promethazine 25mg PO q4-6 prn nausea/vomiting, dilaudid 4mg PO q2-4 prn pain in left ankle after having undergone 20+ surgeries on/in the left ankle over the past 15 years with [facility] Orthopedic Surgeon Dr. Anthony Harman). 2. Incidental finding of "small sliding hiatal hernia in situ." (as reported on 03/12/2025, 5:19pm portable CXR). 3. Chronic pain disorder in left ankle after having undergone 20+ surgeries on/in the left ankle over the past 15 years with [facility] Orthopedic Surgeon Dr. Anthony Harman, now on dilaudid 4mg PO q2-4h prn pain in/on left ankle and flexeril 10mg PO tid prn muscle spasms in left ankle/leg. 4. Chronic nominal elevation in ALK PHOS level, with baseline ALK PHOS range, 107-132 U/L (12/09/2017 - 11/05/2024), cf., admission ALK PHOS 112 U/L (03/12/2025, 5:31pm). To address #1, patient awaits BIOFIRE respiratory pathogen panel (03/12/2025, 8:00pm); even a foy-negative result from BIOFIRE respiratory pathogen panel testing will not dissuade my firm conviction that patient suffers from an acute viral syndrome as there are not many, if any, plausible explanations to account for the concomitant findings of acute leukopenia with WBC 4.31, acute peripheral lymphocytopenia with L17%, and acute peripheral monocytosis with M10% (03/12/2025, 5:31pm). In most acute viral syndromes, the targets of infection are the lymphocytes and the monocytes, with direct cytopathic effects on lymphocytes (culminating in lymphocytopenia) and direct recruitment of monocytes/macrophages (culminating in monocytosis). To address the less likely alternatives of acute UTI; hypothyroidism; hypophosphatemia; and polypharmacy, patient awaits U/A with microscopy; PO4; and urine drug toxicology screening, respectively, while discontinuing patient's home-scheduled esomeprazole 20mg PO qam immediately/permanently, as well as patient's home-scheduled promethazine 25mg PO q4-6 prn nausea/vomiting. At this time, I have opted to continue patient's home-scheduled dilaudid 4mg PO q2-4 prn pain in left ankle after having undergone 20+ surgeries on/in the left ankle over the past 15 years with [facility] Orthopedic Surgeon Dr. Anthony Harman), as I surmise that this patient will not be able to sleep overnight (03/12/2025) without this medication. Of final note, patient awaits PT/OT Service evaluations in the 03/13/2025, 8:00am to determine if patient can be discharged back to her home safely or if patient should be discharged to SNF for short-term rehab. 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 To address #2, patient has been started on famotidine 40mg PO qam, as I have discontinued patient's home-scheduled esomeprazole 20mg PO qam immediately/permanently on 03/12/2025, 8:00pm, given the potential for patient's home-scheduled esomeprazole 20mg PO qam to cause falls, fractures, hyponatremia, thrombocytopenia, etc). To address #3, patient continues to receive her home-scheduled dilaudid 4mg PO q2-4h prn pain in/on left ankle and flexeril 10mg PO tid prn muscle spasms in left ankle/leg. To address #4, patient is being observed without any need for further ALK PHOS level testing as I surmise that the nominal ALK PHOS elevation is due to chronic inflammation in this patient who has undergone 20+ surgeries on/in the left ankle over the past 15 years with [facility] Orthopedic Surgeon Dr. Anthony Harman). Discharge Plan Discharge Items Patient Disposition: Home - Self-Care Reason For Visit: GENERALIZED WEAKNESS Discharge Diagnosis: Acute viral syndrome / labyrinthitis Condition on Discharge: Good Activity: Resume your previous activity Lifting: Gradually increase as tolerated Bathing: No limitations Sexual Activity: When tolerated Exercise/Sports: As tolerated Driving/Machine Use: No limitations Weightbearing: Full weightbearing Non-emergency contact: Primary Care Provider Call non-emergency contact if: you have any medication questions Follow-up/Referrals: James Mixon [Primary Care Provider] - Diet: Heart Healthy Addtl Attending Provider Instructions: See your PCP Dr. James Mixon within 5 days of hospital discharge. Pending Studies at Discharge: No Stand-Alone Forms: My [facility], Work/School Release, Smoking Cessation Medications and DC Order Prescriptions: New famotidine 40 mg Tablet 40 mg PO QAM Qty: 30 0RF lidocaine [Lidoderm] 5 % adhesive patch,medicated 1 patch topical DAILY Qty: 15 0RF Rx Instructions: leave on most painful area for up to 12 hrs Continued cyclobenzaprine 10 mg tablet 10 mg PO TID PRN (Reason: muscle spasm) Qty: 20 0RF lisinopril [Zestril] 20 mg tablet 10 mg PO QAM cyanocobalamin (vitamin B-12) [Dodex] 1,000 mcg/mL solution 1,000 mcg IM WK Rx Instructions: FRIDAYS albuterol sulfate [Ventolin HFA] 90 mcg/actuation HFA aerosol inhaler 2 puff INHALATION Q4 PRN (Reason: Shortness Of Breath Or Wheezing) hydromorphone [Dilaudid] 4 mg tablet 4 mg PO Q6H PRN (Reason: Pain) Premarin 0.625 mg/gram cream 0.625 mg vaginal .[id number] bupropion HCl [Wellbutrin XL] 300 mg tablet extended release 24 hr 300 mg PO QAM Discontinued promethazine 6.25 mg/5 mL syrup 25 mg PO .Q4-6HRS PRN (Reason: Nausea And Vomiting) Rx Instructions: 20ml dose amoxicillin 500 mg tablet 2,000 mg PO DIRECTED PRN (Reason: 1 HR PRIOR TO DENTAL PROCEDURES) esomeprazole magnesium [Nexium] 20 mg Capsule,Delayed Release(Dr/Ec) 20 mg PO QAM Patient Comments: Pt ran out of medication Discharge Orders: Discharge Order (Routine); Ordered 03/16/25 Ordered By: Kemar Tesfaye Admission Data Admit Date/Time: 03/15/25 15:37 Attending Provider: Kemar Tesfaye Admit Provider: Mau Combs Primary Care Provider: James Mixon Other Providers: Mau Combs Other Interventions: Discharge Summary Assessment (RN) Last Done: 03/16/25 15:02 Hospital Stay Data Consultations 03/12/25 18:27 ED Decision to Admit Stat Diagnostic Imagining Performed 03/12/25 17:19 CT angio head wo/w Stat CT angio neck with con Stat 03/12/25 17:26 CT angio chest PE protocol Stat 03/13/25 10:43 MRI Brain [MR brain wo con] Stat Pending Results Patient Have Any Pending Studies at Discharge: No Discharge Instructions Given to Patient (Per Discharging Provider) See your PCP Dr. James Mixon within 5 days of hospital discharge. Total Time Total Time Spent Total Time Spent (In Minutes): It required greater than 30 minutes to prepare this patient for discharge. Coding Level of Care Code 07185 INP/OBS DISCH >30 MIN Diagnoses Dizziness R42 Viral syndrome B34.9
[2025-03-18 17:47] LABS: Codeine Urine NEGATIVE ng/mL (<50); Hydrocodone Urine NEGATIVE ng/mL (<50); Hydromor Urine 1030 ng/mL (<50); MDA negative; MDEA negative; MDMA (Ecstasy) Urine, Confirm negative; Morphine Urine NEGATIVE ng/mL (<50); Norhydrocodone Conf Ur NEGATIVE ng/mL (<50); Noroxycodone Urine NEGATIVE ng/mL (<50); Oxycodone Urine NEGATIVE ng/mL (<50); Oxymorph Urine NEGATIVE ng/mL (<50)
== END 2025-03-16 16:15 | disposition home or self-care (01) | DRG 866 ==
LOC: ED 16:50 → 3W 16:50 → OBSVTOIN 19:10 → SUATTDRO 19:10 → 3W 21:32